=== PATIENT | female | born 1950 | race Caucasian/White ===

== ENCOUNTER 2019-01-23 13:09 | Emergency (ER) | payer MEDICARE, OTHER ==
[~2019-01-23] VITALS: Ht 165.1 cm; Wt 88.5 kg
[~2019-01-23 13:09] MED LIST: OMEPRAZOLE40 MG PO; PROZAC40 MG PO; SYNTHROID25 MCG; TRAZODONE HCL150 MG PO
--- OUTSIDE RECORDS SUMMARY | 2019-01-23 13:12 | XMS REPORT ---
Author Author [facility] Address Unknown Phone Unavailable Care Team Providers Care Slitter Helper Name Role Phone Unavailable Unavailable Payers Payer Name Policy Type Policy Number Effective Date Expiration Date Problems This patient has no known problems. Allergies, Adverse Reactions, Alerts Allergy Name Allergy Type Status Severity Reaction(s) Onset Date Inactive Date Treating Clinician Comments morphine DA Active [place] 2017-10-28 00:00:00 adhesive tape DA Active MO 2017-10-28 00:00:00 Medications This patient has no known medications. Results Test Description Test Time Test Comments Text Results Atomic Results Result Comments NM BONE SPECT SCAN 2017-08-27 13:05:12 CLINICAL INDICATION: M47.817 Spondyls w/o myelopathy or radiculopathy, lumbosacr regionMODALITY: Discovery NM/CT 670TECHNIQUE: 25 mCi Tc 99m MDP are injected IV. After a suitable time delay, whole body imaging images were obtained. SPECT imaging of the lumbar spine is performed with computer and physician-assisted 2-D and 3-D reconstruction. Co- registered low dose limited diagnostic CT images are obtained at the level of SPECT imaging.Computed Tomography Dose Index: 5.44 mGy.FINDINGS:COMPARISON: Fusion CT exam.CT Comments: The gallbladder is surgically absent. Uterus is surgically absent..Symmetric bilateral renal function is observed.Mild to moderate periodontal uptake is noted within the maxilla.Mild arthritic changes are seen at the acromioclavicular, glenohumeral, sternoclavicular, wrist and hip joints. Mild to moderate medial compartment bilateral knee, moderate left midfoot and moderate right first MTP joint uptake is seen.SPECT CT fusion images demonstrate moderate uptake to be present at the left lateral L4-5 intervertebral disc, moderate uptake at the right lateral L5-S1 intervertebral disc. Mild to moderate left L5-S1 facet, mild bilateral L4-5 facet uptake is observed as well.IMPRESSION:See comments above.PQRS 147: [id number]
--- NOTE | 2019-01-23 13:50 | Diagnostic Imaging Report ---
EXAMINATION: CXR 2 VIEW - HOPD INDICATION: Cough. COMPARISON: None FINDINGS: TUBES and LINES: None. LUNGS: Moderate lung volumes. Mild bronchial wall thickening. Mild patchy bibasilar opacities. No lobar consolidation. PLEURA: No pleural effusion or pneumothorax. HEART AND MEDIASTINUM: The cardiomediastinal silhouette is unremarkable. BONES AND SOFT TISSUES: No acute osseous lesion. Soft tissues are unremarkable. UPPER ABDOMEN: No free air under the diaphragm. Surgical clips project over the upper abdomen. IMPRESSION: Mild bronchial wall thickening, which may represent bronchitis in the setting of cough. Mild patchy bibasilar opacities, likely atelectasis, although early pneumonia is possible in the appropriate clinical setting. Signed by: Dr. Stpehen Meyer MD on 01/23/2019 1:46 PM
[2019-01-23] MEDS ORDERED: CEFTRIAXONE SOD 1 GM/NS 50 ML 50 ML IV ONE ×2 (14:15→14:17)
[2019-01-23] MEDS ORDERED: ALBUTEROL/IPRATROPIUM 3 ML NEB NEB ONE (14:15)
[2019-01-23] MEDS ORDERED: ALBUTEROL/IPRATROPIUM 3 ML NEB ONE (14:17)
[2019-01-23] MEDS ORDERED: CEFTRIAXONE SOD 1 GM VIAL ONE (14:58)
[2019-01-23 15:06] VITALS: BP 142/77
== END 2019-01-23 15:09 | disposition home or self-care (01) ==
LOC: FSED 13:09
DX: R05 Cough (principal); J20.9 Acute bronchitis, unspecified; I10 Essential (primary) hypertension; E11.9 Type 2 diabetes mellitus without complications; K92.9 Disease of digestive system, unspecified; F41.9 Anxiety disorder, unspecified
CPT/HCPCS: 71046; 80053; 85025; 99284; J0696 ×2

== ENCOUNTER 2020-01-08 13:58 | Emergency (ER) | payer MEDICARE, OTHER ==
[~2020-01-08] VITALS: Ht 165.1 cm; Wt 88.5 kg
--- OUTSIDE RECORDS SUMMARY | 2020-01-08 14:51 | XMS REPORT | Clinical Summary ---
Author Author [facility] Organization [facility] Address Unknown Phone Unavailable Care Team Providers Care Liquor Tester Name Role Phone Shantel Carpenter MD PCP Allergies Comments Active Allergy Reactions Severity Noted Date "tears skin" - Paper tape OK Adhesive Tape-Silicones 10/28/2017 Itching, throat tightening Morphine Swelling 10/28/2017 Medications End Date Status Medication Sig Dispensed Refills Start Date Active venlafaxine XR Take 150 mg 0 (EFFEXOR-XR) 150 MG 24 hr by mouth capsule daily. Active melatonin 10 mg tablet Take by mouth 0 nightly. Active ferrous sulfate 325 (65 Take 325 mg 0 FE) MG tablet by mouth every other day. Active folic Take 1 tablet 0 acid/multivit-min/lutein by mouth (CENTRUM SILVER ORAL) daily. Active riFAXimin (XIFAXAN) 550 Take 550 mg 0 mg tablet by mouth 2 (two) times a day. Active metFORMIN (GLUCOPHAGE) Take 1 tablet 180 tablet 1 0 1,000 mg (1,000 mg 0 tabletIndications: Type 2 total) by diabetes mellitus without mouth 2 (two) complication, without times a day long-term current use of with meals. insulin (HCC) Active imipramine (TOFRANIL) 10 Take 1 tablet 90 tablet 3 MG tabletIndications: (10 mg total) 0 Enureses by mouth nightly. Active omeprazole (PriLOSEC) 40 Take 1 90 capsule 3 0 MG capsuleIndications: capsule (40 0 Gastroesophageal reflux mg total) by disease, esophagitis mouth daily. presence not specified Active olmesartan (BENICAR) 40 Take 1 tablet 90 tablet 3 MG tabletIndications: (40 mg total) 0 Essential hypertension by mouth daily. Active glipiZIDE (GlucotroL) 10 Take 1 tablet 90 tablet 0 MG tabletIndications: (10 mg total) 0 Type 2 diabetes mellitus by mouth without complication, daily with without long-term current breakfast. use of insulin (HCC) Active traZODone (DESYREL) 300 Take 1 tablet 90 tablet 1 MG tabletIndications: (300 mg 0 Mood insomnia (HCC) total) by mouth nightly. Active pilocarpine (SALAGEN) 7.5 Take 1 tablet 270 tablet 1 MG tabletIndications: (7.5 mg 0 Xerostomia total) by mouth 3 (three) times a day. Active Synthroid 137 mcg Take 1 tablet 30 tablet 1 tabletIndications: (137 mcg 0 Acquired hypothyroidism total) by mouth daily. Active gabapentin (NEURONTIN) TAKE 2 180 capsule 0 300 mg CAPSULES BY 0 capsuleIndications: MOUTH 3 TIMES Chronic bilateral low A DAY back pain without sciatica Active cyclobenzaprine TAKE 1 TABLET 90 tablet 0 12/09/19 2 (FLEXERIL) 10 mg BY MOUTH 0 tabletIndications: Status THREE TIMES A post lumbar spine surgery DAY NEEDED for decompression of FOR MUSCLE spinal cord SPASMS 04/14/2019 Discontinued (Reorder) metFORMIN (GLUCOPHAGE) Take 1,000 mg 0 04/21/ 01 1,000 mg tablet by mouth 2 7 (two) times a day with meals. 04/14/2019 Discontinued (Reorder) omeprazole (PriLOSEC) 40 TAKE ONE 3 07/02 MG capsule CAPSULE BY 8 MOUTH ONCE A DAY 10/12/2019 Discontinued (Patient Discha rge) traZODone (DESYREL) 50 MG Take 150 mg 0 07/31 tablet by mouth 8 nightly. Pt reports taking two tabs at bedtime 04/14/2019 Discontinued (Patient Discha rge) valsartan (DIOVAN) 160 MG Take 160 mg 0 tablet by mouth 8 daily. 04/14/2019 Discontinued (Reorder) imipramine (TOFRANIL) 10 Take 10 mg by 1 06/25 MG tablet mouth 8 nightly. 04/14/2019 Discontinued (Reorder) SYNTHROID 125 mcg tablet Take 125 mcg 0 08/13 by mouth 8 daily. 11/04/2019 Discontinued (Reorder) pilocarpine (SALAGEN) 7.5 Take 7.5 mg 5 2/201 MG tablet by mouth 3 8 (three) times a day. 04/14/2019 Discontinued (Reorder) gabapentin (NEURONTIN) Take 300 mg 0 300 mg capsule by mouth 3 (three) times a day. 06/13/2019 Discontinued (Med List Clean up) clonAZEPAM (KlonoPIN) 1 Take 2 mg by 0 MG tablet mouth as needed for anxiety. 04/14/2019 Discontinued (Patient Discha rge) [id number] Take by 0 utein (CENTRUM SILVER) mouth. 0.4-300-250 mg-mcg-mcg tablet 03/20/2019 Discontinued cyclobenzaprine TAKE 1 TABLET 90 tablet 0 10/09/19 1 (FLEXERIL) 10 mg BY MOUTH 3 9 tabletIndications: Status TIMES A DAY post lumbar spine surgery NEEDED FOR for decompression of MUSCLE SPASMS spinal cord 08/09/2019 Discontinued spironolactone Take 1 tablet 180 tablet 3 (ALDACTONE) 25 MG (25 mg total) 9 tabletIndications: by mouth 2 Cirrhosis of liver (two) times a without ascites, day. unspecified hepatic cirrhosis type (HCC), Bilateral lower extremity edema 08/09/2019 Discontinued furosemide (LASIX) 20 mg Take 1 tablet 90 tablet 3 tabletIndications: (20 mg total) 9 Cirrhosis of liver by mouth without ascites, daily. unspecified hepatic cirrhosis type (HCC), Bilateral lower extremity edema 01/11/2019 Discontinued (Patient Discha rge) LACTULOSE ORAL Take by 0 mouth. 11/04/2019 Discontinued (Patient Discha rge) lactulose (CHRONULAC) 10 Take by mouth 3 11/09 gram/15 mL solution 2 (two) times 9 a day. 04/14/2019 Discontinued (Reorder) glipiZIDE (GLUCOTROL) 10 Take 10 mg by 2 11/20 MG tablet mouth daily. 9 01/16/2019 methylPREDNISolone Take 1 tablet 21 tablet 0 01/11 (MEDROL DOSEPAK) 4 mg (4 mg total) 9 tablet by mouth See Admin Instructions for 5 days. Use as directed by package instructions 02/09/2019 Discontinued (Reorder) meloxicam (MOBIC) 15 mg Take 1 tablet 30 tablet 0 tablet (15 mg total) 9 by mouth daily for 30 days. 02/04/2019 predniSONE (DELTASONE) 20 Take 2 10 tablet 0 mg tablet tablets (40 9 mg total) by mouth daily for 5 days. 02/04/2019 levoFLOXacin (LEVAQUIN) Take 1 tablet 5 tablet 0 750 MG tablet (750 mg 9 total) by mouth daily for 5 days. 02/15/2019 Discontinued albuterol (PROVENTIL) 5 Take 0.5 mL 20 mL 0 mg/mL nebulizer solution (2.5 mg 9 total) by nebulization every 6 (six) hours as needed for wheezing for up to 30 days. 01/30/2019 nebulizers misc 1 Units once 1 each 0 for 1 dose. 9 03/16/2019 Discontinued meloxicam (MOBIC) 15 mg Take 1 tablet 30 tablet 0 tablet (15 mg total) 9 by mouth daily for 30 days. 03/30/2019 acetaminophen-codeine Take 1 tablet 40 tablet 0 (TYLENOL WITH CODEINE #4) by mouth 9 300-60 mg per every 4 tabletIndications: acute (four) hours pain as needed for moderate pain for up to 30 days .acute pain. 04/11/2019 Discontinued meloxicam (MOBIC) 15 mg TAKE 1 TABLET 30 tablet 0 tablet BY MOUTH 0 EVERY DAY 04/04/2019 Discontinued (Reorder) cyclobenzaprine TAKE 1 TABLET 90 tablet 0 03/20/19 2 (FLEXERIL) 10 mg BY MOUTH 0 tabletIndications: Status THREE TIMES A post lumbar spine surgery DAY NEEDED for decompression of FOR MUSCLE spinal cord SPASMS 07/21/2019 Discontinued cyclobenzaprine TAKE 1 TABLET 90 tablet 0 04/04/19 2 (FLEXERIL) 10 mg BY MOUTH 0 tabletIndications: Status THREE TIMES A post lumbar spine surgery DAY NEEDED for decompression of FOR MUSCLE spinal cord SPASMS 04/14/2019 Discontinued (Patient Discha rge) meloxicam (MOBIC) 15 mg TAKE 1 TABLET 30 tablet 0 tablet BY MOUTH 0 EVERY DAY 04/14/2019 Discontinued (Reorder) olmesartan (BENICAR) 40 Take 40 mg by 0 MG tablet mouth daily. 07/13/2019 Discontinued glipiZIDE (GLUCOTROL) 10 Take 1 tablet 180 tablet 1 MG tabletIndications: (10 mg total) 0 Type 2 diabetes mellitus by mouth 2 without complication, (two) times a without long-term current day before use of insulin (HCC) meals. 10/31/2019 Discontinued SYNTHROID 125 mcg Take 1 tablet 90 tablet 1 tabletIndications: (125 mcg 0 Acquired hypothyroidism total) by mouth daily. 05/09/2019 Discontinued gabapentin (NEURONTIN) Take 1 180 capsule 0 300 mg capsule (300 0 capsuleIndications: mg total) by Diabetic polyneuropathy mouth 3 associated with type 2 (three) times diabetes mellitus (HCC) a day. 06/06/2019 Discontinued gabapentin (NEURONTIN) Take 2 pills 180 capsule 0 300 mg capsule tid 0 11/04/2019 Discontinued (Reorder) gabapentin (NEURONTIN) TAKE 2 180 capsule 0 300 mg capsule CAPSULES BY 0 MOUTH THREE TIMES A DAY 08/09/2019 Discontinued (Side effects) zinc sulfate (ZINCATE) Take 1 60 capsule 11 220 (50) mg capsule (220 0 capsuleIndications: HE mg total) by (hepatic encephalopathy) mouth 2 (two) (HCC) times a day. 10/03/2019 Discontinued cyclobenzaprine TAKE 1 TABLET 90 tablet 0 07/21/19 2 (FLEXERIL) 10 mg BY MOUTH 0 tabletIndications: Status THREE TIMES A post lumbar spine surgery DAY NEEDED for decompression of FOR MUSCLE spinal cord SPASMS 09/18/2019 Discontinued (Stop Taking at Discharge) furosemide (LASIX) 20 mg Take 2 180 tablet 3 0 tabletIndications: tablets (40 0 Cirrhosis of liver mg total) by without ascites, mouth daily. unspecified hepatic cirrhosis type (HCC), Bilateral lower extremity edema 09/18/2019 Discontinued (Stop Taking at Discharge) spironolactone Take 2 360 tablet 3 (ALDACTONE) 25 MG tablets (50 0 tabletIndications: mg total) by Cirrhosis of liver mouth 2 (two) without ascites, times a day. unspecified hepatic cirrhosis type (HCC), Bilateral lower extremity edema 10/18/2019 furosemide (LASIX) 20 mg Take 1 tablet 60 tablet 0 tablet (20 mg total) 0 by mouth 2 (two) times a day for 30 days. Additional Information Patient taking differently: 20 mg oral daily, Reported on 10/12/2019 12/09/2019 Discontinued cyclobenzaprine TAKE 1 TABLET 90 tablet 0 10/03/19 2 (FLEXERIL) 10 mg BY MOUTH 0 tabletIndications: Status THREE TIMES A post lumbar spine surgery DAY NEEDED for decompression of FOR MUSCLE spinal cord SPASMS 11/04/2019 Discontinued (Reorder) traZODone (DESYREL) 150 Take 150 mg 0 MG tablet by mouth 2 (two) times a day. 11/04/2019 Discontinued (Patient Discha rge) ondansetron ODT (Zofran Take 1 tablet 30 tablet 0 ODT) 4 MG disintegrating (4 mg total) 0 tabletIndications: by mouth Nausea, Liver cirrhosis every 12 secondary to PICHARDO (HCC) (twelve) hours as needed for nausea or vomiting. 11/08/2019 Discontinued Synthroid 125 mcg TAKE 1 TABLET 30 tablet 5 tabletIndications: BY MOUTH 0 Acquired hypothyroidism EVERY DAY 11/22/2019 Discontinued gabapentin (NEURONTIN) Take 1 270 capsule 1 300 mg capsule (300 0 capsuleIndications: mg total) by Chronic bilateral low mouth 3 back pain without (three) times sciatica a day. TAKE 2 CAPSULES BY MOUTH THREE TIMES A DAY 11/24/2019 acetaminophen-codeine Take 1 tablet 40 tablet 0 (TYLENOL WITH CODEINE #3) by mouth 0 300-30 mg per every 6 (six) tabletIndications: hours as chronic pain needed for moderate pain for up to 10 days .chronic pain. Active Problems Problem Noted Date Other cirrhosis of liver 09/28/2019 Hyperkalemia 09/28/2019 Hyponatremia syndrome 09/15/2019 Pseudophakia 07/27/2019 Overview: OU Dr. Jaqui Dietrich ast Assessment & Plan: OU Dr. 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 Pauline rubi stekrys AMD. Saw Dr. 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 Second opinion here. Was given [facility] and [facility] recs by Dr. Dove and asked to f/u in 3-6 months. Sisters see me, have AMD as well. st bray. Agree with above. Info given. Continue retina/[facility] followup. Vitreous floaters of both eyes 07/27/2019 Last Assessment & Plan: Explained to patient. Optic nerve cupping of both eyes 07/27/2019 Last Assessment & Plan: Formatting of this note might be differ ent from the original. C/D increase seen on imaging by Dr. Michel valdes. Agree, mild, OS > OD, normal IOP and ex cellent CH. -. Follow. Get baseline OCT ON in future. 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 Carpenter. No diabetic retinopathy. Annual exams r ecommended. Importance of good blood sugar control discussed. Note sent. Encounters Care Team Description Date Type Specialty 12/13/2019 Travel Shantel Carpenter MD Acquired hypothyroidism 12/13/2019 Refill Internal Medicine Nura Navarro III, MD Status post lumbar spine surgery for dec ompression of spinal cord 12/09/2019 Refill Orthopedic Surgery 12/07/2019 Travel 12/01/2019 Travel 11/23/2019 Travel Paul Fontana MD Cirrhosis of liver with ascites, unspeci fied hepatic cirrhosis type (HCC) (Primary Dx); Diffuse abdominal pain; Chronic kidney disease, unspecified CKD stage; Other ascites; Abdominal pain, unspecified abdominal location 11/22/2019 Telemedicine Hepatology Nura Navarro III, MD Chronic bilateral low back pain without sciatica 11/21/2019 Refill Orthopedic Surgery 11/18/2019 Travel 11/16/2019 Travel Nura Navarro III, MD 11/14/2019 Orders Only Orthopedic Surgery Shantel Carpenter MD Acquired hypothyroidism 11/08/2019 Orders Only Internal Medicine Sahntel Carpenter MD 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) (Primary Dx); Type 2 diabetes mellitus without complication, without long-term current use of insulin (HCC); Acquired hypothyroidism; Chronic bilateral low back pain without sciatica; Nocturnal enuresis; Xerostomia; Mood insomnia (HCC) 11/04/2019 Telemedicine Internal Medicine 11/04/2019 Travel Shantel Carpenter MD Acquired hypothyroidism 10/29/2019 Refill Internal Medicine Paul Fontana MD HE (hepatic encephalopathy) (HCC) (Prima ry Dx); Cirrhosis of liver with ascites, unspecified hepatic cirrhosis type (HCC); Diffuse abdominal pain; Chronic kidney disease, unspecified CKD stage 10/28/2019 Telemedicine Hepatology 10/18/2019 Travel Shantel Carpenter MD Type 2 diabetes mellitus without complic ation, without long-term current use of insulin (HCC) (Primary Dx); Nausea; 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) 10/12/2019 Telephone Internal Medicine Consult 10/12/2019 Travel Paul Fontana MD Hepatic cirrhosis, unspecified hepatic c irrhosis type, unspecified whether ascites present (HCC) (Primary Dx); Hyperkalemia; Cirrhosis of liver with ascites, unspecified hepatic cirrhosis type (HCC); HE (hepatic encephalopathy) (HCC); Abnormal LFTs 10/10/2019 Telemedicine Hepatology 10/10/2019 Travel Denita Nolen MA 10/07/2019 Telephone Hepatology 10/05/2019 Travel Nura Navarro III, MD Spinal stenosis, lumbar region with neur ogenic claudication (Primary Dx) 10/05/2019 Transcribe Physical Therapy Orders 10/03/2019 Travel 09/30/2019 Travel Nura Navarro III, MD Status post lumbar spine surgery for dec ompression of spinal cord 09/30/2019 Refill Orthopedic Surgery Shantel Carpenter MD Abdominal bloating (Primary Dx); Type 2 diabetes mellitus without complication, without long-term current use of insulin (HCC); Essential hypertension; 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); Acquired hypothyroidism 09/28/2019 Telemedicine Internal Medicine Paul Fontana MD Other cirrhosis of liver (HCC) (Primary Dx); Hyperkalemia 09/28/2019 Telemedicine Hepatology 09/27/2019 Travel 09/23/2019 Travel 09/21/2019 Travel 09/19/2019 Travel Nura Navarro III, MD Spinal stenosis, lumbar region with neur ogenic claudication (Primary Dx) 09/16/2019 Transcribe Physical Therapy Orders Ron Cox DO [place]res, Omar Winston, MD Hyponatremia syndrome (Primary Dx) 09/15/2019 [facility] General Surgery - Encounter 09/18/2019 Annie Song LVN 09/15/2019 Telephone Hepatology 09/15/2019 Travel Annie Song LVN Abnormal LFTs (Primary Dx); Fatty liver; Serum potassium elevated; Elevated serum creatinine 09/13/2019 Telephone Hepatology Lachelle Carlson DO 09/12/2019 Orders Only Gastroenterology 09/12/2019 Travel 08/30/2019 Travel Paul Fontana MD Hepatic cirrhosis, unspecified hepatic c irrhosis type, unspecified whether ascites present (HCC); Bilateral lower extremity edema; Hepatic encephalopathy (HCC); Diffuse abdominal pain 08/23/2019 Lab Lab Paul Fontana MD Hepatic cirrhosis, unspecified hepatic c irrhosis type, unspecified whether ascites present (HCC) (Primary Dx); Bilateral lower extremity edema; Hepatic encephalopathy (HCC); Diffuse abdominal pain 08/23/2019 Office Visit Hepatology 08/23/2019 Travel Tony Alicea MD Cirrhosis of liver without ascites, unsp ecified hepatic cirrhosis type (HCC) 08/10/2019 Hospital Radiology Encounter Paul Fontana MD Cirrhosis of liver without ascites, unsp ecified hepatic cirrhosis type (HCC); Bilateral lower extremity edema; Other ascites 08/10/2019 Hospital Radiology Encounter Alee Apodcaa, CRISTOFER 08/10/2019 Telephone Radiology 08/10/2019 Travel Paul Fontana MD Canceled (Patient) 08/09/2019 Hospital Radiology Encounter Paul Fontana MD Cirrhosis of liver without ascites, unsp ecified hepatic cirrhosis type (HCC); Bilateral lower extremity edema; Other ascites 08/09/2019 Lab Lab Paul Fontana MD Other ascites (Primary Dx); Cirrhosis of liver without ascites, unspecified hepatic cirrhosis type (HCC); Bilateral lower extremity edema 08/09/2019 Office Visit Hepatology Annie Song LVN Other ascites (Primary Dx) 08/09/2019 Telephone Hepatology Alee Apodaca RN 08/09/2019 Telephone Radiology 08/08/2019 Travel 08/05/2019 Travel 08/01/2019 Travel Paul Fontana MD HE (hepatic encephalopathy) (HCC) (Prima ry Dx); Cirrhosis of liver without ascites, unspecified hepatic cirrhosis type (HCC); Abnormal LFTs; Bilateral lower extremity edema 07/29/2019 Telemedicine Hepatology 07/28/2019 Travel Kofi Pastor MD Type 2 diabetes mellitus without complic ation, without long-term current use of insulin (HCC) (Primary Dx); Pattern dystrophy of retinal pigment epithelium; Vitreous floaters of both eyes; Optic nerve cupping of both eyes 07/27/2019 Office Visit Ophthalmology 07/26/2019 Travel 07/22/2019 Travel Nura Navarro III, MD Status post lumbar spine surgery for dec ompression of spinal cord 07/21/2019 Refill Orthopedic Surgery 07/20/2019 Travel 07/18/2019 Travel 07/15/2019 Travel 07/14/2019 Travel Shantel Carpenter MD Type 2 diabetes mellitus without complic ation, without long-term current use of insulin (HCC) (Primary Dx); Essential hypertension; Mixed hyperlipidemia; 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); Acquired hypothyroidism; Recurrent falls; Portosystemic encephalopathy (HCC) 07/13/2019 Telemedicine Internal Medicine 07/12/2019 Travel 07/11/2019 Travel Suma Song MA Spinal stenosis of lumbar region with ne urogenic claudication (Primary Dx) 07/11/2019 Orders Only Orthopedic Surgery Paul Fontana MD HE (hepatic encephalopathy) (HCC) (Prima ry Dx); Cirrhosis of liver without ascites, unspecified hepatic cirrhosis type (HCC); Abnormal LFTs; Bilateral lower extremity edema; Other fatigue; Chronic low back pain, unspecified back pain laterality, unspecified whether sciatica present; Fatty liver 07/07/2019 Telemedicine Hepatology Nura Navarro III, MD 07/06/2019 Telephone Physical Therapy Nura Navarro III, MD Spinal stenosis of lumbar region with ne urogenic claudication (Primary Dx) 06/13/2019 Telemedicine Orthopedic Surgery Nura Navarro III, MD 06/05/2019 Refill Orthopedic Surgery Tiffanie Benitez MA 05/23/2019 Telephone Hepatology Nura Navarro III, MD Spinal stenosis of lumbar region with ne urogenic claudication (Primary Dx) 05/09/2019 Office Visit Orthopedic Surgery Jacob Mcclelland MD Cough 05/09/2019 Hospital Radiology Encounter Jacob Mcclelland MD Cough 05/09/2019 Hospital Radiology Encounter Jacob Mcclelland MD Dyspnea, unspecified 05/09/2019 Hospital Procedural Cardiolo gy Encounter 05/09/2019 Travel Lucy Cristobal MD Brotherman, Stephen Matthew, CRNA 04/29/2019 Anesthesia Orthopedic Surgery Event Nura Navarro III, MD Caudal epidural steroid injection 04/29/2019 Surgery Orthopedic Surgery Nura Navarro III, MD 04/29/2019 Hospital Orthopedic Surgery Encounter Rebekah Campoverde MD Chronic cough (Primary Dx) 04/28/2019 Office Visit Otolaryngology Manuel Stanley, [facility]3]-[employer] Dysphonia; Cough 04/28/2019 Speech & Otolaryngology Language Eval Nura Navarro III, MD Spinal stenosis of lumbar region, unspec ified whether neurogenic claudication present (Primary Dx); Status post lumbar spine surgery for decompression of spinal cord 04/26/2019 Office Visit Orthopedic Surgery Suma Song MA 04/26/2019 Documentation Orthopedic Surgery Shantel Carpenter MD Encounter for screening mammogram for ma lignant neoplasm of breast ; Breast cancer screening 04/22/2019 Hospital Radiology Encounter Paul Fontana MD Cirrhosis of liver without ascites, unsp ecified hepatic cirrhosis type (HCC); HE (hepatic encephalopathy) (HCC); Abdominal pain, unspecified abdominal location; Gastroesophageal reflux disease without esophagitis 04/22/2019 Hospital Radiology Encounter Shantel Carpenter MD Routine general medical examination at a health care facility (Primary Dx); Establishing care with new doctor, encounter for; Dietary counseling; Exercise counseling; Type 2 diabetes mellitus without complication, without long-term current use of insulin (HCC); Essential hypertension; Mixed hyperlipidemia; Spinal stenosis, lumbar region, with neurogenic claudication; 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); Acquired hypothyroidism; Obesity (BMI 30-39.9); Need for pneumococcal vaccination; Breast cancer screening; Enureses; Mucositis; Xerostomia; Gastroesophageal reflux disease, esophagitis presence not specified; Diabetic polyneuropathy associated with type 2 diabetes mellitus (HCC); Encounter for screening mammogram for malignant neoplasm of breast ; Idiopathic progressive neuropathy 04/14/2019 Office Visit Internal Medicine Nura Navarro III, MD Caudal epidural steroid injection 04/11/2019 Surgery Orthopedic Surgery Diego Su II, MD Szary, Stephanie 04/11/2019 Anesthesia Orthopedic Surgery Event Nura Navarro III, MD 04/11/2019 Hospital Orthopedic Surgery Encounter Nura Navarro III, MD 04/10/2019 Refill Orthopedic Surgery Suma Song MA 04/08/2019 Documentation Orthopedic Surgery Nura Navarro III, MD Spinal stenosis of lumbar region with ne urogenic claudication (Primary Dx); Status post lumbar spine surgery for decompression of spinal cord 04/04/2019 Office Visit Orthopedic Surgery Val Blanco 04/01/2019 Telephone Otolaryngology Jacob Mcclelland MD Cough (Primary Dx); Dyspnea, unspecified; Other abnormalities of breathing; Gastro-esophageal reflux disease without esophagitis; Obstructive sleep apnea (adult) (pediatric); Other specified health status; Dietary counseling and surveillance; Obesity, unspecified; Immunization not carried out because of patient decision for unspecified reason 03/31/2019 Lab Lab Jacob Mcclelland MD Cough (Primary Dx); Dyspnea, unspecified; Other abnormalities of breathing 03/31/2019 Transcribe Access Orders Coni Singletary RN Spinal stenosis of lumbar region without neurogenic claudication (Primary Dx) 03/25/2019 Telephone Orthopedic Surgery Mary Schaefer MD 03/21/2019 Anesthesia Orthopedic Surgery Event Nura Navarro III, MD Caudal epidural steroid injection 03/21/2019 Surgery Orthopedic Surgery Nura Navarro III, MD 03/21/2019 Hospital Orthopedic Surgery Encounter Nura Navarro III, MD Status post lumbar spine surgery for dec ompression of spinal cord 03/20/2019 Refill Orthopedic Surgery Nura Navarro III, MD Spinal stenosis of lumbar region without neurogenic claudication (Primary Dx) 03/18/2019 Office Visit Orthopedic Surgery Suma Song MA 03/18/2019 Documentation Orthopedic Surgery Suma Song MA 03/18/2019 Documentation Orthopedic Surgery Nura Navarro III, MD 03/16/2019 Refill Orthopedic Surgery Nura Navarro III, MD Status post lumbar spine surgery for dec ompression of spinal cord 03/09/2019 Hospital Radiology Encounter Suma Song MA Spinal stenosis of lumbar region with ne urogenic claudication (Primary Dx) 03/08/2019 Orders Only Orthopedic Surgery Nura Navarro III, MD Status post lumbar spine surgery for dec ompression of spinal cord (Primary Dx) 02/28/2019 Office Visit Orthopedic Surgery Annie Song LVN 02/16/2019 Telephone Hepatology Paul Fontana MD Cirrhosis of liver without ascites, unsp ecified hepatic cirrhosis type (HCC) (Primary Dx); HE (hepatic encephalopathy) (HCC); Abdominal pain, unspecified abdominal location; Gastroesophageal reflux disease without esophagitis 02/15/2019 Office Visit Hepatology Nura Navarro III, MD Spinal stenosis of lumbar region with ne urogenic claudication (Primary Dx); Status post lumbar spine surgery for decompression of spinal cord 02/09/2019 Office Visit Orthopedic Surgery Boni Negron MD Acute bronchitis, unspecified organism ( Primary Dx) 01/30/2019 Emergency Emergency Medicine Nura Navarro III, MD Spinal stenosis of lumbar region with ne urogenic claudication (Primary Dx); Status post lumbar spine surgery for decompression of spinal cord 01/18/2019 Office Visit Orthopedic Surgery Nura Navarro III, MD Pain of left hip joint (Primary Dx) 01/11/2019 Office Visit Orthopedic Surgery after 01/07/2019 Immunizations Name Administration Dates Next Due Hep A / Hep B 11/16/2014 Pneumococcal Conjugate 04/14/2019, 10/26/2014 13-Valent Tdap 11/13/2016 Surgical History Surgery Date Site/Laterality Comments REDUCTION MAMMAPLASTY HYSTERECTOMY COLONOSCOPY 5 yrs ago LAMINECTOMY, LUMBAR 02/08/2018 Spine Procedure: Decompressive laminectomies and Lumbar/Lower foraminotomies L4-5 and L5- S1; Surgeon: Nura Navarro III, MD; Location: [facility] OR; Service: Orthopedics; Laterality: Lowe r; Medical devices from this surgery are i n the Implants section. LAMINECTOMY, LUMBAR 02/16/2018 Spine Procedure: Redo Decompressive laminectomies and Lumbar/Lower foraminotomies left L4-5 an d left L5-S1; Surgeon: Nura Navarro III, MD; Location: [facility] OR; Service: Orthopedics; Laterality: Lower; Medical devices from this surgery are i n the Implants section. ESOPHAGOGASTRODUODENOSCOP 08/05/2018 N/A Proc edure: EGD; Surgeon: Quintin Orlando MD; Y (EGD) Location: [facility]; ervice: Gastroenterology; Laterality: N/A; INJECTION, STEROID, 03/21/2019 Spine Procedure: Caudal epidural steroid injection; SPINE, LUMBAR, EPIDURAL, Lumbar/N/A Surgeon: Nura Stevens III, MD; Location: [facility] OR; Service: Or thopedics; Laterality: N/A; INJECTION, STEROID, 04/11/2019 Spine Procedure: Caudal epidural steroid injection; SPINE, LUMBAR, EPIDURAL, Lumbar/N/A Surgeon: Nura Stevens III, MD; Location: [facility] OR; Service: Or thopedics; Laterality: N/A; INJECTION, STEROID, 04/29/2019 Spine Procedure: Caudal epidural steroid injection; SPINE, LUMBAR, EPIDURAL, Lumbar/N/A Surgeon: Nura Stevens III, MD; Location: [facility] OR; Service: Or thopedics; Laterality: N/A; Medical History Medical History Date Comments Fatty liver Asthma Arthritis Skin thinning Hypertension Colon polyp Osteoarthritis 1999 Ganglion cyst 1998 Bursitis 1998 Diabetes mellitus (HCC) Anxiety Cancer (HCC) Lymphoma (HCC) 06/30/2017 patient in remissio n, radiation tx received Type 2 diabetes mellitus (HCC) Cirrhosis of liver (HCC) Disease of thyroid gland Hypothyroidism GERD (gastroesophageal reflux disease) Family History Medical History Relation Name Comments Brain cancer Father Lung cancer Mother Colon cancer Paternal Grandfather Relation Name Status Comments Father Mother Paternal Grandfather Social History Date Tobacco Use Types Packs/Day Years Used Never Smoker Smokeless Tobacco: Never Used Drinks/Week oz/Week Comments Alcohol Use No Sex Assigned at Date Recorded Not on file Date Recorded COVID-19 Exposure Response 12/13/2019 2:51 PM CDT In the last month, have you been in contact with No / Unsure someone who was confirmed or suspected to have Coronavirus / COVID-19? Last Filed Vital Signs Reading Time Taken Comments Vital Sign 115/53 09/18/2019 7:38 AM CDT Blood Pressure 75 09/18/2019 7:38 AM CDT Pulse 36.7 C (98.1 F) 09/18/2019 7:38 AM CDT Temperature 18 09/18/2019 7:38 AM CDT Respiratory Rate 95% 09/18/2019 7:38 AM CDT Oxygen Saturation - - Inhaled Oxygen Concentration 90.3 kg (199 lb) 09/18/2019 6:00 AM CDT Weight 165.1 cm (5' 5") 09/28/2019 3:53 PM CDT Height 33.12 09/15/2019 5:38 PM CDT Body Mass Index Plan of Treatment Health Maintenance Due Date Last Done Comments INFLUENZA VACCINE 10/01/2019 02/10/2019 65+ PNEUMOCOCCAL VACCINE 04/14/2020 04/14/2019, (2 of 2 - PPSV23) 10/26/2014 DIABETIC FOOT EXAM 04/14/2020 04/14/2019, 04/14/2019, 04/14/2019, Additional history exists SHINGLES VACCINES (#1) 04/14/2020 Postponed from 02/04/2002 (Insurance / Financial) BREAST CANCER SCREENING 04/22/2021 04/22/2019 DIABETES: RETINAL EYE 11/09/2021 11/10/2019, EXAM 07/27/2019, 07/27/2019, Additional history exists DXA SCAN 07/31/2022 07/31/2017 COLONOSCOPY SCREENING 03/02/2028 03/02/2018 Implants Device Identifier Shelf Expiration Date Model / Serial / L ot Implanted Type Area Manufactur er 07/31/2019 [id number] / / [id number] Matrix Dural Duragen Plus 3x3in Human N/A: N/A [employer] Regnrtn - [id number] Tissue LIFESCIENC Implanted: Qty: 1 on 02/08/2018 by Implants Nura Fernandez III, MD at [facility] 09/29/2020 [id number] / / [id number] Matrix Dural Duragen Plus 2x2in Human Posterior: [employer] Regnrtn - [id number] Tissue Spine Lumbar LIFESCIEN C Implanted: Qty: 1 on 02/16/2018 by Implants Nura Fernandez III, MD at [facility] Procedures Comments Procedure Name Priority Date/Time Associated Diag nosis HC COMPLETE BLD COUNT Routine 11/04/2019 Acute ki dney failure, W/AUTO DIFF 2:18 PM CDT unspecified (HCC) ESTIMATED GFR Routine 11/04/2019 2:18 PM CDT URINALYSIS SCREEN AND Routine 11/04/2019 Type 2 d iabetes mellitus MICROSCOPY, WITH REFLEX 2:18 PM CDT without compl ications TO CULTURE (HCC) Hypothyroidism, unspecified HEMOGLOBIN A1C Routine 11/04/2019 Type 2 diabetes mellitus 2:18 PM CDT without complications (HCC) Hypothyroidism, unspecified T4, FREE Routine 11/04/2019 Type 2 diabetes mellitus 2:18 PM CDT without complications (HCC) Hypothyroidism, unspecified THYROID STIMULATING Routine 11/04/2019 Type 2 jens betes mellitus HORMONE 2:18 PM CDT without complicatio ns (HCC) Hypothyroidism, unspecified COMPREHENSIVE METABOLIC Routine 11/04/2019 Type 2 diabetes mellitus PANEL 2:18 PM CDT without complicatio ns (HCC) Hypothyroidism, unspecified URINE CULTURE Routine 11/04/2019 2:18 PM CDT ESTIMATED GFR Routine 10/18/2019 1:45 PM CDT RENAL FUNCTION PANEL Routine 10/18/2019 Hyperkale mike 1:45 PM CDT Acute kidney failure, unspecified (HCC) ESTIMATED GFR Routine 10/18/2019 1:45 PM CDT IMMUNOGLOBULIN M Routine 10/18/2019 Hepatic cirrh osis, 1:45 PM CDT unspecified hepatic cirrhosis type, unspecified whether ascites present (HCC) Hyperkalemia Cirrhosis of liver with ascites, unspecified hepatic cirrhosis type (HCC) HE (hepatic encephalopathy) (HCC) Abnormal LFTs IMMUNOGLOBULIN A Routine 10/18/2019 Hepatic cirrh osis, 1:45 PM CDT unspecified hepatic cirrhosis type, unspecified whether ascites present (HCC) Hyperkalemia Cirrhosis of liver with ascites, unspecified hepatic cirrhosis type (HCC) HE (hepatic encephalopathy) (HCC) Abnormal LFTs IMMUNOGLOBULIN G Routine 10/18/2019 Hepatic cirrh osis, 1:45 PM CDT unspecified hepatic cirrhosis type, unspecified whether ascites present (HCC) Hyperkalemia Cirrhosis of liver with ascites, unspecified hepatic cirrhosis type (HCC) HE (hepatic encephalopathy) (HCC) Abnormal LFTs PROTHROMBIN TIME WITH INR Routine 10/18/2019 Hepa tic cirrhosis, 1:45 PM CDT unspecified hepatic cirrhosis type, unspecified whether ascites present (HCC) Hyperkalemia Cirrhosis of liver with ascites, unspecified hepatic cirrhosis type (HCC) HE (hepatic encephalopathy) (HCC) Abnormal LFTs COMPREHENSIVE METABOLIC Routine 10/18/2019 Hepati c cirrhosis, PANEL 1:45 PM CDT unspecified hepatic cirrhosis type, unspecified whether ascites present (HCC) Hyperkalemia Cirrhosis of liver with ascites, unspecified hepatic cirrhosis type (HCC) HE (hepatic encephalopathy) (HCC) Abnormal LFTs HC COMPLETE BLD COUNT Routine 10/18/2019 Hepatic cirrhosis, W/AUTO DIFF 1:45 PM CDT unspecified hepatic cirrhosis type, unspecified whether ascites present (HCC) Hyperkalemia Cirrhosis of liver with ascites, unspecified hepatic cirrhosis type (HCC) HE (hepatic encephalopathy) (HCC) Abnormal LFTs ESTIMATED GFR Routine 10/05/2019 2:03 PM CDT PHOSPHORUS LEVEL Routine 10/05/2019 Cirrhosis (HC C) 2:03 PM CDT Hyperkalemia MAGNESIUM LEVEL Routine 10/05/2019 Cirrhosis (HCC ) 2:03 PM CDT Hyperkalemia COMPREHENSIVE METABOLIC Routine 10/05/2019 Cirrho sis (HCC) PANEL 2:03 PM CDT Hyperkalemia POC GLUCOSE Routine 09/18/2019 5:46 AM CDT POC GLUCOSE Routine 09/17/2019 9:00 PM CDT POC GLUCOSE Routine 09/17/2019 4:41 PM CDT ESTIMATED GFR Routine 09/17/2019 3:01 PM CDT BASIC METABOLIC PANEL Routine 09/17/2019 3:01 PM CDT POC GLUCOSE Routine 09/17/2019 11:30 AM CDT POC GLUCOSE Routine 09/17/2019 6:24 AM CDT ESTIMATED GFR Routine 09/17/2019 4:31 AM CDT COMPREHENSIVE METABOLIC Routine 09/17/2019 PANEL 4:31 AM CDT POC GLUCOSE Routine 09/16/2019 8:34 PM CDT POC GLUCOSE Routine 09/16/2019 3:46 PM CDT POC GLUCOSE Routine 09/16/2019 11:38 AM CDT POC GLUCOSE Routine 09/16/2019 9:58 AM CDT POC GLUCOSE Routine 09/16/2019 9:11 AM CDT ECG 12-LEAD STAT 09/16/2019 9:06 AM CDT POC GLUCOSE Routine 09/16/2019 5:58 AM CDT ESTIMATED GFR Routine 09/16/2019 5:42 AM CDT CORTISOL LEVEL, RANDOM Routine 09/16/2019 5:42 AM CDT PHOSPHORUS LEVEL Routine 09/16/2019 5:42 AM CDT MAGNESIUM LEVEL Routine 09/16/2019 5:42 AM CDT URIC ACID LEVEL Routine 09/16/2019 5:42 AM CDT COMPREHENSIVE METABOLIC Routine 09/16/2019 PANEL 5:42 AM CDT POC GLUCOSE Routine 09/15/2019 10:27 PM CDT COVID-19 QUALITATIVE PCR STAT 09/15/2019 9:13 PM CDT POC GLUCOSE Routine 09/15/2019 6:42 PM CDT ESTIMATED GFR STAT 09/15/2019 6:02 PM CDT BASIC METABOLIC PANEL STAT 09/15/2019 6:02 PM CDT HC COMPLETE BLD COUNT STAT 09/15/2019 W/AUTO DIFF 6:02 PM CDT ESTIMATED GFR Routine 09/15/2019 12:33 PM CDT HC COMPLETE BLD COUNT Routine 09/15/2019 Abnormal LFTs W/AUTO DIFF 12:33 PM CDT Fatty liver Serum potassium elevated Elevated serum creatinine COMPREHENSIVE METABOLIC Routine 09/15/2019 Abnorm al LFTs PANEL 12:33 PM CDT Fatty liver Serum potassium elevated Elevated serum creatinine PROTHROMBIN TIME WITH INR Routine 09/15/2019 Abno rmal LFTs 12:33 PM CDT Fatty liver Serum potassium elevated Elevated serum creatinine URINALYSIS, AUTOMATED Routine 09/15/2019 Abnormal LFTs WITH MICROSCOPY 12:33 PM CDT Fatty liver Serum potassium elevated Elevated serum creatinine ESTIMATED GFR Routine 09/12/2019 4:04 PM CDT IGG SUBCLASSES Routine 09/12/2019 Hepatic cirrhos is, 4:04 PM CDT unspecified hepatic cirrhosis type, unspecified whether ascites present (HCC) Bilateral lower extremity edema Hepatic encephalopathy (HCC) Diffuse abdominal pain PROTHROMBIN TIME WITH INR Routine 09/12/2019 Hepa tic cirrhosis, 4:04 PM CDT unspecified hepatic cirrhosis type, unspecified whether ascites present (HCC) Bilateral lower extremity edema Hepatic encephalopathy (HCC) Diffuse abdominal pain COMPREHENSIVE METABOLIC Routine 09/12/2019 Hepati c cirrhosis, PANEL 4:04 PM CDT unspecified hepatic cirrhosis type, unspecified whether ascites present (HCC) Bilateral lower extremity edema Hepatic encephalopathy (HCC) Diffuse abdominal pain HC COMPLETE BLD COUNT Routine 09/12/2019 Hepatic cirrhosis, W/AUTO DIFF 4:04 PM CDT unspecified hepatic cirrhosis type, unspecified whether ascites present (HCC) Bilateral lower extremity edema Hepatic encephalopathy (HCC) Diffuse abdominal pain ESTIMATED GFR Routine 08/23/2019 4:15 PM CDT HC COMPLETE BLD COUNT Routine 08/23/2019 Hepatic cirrhosis, W/AUTO DIFF 4:15 PM CDT unspecified hepatic cirrhosis type, unspecified whether ascites present (HCC) Bilateral lower extremity edema Hepatic encephalopathy (HCC) Diffuse abdominal pain COMPREHENSIVE METABOLIC Routine 08/23/2019 Hepati c cirrhosis, PANEL 4:15 PM CDT unspecified hepatic cirrhosis type, unspecified whether ascites present (HCC) Bilateral lower extremity edema Hepatic encephalopathy (HCC) Diffuse abdominal pain PROTHROMBIN TIME WITH INR Routine 08/23/2019 Hepa tic cirrhosis, 4:15 PM CDT unspecified hepatic cirrhosis type, unspecified whether ascites present (HCC) Bilateral lower extremity edema Hepatic encephalopathy (HCC) Diffuse abdominal pain IGG SUBCLASSES Routine 08/23/2019 Hepatic cirrhos is, 4:15 PM CDT unspecified hepatic cirrhosis type, unspecified whether ascites present (HCC) Bilateral lower extremity edema Hepatic encephalopathy (HCC) Diffuse abdominal pain CT ABDOMEN PELVIS W Routine 08/10/2019 Cirrhosis of liver CONTRAST 4:37 PM CDT without ascites, unspecified hepatic cirrhosis type (HCC) US ABDOMINAL LIMITED Routine 08/10/2019 Cirrhosis of liver 2:10 PM CDT without ascites, unspecified hepatic cirrhosis type (HCC) Bilateral lower extremity edema Other ascites GGT STAT 08/09/2019 10:38 AM CDT IGAM STAT 08/09/2019 10:38 AM CDT ESTIMATED GFR STAT 08/09/2019 10:38 AM CDT PARTIAL THROMBOPLASTIN STAT 08/09/2019 Cirrhos is of liver TIME (PTT) 10:38 AM CDT without ascites, unspecified hepatic cirrhosis type (HCC) Bilateral lower extremity edema Other ascites PROTHROMBIN TIME WITH INR STAT 08/09/2019 Cirr hosis of liver 10:38 AM CDT without ascites, unspecified hepatic cirrhosis type (HCC) Bilateral lower extremity edema Other ascites COMPREHENSIVE METABOLIC STAT 08/09/2019 Cirrho sis of liver PANEL 10:38 AM CDT without ascites, unspecified hepatic cirrhosis type (HCC) Bilateral lower extremity edema Other ascites HC COMPLETE BLD COUNT STAT 08/09/2019 Cirrhosi s of liver W/AUTO DIFF 10:38 AM CDT without ascites, unspecified hepatic cirrhosis type (HCC) Bilateral lower extremity edema Other ascites ESTIMATED GFR Routine 07/26/2019 2:04 PM CDT MAGNESIUM LEVEL Routine 07/26/2019 Hepatic failur e, 2:04 PM CDT unspecified without coma (HCC) Unspecified cirrhosis of liver (HCC) Abnormal results of liver function studies Localized edema Other fatigue Low back pain Other chronic pain Fatty (change of) liver, not elsewhere classified LIPID PANEL Routine 07/26/2019 Hepatic failure , 2:04 PM CDT unspecified without coma (HCC) Unspecified cirrhosis of liver (HCC) Abnormal results of liver function studies Localized edema Other fatigue Low back pain Other chronic pain Fatty (change of) liver, not elsewhere classified TOTAL IRON BINDING Routine 07/26/2019 Hepatic marin lure, CAPACITY 2:04 PM CDT unspecified without coma (HCC) Unspecified cirrhosis of liver (HCC) Abnormal results of liver function studies Localized edema Other fatigue Low back pain Other chronic pain Fatty (change of) liver, not elsewhere classified IMMUNOGLOBULIN M Routine 07/26/2019 Hepatic failu re, 2:04 PM CDT unspecified without coma (HCC) Unspecified cirrhosis of liver (HCC) Abnormal results of liver function studies Localized edema Other fatigue Low back pain Other chronic pain Fatty (change of) liver, not elsewhere classified IMMUNOGLOBULIN G Routine 07/26/2019 Hepatic failu re, 2:04 PM CDT unspecified without coma (HCC) Unspecified cirrhosis of liver (HCC) Abnormal results of liver function studies Localized edema Other fatigue Low back pain Other chronic pain Fatty (change of) liver, not elsewhere classified IMMUNOGLOBULIN A Routine 07/26/2019 Hepatic failu re, 2:04 PM CDT unspecified without coma (HCC) Unspecified cirrhosis of liver (HCC) Abnormal results of liver function studies Localized edema Other fatigue Low back pain Other chronic pain Fatty (change of) liver, not elsewhere classified PROTHROMBIN TIME WITH INR Routine 07/26/2019 Hepa tic failure, 2:04 PM CDT unspecified without coma (HCC) Unspecified cirrhosis of liver (HCC) Abnormal results of liver function studies Localized edema Other fatigue Low back pain Other chronic pain Fatty (change of) liver, not elsewhere classified GGT Routine 07/26/2019 Hepatic failure , 2:04 PM CDT unspecified without coma (HCC) Unspecified cirrhosis of liver (HCC) Abnormal results of liver function studies Localized edema Other fatigue Low back pain Other chronic pain Fatty (change of) liver, not elsewhere classified FERRITIN LEVEL Routine 07/26/2019 Hepatic failure , 2:04 PM CDT unspecified without coma (HCC) Unspecified cirrhosis of liver (HCC) Abnormal results of liver function studies Localized edema Other fatigue Low back pain Other chronic pain Fatty (change of) liver, not elsewhere classified COMPREHENSIVE METABOLIC Routine 07/26/2019 Hepati c failure, PANEL 2:04 PM CDT unspecified without coma (HCC) Unspecified cirrhosis of liver (HCC) Abnormal results of liver function studies Localized edema Other fatigue Low back pain Other chronic pain Fatty (change of) liver, not elsewhere classified HC COMPLETE BLD COUNT Routine 07/26/2019 Hepatic failure, W/AUTO DIFF 2:04 PM CDT unspecified without coma (HCC) Unspecified cirrhosis of liver (HCC) Abnormal results of liver function studies Localized edema Other fatigue Low back pain Other chronic pain Fatty (change of) liver, not elsewhere classified FL ESOPHAGRAM DOUBLE Routine 05/09/2019 Cough CONTRAST 12:[address] CHEST WO CONTRAST Routine 05/09/2019 Cough 11:25 AM CDT TTE COMPLETE, WO Routine 05/09/2019 Dyspnea, unsp ecified CONTRAST, W DOPPLER 10:56 AM CDT ([id number]) OR FL < 1 HOUR Routine 04/29/2019 12:27 PM [employer]ARM SERV[employer]SULTANT INJECTION, STEROID, 04/29/2019 Spinal stenosis, lumbar SPINE, LUMBAR, EPIDURAL, 12:12 PM [employer]ARM SERV[employer]SULTANT region with neurogenic SINGLE claudication Special Needs LARGE C-ARM POC GLUCOSE Routine 04/29/2019 10:45 AM [employer]ARM SERVICE CONSULTANT POC GLUCOSE Routine 04/29/2019 9:05 AM [employer]ARM SERVICE CONSULTANT US ABDOMEN COMPLETE Routine 04/22/2019 Cirrhosis of liver 11:15 AM [employer]ARM SERV[employer]SULTANT without ascites, unspecified hepatic cirrhosis type (HCC) HE (hepatic encephalopathy) (HCC) Abdominal pain, unspecified abdominal location Gastroesophageal reflux disease without esophagitis MAMMO BREAST SCREEN Routine 04/22/2019 Encounter for screening TOMOSYNTHESIS BILATERAL 11:03 AM [employer]ARM SERV[employer]ANT mammogram for malignant neoplasm of breast Breast cancer screening MAGNESIUM LEVEL Routine 04/14/2019 Mucositis 11:44 AM [employer]ARM SERV[employer]SULTANT Xerostomia VITAMIN B12 LEVEL Routine 04/14/2019 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) VITAMIN D 25 HYDROXY Routine 04/14/2019 Liver cir rhosis secondary LEVEL 11:44 AM FARM SERVICE CONSULTANT to PICHARDO ([facility]) URINALYSIS, COMPLETE, Routine 04/14/2019 Routine general medical WITH REFLEX TO CULTURE 11:44 AM [employer]ARM SERV[employer] CONSULTANT examination at a [facility] Essential hypertension THYROID STIMULATING Routine 04/14/2019 Acquired h ypothyroidism HORMONE 11:44 AM [employer]ARM SERV[employer]ANT T4, FREE Routine 04/14/2019 Acquired hypoth yroidism 11:44 AM [employer]SULTANT LIPID PANEL Routine 04/14/2019 Mixed hyperlipi demia 11:44 AM [employer]ARM SERV[employer]SULTANT COMPREHENSIVE METABOLIC Routine 04/14/2019 Routin e general medical PANEL 11:44 AM [employer]ANT [facility] CBC WITH PLATELET AND Routine 04/14/2019 Routine general medical DIFFERENTIAL 11:44 AM [employer] SERV[employer] CONSULTANT [facility] AL FUNDAL PHOTOGRAPHY Routine 04/14/2019 Type 2 d iabetes mellitus 11:31 AM [employer]ANT without complication, without long-term current use of insulin ([facility]) POC GLYCOSYLATED Routine 04/14/2019 Type 2 diabet es mellitus HEMOGLOBIN (HGB A1C) 11:24 AM FARM SERVICE CONSULTANT without complica tion, without long-term current use of insulin ([facility]) ECG 12-LEAD Routine 04/14/2019 Routine general medical 11:17 AM FARM SERVICE CONSULTANT examination at a [facility] Essential hypertension POC GLUCOSE Routine 04/11/2019 11:23 AM FARM SERVICE CONSULTANT OR [place] < 1 HOUR Routine 04/11/2019 11:11 AM FARM SERVICE CONSULTANT INJECTION, STEROID, 04/11/2019 Spinal stenosis, lumbar SPINE, LUMBAR, EPIDURAL, 10:47 AM [employer]ARM SERV[employer] CONSULTANT region with neurogenic SINGLE claudication Special Needs LARGE C-ARM POC GLUCOSE Routine 04/11/2019 10:21 AM FARM SERVICE CONSULTANT EOSINOPHIL COUNT ABSOLUTE Routine 03/31/2019 Coug h 3:42 PM [employer]ARM SERV[employer] CONSULTANT Dyspnea, unspecified Other abnormalities of breathing Gastro-esophageal reflux disease without esophagitis Obstructive sleep apnea (adult) (pediatric) Other specified health status Dietary counseling and surveillance Obesity, unspecified Immunization not carried out because of patient decision for unspecified reason ANTI-NEUTROPHILIC Routine 03/31/2019 Cough CYTOPLASMIC ABS PANEL 3:42 PM [employer]ARM SERV[employer] CONSULTANT Dyspnea, unspec ified Other abnormalities of breathing Gastro-esophageal reflux disease without esophagitis Obstructive sleep apnea (adult) (pediatric) Other specified health status Dietary counseling and surveillance Obesity, unspecified Immunization not carried out because of patient decision for unspecified reason ASPERGILLUS AB BY CF, Routine 03/31/2019 Cough SERUM 3:42 PM FARM SERVICE CONSULTANT Dyspnea, unspecifie d Other abnormalities of breathing Gastro-esophageal reflux disease without esophagitis Obstructive sleep apnea (adult) (pediatric) Other specified health status Dietary counseling and surveillance Obesity, unspecified Immunization not carried out because of patient decision for unspecified reason B NATRIURETIC PEPTIDE Routine 03/31/2019 Cough 3:42 PM FARM SERVICE CONSULTANT Dyspnea, unspecified Other abnormalities of breathing Gastro-esophageal reflux disease without esophagitis Obstructive sleep apnea (adult) (pediatric) Other specified health status Dietary counseling and surveillance Obesity, unspecified Immunization not carried out because of patient decision for unspecified reason INHALANTS, SW Routine 03/31/2019 Cough COMPREHENSIVE PANEL 2 3:42 PM FARM SERVICE CONSULTANT Dyspnea, unspec ified Other abnormalities of breathing Gastro-esophageal reflux disease without esophagitis Obstructive sleep apnea (adult) (pediatric) Other specified health status Dietary counseling and surveillance Obesity, unspecified Immunization not carried out because of patient decision for unspecified reason POC GLUCOSE Routine 03/21/2019 12:40 PM FARM SERVICE CONSULTANT OR [place] < 1 HOUR Routine 03/21/2019 12:10 PM FARM SERVICE CONSULTANT INJECTION, STEROID, 03/21/2019 Spinal stenosis, lumbar SPINE, LUMBAR, EPIDURAL, 11:54 AM [employer]ARM SERV[employer] CONSULTANT region with neurogenic SINGLE claudication Special Needs LARGE C-ARM POC GLUCOSE Routine 03/21/2019 9:53 AM FARM SERVICE CONSULTANT MRI LUMBAR SPINE W WO Routine 03/09/2019 Status p ost lumbar spine CONTRAST 1:35 PM FARM SERV[employer] CONSULTANT surgery for decompr ession of spinal cord ECG 12-LEAD STAT 01/30/2019 9:01 PM [employer]ARM SERVICE CONSULTANT ESTIMATED GFR Routine 01/30/2019 8:22 PM FARM SERVICE CONSULTANT B NATRIURETIC PEPTIDE Routine 01/30/2019 8:22 PM FARM SERVICE CONSULTANT TROPONIN Routine 01/30/2019 8:22 PM FARM SERVICE CONSULTANT COMPREHENSIVE METABOLIC Routine 01/30/2019 PANEL 8:22 PM FARM SERVICE CONSULTANT PROTHROMBIN TIME WITH INR Routine 01/30/2019 8:22 PM FARM SERVICE CONSULTANT HC COMPLETE BLD COUNT Routine 01/30/2019 W/AUTO DIFF 8:22 PM FARM SERVICE CONSULTANT XR CHEST 2 VW STAT 01/30/2019 7:37 PM [employer]ARM SERV[employer] CONSULTANT ECG ED PRELIMINARY Routine 01/30/2019 INTERPRETATION 6:43 PM [employer]SULTANT XR HIP 2-3 VIEWS LEFT Routine 01/11/2019 Pain of left hip joint 11:18 AM [employer]ARM SERV[employer]SULTANT after 01/07/2019 Results * Urinalysis screen and microscopy, with reflex to culture (11/04/2019 2:18 PM CDT) Specimen site Clean catch [facility] Color, UA Yellow [facility] Appearance, UA Slightly-Cloudy [facility] Specific 1.004 1.001 - 1.035 [place] gravity, UA [facility] pH, UA 6.0 5.0 - 8.5 [facility] [facility] Protein, UA Negative Negative [facility] Glucose, UA Negative Negative [facility] Ketones, UA Negative Negative [facility] Bilirubin, UA Negative Negative [facility] Blood, UA Negative Negative [facility] Nitrite, UA Negative Negative [facility] Urobilinogen, Negative <2.0 [place] UA [facility] Leukocyte Negative Negative [place] esterase, UA [facility] Epithelial Few Few /HPF [place] cells, UA [facility] WBC, UA None seen 0 - 4 /HPF [facility] RBC, UA 0-5 0 - 5 /HPF [facility] Bacteria, UA None seen None seen [facility] Yeast, UA None seen [facility] Yeast with None seen [place] [facility] Specimen Urine Performing Organization Address City/[facility] P marco an[place]io Number [place] [address] PATHOLOGY AND GENOMIC MEDICINE [address] * Estimated GFR (11/04/2019 2:18 PM CDT) Only the most recent of 14 results within the time period is included. Pathologist [facility] Estimated GFR 66 mL/min/1.73 m2 [place] Comment: [facility] Interpretation G1 >=90 Normal or high G2 60-89 Mildly decreased G3a 45-59 Mildly to moderately decreased G3b 30-44 Moderately to severely decreased G4 15-29 Severely decreased G5 <15 Kidney failure The eGFR was calculated using the Chronic Kidney Disease Epidemiology Collaboration (CKD-EPI) equation. Interpretation is based on recommendations of the National Kidney Foundation-Kidney Disease Outcomes Quality Initiative (NKF-KDOQI) published in 2014. Specimen Performing Organization Address City/[facility] P marco antonio Number [address] [place] [address] PATHOLOGY AND GENOMIC MEDICINE [address] * CBC with platelet and differential (11/04/2019 2:18 PM CDT) Only the most recent of 10 results within the time period is included. WBC 4.06 (L) 4.50 - 11.00 k/uL [facility] RBC 3.71 (L) 4.20 - 5.50 m/uL [facility] HGB 9.9 (L) 12.0 - 16.0 g/dL [facility] HCT 31.3 (L) 37.0 - 47.0 % [facility] MCV 84.4 82.0 - 100.0 fL [facility] MCH 26.7 (L) 27.0 - 34.0 pg [facility] MCHC 31.6 31.0 - 37.0 g/dL [facility] RDW - SD 42.8 37.0 - 55.0 fL [facility] MPV 10.0 8.8 - 13.2 fL [facility] Platelet count 129 (L) 150 - 400 k/uL [facility] Nucleated RBC 0.00 /100 WBC [facility] Neutrophils 63.1 39.0 - 69.0 % [facility] Lymphocytes 26.6 25.0 - 45.0 % [facility] Monocytes 6.9 0.0 - 10.0 % [facility] Eosinophils 3.0 0.0 - 5.0 % [facility] Basophils 0.2 0.0 - 1.0 % [facility] Specimen Blood Performing Organization Address City/[facility] P marco antonio Number [address] [place] [address] PATHOLOGY AND GENOMIC MEDICINE [address] * Urine culture (11/04/2019 2:18 PM CDT) Urine culture SEE COMMENTComment: [place] Bacteriuria screen negative. [facility] Specimen Urine Performing Organization Address City/[facility] P marco antonio Number [address] [place] [address] PATHOLOGY AND GENOMIC MEDICINE [address] * Thyroid stimulating hormone (11/04/2019 2:18 PM CDT) Only the most recent of 2 results within the time period is included. TSH 6.05 (H) 0.27 - 4.20 uIU/mL [facility] Specimen Blood Performing Organization Address City/[facility]/ZIP Code P marco antonio Number [address] [place] [address] PATHOLOGY AND GENOMIC MEDICINE [address] * T4, free (11/04/2019 2:18 PM CDT) Only the most recent of 2 results within the time period is included. Pathologist [facility] T4, free 0.98 0.90 - 1.70 ng/dL [facility] Specimen Blood Performing Organization Address City/[facility]/ZIP [facility] [place] [place] P marco antonio Number [facility] [place] [address] [address] [place] [address] PATHOLOGY AND GENOMIC MEDICINE [place] [address] [address] * Hemoglobin A1c (11/04/2019 2:18 PM CDT) [facility] Hemoglobin A1C 7.0 (H) 4.0 - 5.6 % [place] Comment: [facility] HbA1c cutoffs for diagnosing [facility] diabetes: 4.0% - 5.6% = normal 5.7% - 6.4% = increased risk for diabetes (prediabetes)9 >=6.5% = diabetes9 Goals for glycemic control (ADA 2016) < 7.0% Target for non adults with diabetes. More or less stringent targets may be appropriate for individual patients. <7.5% Target for Children and adolescents with type 1 diabetes. Specimen Blood Performing Organization Address City/[facility] P marco antonio Number [place] [address] [address] [place] [address] PATHOLOGY AND GENOMIC MEDICINE [place] [address] [address] * Comprehensive metabolic panel (11/04/2019 2:18 PM CDT) Only the most recent of 12 results within the time period is included. [facility] Sodium 137 135 - 148 mEq/L [facility] Potassium 5.1 (H) 3.5 - 5.0 mEq/L [facility] Chloride 101 98 - 112 mEq/L [facility] CO2 26 24 - 31 mEq/L [facility] Anion gap 10@ANIO 7 - 15 mEq/L [facility] BUN 13 8 - 23 mg/dL [facility] Creatinine 0.90 0.50 - 0.90 mg/dL [facility] Glucose 170 (H) 65 - 99 mg/dL [facility] Calcium 9.4 8.8 - 10.2 mg/dL [facility] Protein 7.5 6.3 - 8.3 g/dL [place] Comment: [facility] Sublimity 4.6-7.0 g/dL 1 week 4.4-7.6 g/dL 7 months-1year 5.1-7.3 g/dL 1-2 years 5.6-7.5 g/dL >3 years 6.0-8.0 g/dL 18-150 6.3-8.3 g/dL Albumin 4.3 3.5 - 5.0 g/dL [facility] A/G ratio 1.3 0.7 - 3.8 [facility] Alkaline 143 (H) 35 - 104 U/L [place] phosphatase [facility] AST 49 (H) 10 - 35 U/L [facility] ALT 53 (H) 5 - 50 U/L [facility] Total bilirubin 0.2 0.0 - 1.2 mg/dL [facility] Specimen Blood Performing Organization Address City/[facility] P marco antonio Number [address] [place] [address] PATHOLOGY AND GENOMIC MEDICINE [address] * Prothrombin time with INR (10/18/2019 1:45 PM CDT) Only the most recent of 7 results within the time period is included. Pathologist [facility] Prothrombin 12.7 11.5 - 14.5 sec [facility] INR 1.0 [place] Comment: [facility] The International Normalized [facility] Ratio (INR) is a therapeutic monitoring tool for patients who are stable on oral anticoagulant therapy. An INR of 2.0-3.0 is suggested for deep vein thrombosis/pulmonary embolism. Specimen Blood Performing Organization Address City/[facility] P marco antonio Number [address] [place] [address] PATHOLOGY AND GENOMIC MEDICINE [address] * Immunoglobulin A (10/18/2019 1:45 PM CDT) Only the most recent of 2 results within the time period is included. IgA 337 70 - 400 mg/dL [facility] Specimen Blood Performing Organization Address City/[facility]/ZIP Code P marco antonio Number [facility] DEPARTMENT OF [address] [place] [address] PATHOLOGY AND GENOMIC MEDICINE [address] * Immunoglobulin M (10/18/2019 1:45 PM CDT) Only the most recent of 2 results within the time period is included. IgM 127 33 - 255 mg/dL [facility] Specimen Blood Performing Organization Address City/[facility] P marco antonio Number [facility] [place] [address] PATHOLOGY AND GENOMIC MEDICINE [address] * Immunoglobulin G (10/18/2019 1:45 PM CDT) Only the most recent of 2 results within the time period is included. IgG 1,241 700 - 1,600 mg/dL [facility] Specimen Blood Performing Organization Address City/[facility] P marco antonio Number [facility] [place] [address] PATHOLOGY AND GENOMIC MEDICINE [address] * Renal function panel (10/18/2019 1:45 PM CDT) Sodium 136 135 - 148 mEq/L [facility] Potassium 5.0 3.5 - 5.0 mEq/L [facility] Chloride 100 98 - 112 mEq/L [facility] CO2 27 24 - 31 mEq/L [facility] Anion gap 9@ANIO 7 - 15 mEq/L [facility] BUN 12 8 - 23 mg/dL [facility] Creatinine 0.80 0.50 - 0.90 mg/dL [facility] Glucose 220 (H) 65 - 99 mg/dL [facility] Calcium 10.1 8.8 - 10.2 mg/dL [facility] Albumin 4.6 3.5 - 5.0 g/dL [facility] Phosphorus 3.2 2.4 - 4.5 mg/dL [facility] Specimen Blood Performing Organization Address City/[facility]/ZIP Code P marco antonio Number [facility] [place] [id number] [place] [address] [address] [place] [address] PATHOLOGY AND GENOMIC MEDICINE [facility] [address] [address] * Phosphorus level (10/05/2019 2:03 PM CDT) Only the most recent of 2 results within the time period is included. Pathologist [facility] Phosphorus 3.4 2.4 - 4.5 mg/dL [facility] Specimen Blood Performing Organization Address [facility] P marco antonio Number [facility] DEPARTMENT OF [facility] [facility] [place] [address] PATHOLOGY AND GEN[facility]IC MEDICINE [facility] [address] [address] * Magnesium level (10/05/2019 2:03 PM CDT) Only the most recent of 4 results within the time period is included. [facility] Magnesium 1.9 1.6 - 2.4 mg/dL [facility] Specimen Blood Performing Organization Address [facility] P marco antonio Number [facility] DEPARTMENT OF [facility] [facility] [place] [address] PATHOLOGY AND GENOMIC MEDICINE [place] [address] [address] * POC glucose (09/18/2019 5:46 AM CDT) Only the most recent of 19 results within the time period is included. [facility] POC glucose 157 (H) 65 - 99 mg/dL [place] Comment: DOMINICK BETANCOURT Sports Official Name: [facility] Nuha Device ID: [id number] Specimen Blood Performing Organization Address City/[facility] P marco antonio Number [facility] DEPARTMENT OF [facility] J[facility] Gar[facility] [place] [address] PATHOLOGY AND GENOMIC MEDICINE [place] [address] [address] * Basic metabolic panel (09/17/2019 3:01 PM CDT) Only the most recent of 2 results within the time period is included. Pathologist [facility] Sodium 131 (L) 135 - 148 mEq/L [facility] Potassium 4.5 3.5 - 5.0 mEq/L [facility] Chloride 97 (L) 98 - 112 mEq/L [facility] CO2 28 24 - 31 mEq/L [facility] Anion gap 6@ANIO (L) 7 - 15 mEq/L [facility] BUN 14 8 - 23 mg/dL [facility] Creatinine 0.80 0.50 - 0.90 mg/dL [facility] Glucose 146 (H) 65 - 99 mg/dL [facility] Calcium 9.5 8.8 - 10.2 mg/dL [facility] Specimen Blood Performing Organization Address City/[facility]/ZIP Code P marco an[place] Number [facility] DEPARTMENT OF [address] [place] [address] [place] [address] PATHOLOGY AND GENOMIC MEDICINE [address] * ECG 12 lead (09/16/2019 9:06 AM CDT) Only the most recent of 3 results within the time period is included. Ventricular 81 [facility] rate Atrial rate 81 [facility] AL interval 160 [facility] QRSD interval 94 [facility] QT interval 368 [facility] QTC interval 427 [facility] P axis 1 73 [facility] QRS axis 1 54 [facility] T wave axis 83 [facility] EKG impression Normal sinus rhythm-Normal [facility] ECG-In automated comparison with ECG of -APR-2019 11:17,-No significant change was found- Specimen Narrative Performed At This result has an attachment that is n ot available. Performing Organization Address City/[facility]/ZIP Code P marco an[place]io Number [facility] [address] [place] [address] * Uric acid level (09/16/2019 5:42 AM CDT) Uric acid 5.9 (H) 2.4 - 5.7 mg/dL [facility] Specimen Blood Performing Organization Address City/State/ZIP Code P marco antonio Number [address] [place] [address] PATHOLOGY AND GENOMIC MEDICINE [address] * Cortisol level, random (09/16/2019 5:42 AM CDT) Cortisol, 3 ug/dL [place] random Comment: [facility] Reference Ranges are not HOSPITAL established for non-timed Cortisol levels. Reference Range for Timed Cortisol: 6 - 10 AM 6 - 18 ug/dl 4 - 8 PM 3 - 11 ug/dl Specimen Blood Performing Organization Address City/[facility] Code P marco antonio Number [facility] DEPARTMENT OF [address] [place] [address] PATHOLOGY AND GENOMIC MEDICINE [address] * COVID-19 qualitative PCR (09/15/2019 9:13 PM CDT) Pathologist [facility] Interpretation Negative results do not AR[place] preclude 2019-nCoV infection [facility] and should not be used as the HOSPITAL sole basis for treatment or other patient management decisions. Negative results must be combined with clinical observations, patient history, and epidemiological information. COVID-19 Not-Detected Not-Detected [place] qualitative PCR [facility] result HOSPITAL COVID-19 See link below for PDF Lab [place] qualitative PCR ReportComment: Case Number: [facility] [id number] HOSPITAL Specimen Nasopharyngeal swab Performing Organization Address City/[facility] P marco antonio Number [facility] [place] [address] PATHOLOGY AND GENOMIC MEDICINE [address] * Urinalysis, automated with microscopy (09/15/2019 12:33 PM CDT) Color, UA Yellow [facility] Appearance, UA Slightly-Cloudy [facility] Specific 1.008 1.001 - 1.035 [place] gravity, UA [facility] pH, UA 6.0 5.0 - 8.5 [facility] Protein, UA Negative Negative [facility] Glucose, UA Negative Negative [facility] Ketones, UA Negative Negative [facility] Bilirubin, UA Negative Negative [facility] Blood, UA Negative Negative [facility] Nitrite, UA Negative Negative [facility] Urobilinogen, Negative <2.0 [facility] Leukocyte Negative Negative [place] esterase, UA [facility] Epithelial Many Few /HPF [place] cells, UA [facility] Round Few 0 - 1 /HPF [place] epithelial [facility] CLEAR cells, [facility] WBC, UA 0-5 0 - 4 /HPF [facility] RBC, UA 0-5 0 - 5 /HPF [facility] Bacteria, UA Few None seen [facility] Hyaline casts, 3-5 /LPF [facility] Yeast, UA None seen [facility] Yeast with None seen [place] pseudohyphae, [facility] Specimen Urine Performing Organization Address [facility]/ZIP Code P [place] [address] [place] [place], [place] [address] PATHOLOGY AND GENOMIC MEDICINE [facility] [address] [place] [address] [facility] * IgG subclasses (09/12/2019 4:04 PM CDT) Only the most recent of 2 results within the time period is included. Immunoglobulin 577 240 - 1,118 mg/dL [facility] REF [facility] G subclass 1 Comment: REFERENCE INTERVAL: Immunoglobulin G Subclass 1 Access complete set of age- and/or gender-specific reference intervals for this test in the [employer] [facility] Test Directory ([employer]ble). Immunoglobulin 326 124 - 549 mg/dL [facility] G subclass 2 Comment: REFERENCE INTERVAL: Immunoglobulin G Subclass 2 Access complete set of age- and/or gender-specific reference intervals for this test in the [employer] [facility] Test Directory ([employer]). Immunoglobulin 75 21 - 134 mg/dL [facility] REF [facility] G subclass 3 Comment: REFERENCE INTERVAL: Immunoglobulin G Subclass 3 Access complete set of age- and/or gender-specific reference intervals for this test in the [employer] [facility] Test Directory ([facility]). Immunoglobulin 3 1 - 123 mg/dL [facility] RE[facility] G subclass 4 Comment: The total IgG (mg/dL) can be derived by the sum of the subclasses IgG1, IgG2, IgG3 and IgG4 values. However, a confirmatory and more precise total IgG is available by the nephelometric method of total IgG (Test # [id number]). REFERENCE INTERVAL: Immunoglobulin G Subclass 4 Access complete set of age- and/or gender-specific reference intervals for this test in the [employer] [facility] Test Directory (Reble). Performed By: [facility] [address] [place] [address] Manager Coding: Rigo Milton MD, MS Specimen Serum Performing Organization Address City/State/ZIP Code P marco antonio Number [facility] [address] [place] [address] [facility] [address] [place] [address] * CT Abdomen Pelvis W Contrast (08/10/2019 4:37 PM CDT) Specimen Narrative Performed At EXAMINATION: CT ABDOMEN PELVIS W CONTRAST GERARD MARI CLINICAL HISTORY: K74.60 Unspecified cirrhosis of liver, Abd distension TECHNIQUE: Multiple axial images of the abdomen and pelvis were obtained following intravenous administration of iodinated contrast. Sagittal and coronal computerized reformatted images were al so obtained. All CT images were acquired using low-dose technique with automated exposure contr ol. COMPARISON: April 20, 2018 FINDINGS: Abdomen: 1.Cirrhotic liver. The spleen is border line in size measuring 12 to 13 cm. Low-attenuation lesion in the right hep atic lobe measures 8 mm best demonstrated on image 47 of series 2 in segment 5. S table celiac lymph nodes measuring up to 11 x 8 mm. 2.The portal vein, SMV, and splenic vei n are patent. Recanalized parent vein. The abdominal aorta is of normal calibe r. 3.The pancreas, adrenal glands and kidn eys are normal. No hydronephrosis. 4.Cholecystectomy. 5.Large and small bowel loops are of no rmal caliber. The appendix is normal. Pelvis: 1.The bladder is normal. 2.No pelvic lymphadenopathy. 3.There are degenerative changes involv ing lower lumbar spine. 4.No ascites. IMPRESSION: 1.Cirrhosis. 8mm vaguely defined low-at tenuation lesion in the right hepatic lobe. Correlation with MRI findings may be of benefit. 2.No ascites. [facility] Procedure Note Interface, Radiology Results Incoming - 08/10/2019 4:50 PM CDT EXAMINATION: CT ABDOMEN PELVIS W CONTRAST CLINICAL HISTORY: K74.60 Unspecified cirrhosis of liver, Abd distension TECHNIQUE: Multiple axial images of the abdomen and pelvis were obtained following intravenous administration of iodinated contrast. Sagittal and coronal computerized reformatted images were also obtained. All CT images were acquired using low-dose technique with automated exposure control. COMPARISON: April 20, 2018 FINDINGS: Abdomen: 1.Cirrhotic liver. The spleen is borderl ine in size measuring 12 to 13 cm. Low- attenuation lesion in the right hepatic lobe measures 8 mm best demonstrated on image 47 of series 2 in segment 5. Stable celiac lymph nodes measuring up to 11 x 8 mm. 2.The portal vein, SMV, and splenic vein are patent. Recanalized parent vein. The abdominal aorta is of normal caliber. 3.The pancreas, adrenal glands and kidne ys are normal. No hydronephrosis. 4.Cholecystectomy. 5.Large and small bowel loops are of nor mal caliber. The appendix is normal. Pelvis: 1.The bladder is normal. 2.No pelvic lymphadenopathy. 3.There are degenerative changes involvi ng lower lumbar spine. 4.No ascites. IMPRESSION: 1.Cirrhosis. 8mm vaguely defined low-att enuation lesion in the right hepatic lobe. Correlation with MRI findings may be of benefit. 2.No ascites. [facility] Performing Organization Address [facility]/ZIP Code P [place]co an[place] Number [facility] [address] [place] [address] * US Abdominal Limited (08/10/2019 2:10 PM CDT) Specimen Narrative Performed At EXAMINATION: [place] ABDOMINAL [facility] CLINICAL HISTORY: K74.60 Unspecified cirrhosis of liver, R60.0 Localized edema, ASCITES COMPARISON: None. TECHNIQUE: Limited abdominal ultrasou nd was performed to evaluate for ascites. IMPRESSION: No ascites identified in any of the 4 q uadrants. Thus, a paracentesis was not performed. [id number]-[id number] Procedure Note Interface, Radiology Results Incoming - 08/10/2019 4:07 PM CDT EXAMINATION: US ABDOMINAL LIMITED CLINICAL HISTORY: K74.60 Unspecified cirrhosis of liver, R60.0 Localized edema, ASCITES COMPARISON: None. TECHNIQUE: Limited abdominal ultrasound was performed to evaluate for ascites. IMPRESSION: No ascites identified in any of the 4 quadrants. Thus, a paracentesis was not performed. [facility]-[id number] Performing Organization Address [facility]/ZIP Code P marco an[place]io Number [facility] [address] [place] [address] * IGAM (08/09/2019 10:38 AM CDT) IgG 1,126 700 - 1,600 mg/dL [facility] IgA 349 70 - 400 mg/dL [facility] IgM 115 33 - 255 mg/dL [facility] Specimen Performing Organization Address [facility]/ZIP Code P marco antonio Number [facility] DEPARTMENT OF [address] [place] [address] PATHOLOGY AND GENOMIC MEDICINE [address] * Partial thromboplastin time, activated (08/09/2019 10:38 AM CDT) PTT 32.0 23.0 - 36.0 sec [place] Comment: [facility] PTT therapeutic range for HOSPITAL unfractionated heparin is 61.0-112.0 seconds which corresponds to Anti-Xa 0.3-0.7 U/ml. Specimen Blood Performing Organization Address City/[facility] Code P marco an[place]io Number [facility] [place] [address] PATHOLOGY AND [facility] MEDICINE [address] * GGT (08/09/2019 10:38 AM CDT) Only the most recent of 2 results within the time period is included. GGT 35 0 - 39 U/L [facility] Specimen Performing Organization Address City/[facility] P marco antonio Number [facility] [place] [address] PATHOLOGY AND [facility] MEDICINE [address] * Total iron binding capacity (07/26/2019 2:04 PM CDT) Iron level 57 37 - 145 ug/dL [facility] Iron binding 346 200 - 400 ug/dL [facility] % Saturation 16.5 15.0 - 38.0 % [facility] Specimen Blood Performing Organization Address City/[facility] P marco antonio Number [facility] [address] [place] [phone] 58 PATHOLOGY AND GENOMIC MEDICINE [address] [place] [phone] [facility] * Ferritin level (07/26/2019 2:04 PM CDT) Ferritin level 44 13 - 150 ng/mL [facility] Specimen Blood Performing Organization Address City/[facility] [place] [address] PATHOLOGY AND GENOMIC MEDICINE [address] * Lipid panel (07/26/2019 2:04 PM CDT) Only the most recent of 2 results within the time period is included. Cholesterol 157 <200 mg/dL [facility] Triglycerides 108 (A) <150 mg/dL [facility] HDL cholesterol 48 >40 mg/dL [facility] LDL cholesterol 95Comment: Result obtained by <100 mg/dL [place] direct LDL measurement [facility] Lipid [facility] Comment: [facility] Total Cholesterol (mg/dL) [facility] <200 Desirable 200-239 Borderline-high >=240 High Triglycerides (mg/dL) <150 Normal 150-199 Borderline-high 200-499 High >=500 Very high HDL Cholesterol (mg/dL) <40 Low (male) <40 Low (female) LDL Cholesterol (mg/dL) <100 Optimal 100-129 Near or above optimal 130-159 Borderline-high 160-189 High >=190 Very high Risk Catergories that modify LDL goals. Risk Catergories LDL goal (mg/dL) CHD and CHD risk equivalent <100 (10-year risk >20%) Multiple (2+) risk factors <130 (10-year risk =<20%) 0-1 risk factors <160 (<10-year risk) Defining levels of lipids in metabolic syndrome Triglycerides >=150 mg/dL HDL Cholesterol Men <40 mg/dL Women <40 mg/dL Non-HDL cholesterol is a second target for therapy in persons with high triglycerides (>=200 mg/dL) Specimen Blood Performing Organization Address City/State/ZIP Code P [place] [address] [place], [place] [address] PATHOLOGY AND GENOMIC MEDICINE [facility] [address] [place] [address] [facility] * FL Esophagram Double Contrast (05/09/2019 12:43 PM CDT) Specimen Narrative Performed At EXAMINATION: [place] ESOPHAGRAM DOUBLE CONTRAST RADI ANT CLINICAL HISTORY: R05 Cough, CHRONIC COUGH COMPARISON: None. Fluoroscopy time: 1 min. 14 image s obtained. TECHNIQUE: Barium and effervescent cr ystals administered by mouth. Patient imaged in the upright and prone GI posi tions. FINDINGS: Mild impairment of the primary wave wit h a few intermittent tertiary contractions observed. Esophagus demons trates no mass or stricture. No hiatal hernia or gastroesophageal reflux obser hardy. IMPRESSION: Presbyesophagus, otherwise unremarkable . [id number] Procedure Note Hm Interface, Radiology Results Incoming - 05/09/2019 1:11 PM CDT EXAMINATION: [place] ESOPHAGRAM DOUBLE CONTRAST CLINICAL HISTORY: R05 Cough, CHRONIC COUGH COMPARISON: None. Fluoroscopy time: 1 min. 14 images obtained. TECHNIQUE: Barium and effervescent crystals administered by mouth. Patient imaged in the upright and prone GI positions. FINDINGS: Mild impairment of the primary wave with a few intermittent tertiary contractions observed. Esophagus demonstrates no mass or stricture. No hiatal hernia or gastroesophageal reflux observed. IMPRESSION: Presbyesophagus, otherwise unremarkable. [facility]-[id number] Performing Organization Address City/State/ZIP Code P marco antonio Number [facility] [address] [place] [address] * CT Chest Wo Contrast (05/09/2019 11:25 AM CDT) Specimen Narrative Performed At EXAMINATION: CT CHEST WO CONTRAST [facility] CLINICAL HISTORY: 69 years Female R05 C ough, CHRONIC COUGH TECHNIQUE: Multiple axial images of t he chest were obtained without intravenous contrast. Sagittal and cadence nal computerized reformatted images were also obtained. CT imaging was performed with iterative reconstruction techniques and/or automated exposure control to reduce radiation do se. COMPARISON: To a previous examination from 9 IMPRESSION: Lungs and airways: No acute airspace di sease or suspicious pulmonary nodules. Pleura: No pleural effusion or pneumoth orax. Mediastinum and lymph nodes: No lymphad enopathy. Cardiovascular: The heart size is jose l. No pericardial effusion. The thoracic aorta is normal in caliber. Upper abdomen: No suspicious abnormalit ies. Bones: No suspicious osseous lesions. Other: None. SUMMARY: 1.Negative examination [facility]-[id number] Procedure Note Interface, Radiology Results Incoming - 05/09/2019 11:32 AM CDT EXAMINATION: CT CHEST WO CONTRAST CLINICAL HISTORY: 69 years Female R05 Cough, CHRONIC COUGH TECHNIQUE: Multiple axial images of the chest were obtained without intravenous contrast. Sagittal and coronal computerized reformatted images were also obtained. CT imaging was performed with iterative reconstruction techniques and/or automated exposure control to reduce radiation dose. COMPARISON: To a previous examination from 04/20/2018 IMPRESSION: Lungs and airways: No acute airspace disease or suspicious pulmonary nodules. Pleura: No pleural effusion or pneumothorax. Mediastinum and lymph nodes: No lymphadenopathy. Cardiovascular: The heart size is normal. No pericardial effusion. The thoracic aorta is normal in caliber. Upper abdomen: No suspicious abnormalities. Bones: No suspicious osseous lesions. Other: None. SUMMARY: 1.Negative examination [facility]-[id number] Performing Organization Address City/State/ZIP Code P marco antonio Number [facility] [address] [facility] [place] [address] * Transthoracic Echocardiogram Complete, (w Contrast, Strain and 3D if needed) (05/09/2019 10:56 AM CDT) Specimen Narrative Performed At [facility] Echo cardiography Report [id number] [facility], [place] [address] Pat.Name: JENNIFER MARTIN .ID: [id number] St.Date: 05/09/2019 Refer.MD: JACOB MCCLELLAND MD Exam Time: 9:01:00 AM Study Type:Routine Echo Height: 65in Weight: 195lb BSA: 1.96 m2 Age: 12 1950,69Y Sex: FEMALE BP: 114/55 HR: 83 bpm Sonogrphr: Liseth Church, BS, RDCS Pat. Stat.:Outpatient Room: [facility] 16 [facility] Study Status:Final Echo Event ID:[id number] Order ID: [id number] Reason for Study:DYSPNEA AND RESPIRATOR Y ABNORMALITIES Procedures: 2D Echo, Colorflow Doppler SUMMARY: LV EF is hyperdynamic. RV systolic function is normal. Normal diastolic function and LV fillin g pressures. Estimated PA systolic pressure is 25 mm Hg, assuming a mean RAP of 5 mmHg. FINDINGS: LV: LV size is normal. LV EF i s hyperdynamic. Overall wall motion is normal. Estim ated EF is >70%. Septal motion is paradoxical. RV: RV size is normal. RV syst olic function is normal. LA: LA size is normal. RA: RA size is normal. AO: Aortic root diameter is no rmal. DAVIN: No pericardial effusion. AV: No structural AV abnormali ties noted. MV: No structural MV abnormali ties noted. PV: No structural PV abnormali ties noted. TV: No structural TV abnormali ties noted. A trace of tricuspid regurgitation Valdes: Normal diastolic function a nd LV filling pressures. Other: Estimated PA systolic press ure is 25 mmHg, assuming a mean RAP of 5 mmHg. MEASUREMENTS: 2D Parasternal Long [place] Ao An 2.6 cm LVPWd 1 cm Ao Rtd 3.5 cm Index 1.8 cm/m2 LA Ds 4 cm IVSd 0.83 cm RWT 0.42 LVIDd 4.8 cm Index 2.5 cm/m2 LV Mass 156 g (87-12 9) LVIDs 2.3 cm LVM Index 79 g/m LV%fs 52 % LVOT 2.3 cm LA Sng Plane LA Area 15 cm (8.8-2 3.4) LA Vol 39 ml Index 20 ml/m2 LA LngAx 4.8 cm RA Sng Plane RA Vol 18 ml Index 9.1 ml/m2 RA LngAx 4.3 cm RA Area 9.3 cm (8.3-1 9.5) LVOT LVOT Area 4.3 cm DOPPLER LVOT Stroke Vol LVOT TVI 21 cm HR 80 bpm LVOT LVOT SV 91 ml LVOT CO 7.3 l/min SVi 46 ml/m LVOT CI 3.7 l/m/m MMODE Tricuspid Valve TAPSE 2.4 cm Signed 05/09/2019 02:44 PM Merrick Levin M.D. Procedure Note Interface, Radiology Results In - 05/09/2019 2:44 PM CDT Echocardiography Report [id number] [address] Pat.Name: JENNIFER MARTIN.ID: [id number] .Date: 05/09/2019 Refer.MD: JACOB MCCLELLAND MD Exam Time: 9:01:00 AM Study Type:Routine Echo Height: 65in Weight: 195lb BSA: 1.96 m2 Age: 12 1950,69Y Sex: FEMALE BP: 114/55 HR: 83 bpm Sonogrphr: Liseth Church, PAULO, RDCS Pat. Stat.:Outpatient Room: [address] Study Status:Final Echo Event ID:[id number] Order ID: [id number] Reason for Study:DYSPNEA AND RESPIRATORY ABNORMALITIES Procedures: 2D Echo, Colorflow Doppler SUMMARY: LV EF is hyperdynamic. RV systolic function is normal. Normal diastolic function and LV filling pressures. Estimated PA systolic pressure is 25 mmHg, assuming a mean RAP of 5 mmHg. FINDINGS: LV: LV size is normal. LV EF is hyperdynamic. Overall wall motion is normal. Estimated EF is >70%. Septal motion is paradoxical. RV: RV size is normal. RV systolic function is normal. LA: LA size is normal. RA: RA size is normal. AO: Aortic root diameter is normal. DAVIN: No pericardial effusion. AV: No structural AV abnormalities noted. MV: No structural MV abnormalities noted. PV: No structural PV abnormalities noted. TV: No structural TV abnormalities noted. A trace of tricuspid regurgitation Valdes: Normal diastolic function and LV filling pressures. Other: Estimated PA systolic pressure is 25 mmHg, assuming a mean RAP of 5 mmHg. MEASUREMENTS: 2D Parasternal Long [place] Ao An 2.6 cm LVPWd 1 cm Ao Rtd 3.5 cm Index 1.8 cm/m2 LA Ds 4 cm IVSd 0.83 cm RWT 0.42 LVIDd 4.8 cm Index 2.5 cm/m2 LV Mass 156 g (87-129) LVIDs 2.3 cm LVM Index 79 g/m LV%fs 52 % LVOT 2.3 cm LA Sng Plane LA Area 15 cm (8.8-23.4) LA Vol 39 ml Index 20 ml/m2 LA LngAx 4.8 cm RA Sng Plane RA Vol 18 ml Index 9.1 ml/m2 RA LngAx 4.3 cm RA Area 9.3 cm (8.3-19.5) LVOT LVOT Area 4.3 cm DOPPLER LVOT Stroke Vol LVOT TVI 21 cm HR 80 bpm LVOT LVOT SV 91 ml LVOT CO 7.3 l/min SVi 46 ml/m LVOT CI 3.7 l/m/m MMODE Tricuspid Valve TAPSE 2.4 cm Signed 05/09/2019 02:44 PM Merrick Levin M.D. Performing Organization Address City/State/ZIP Code [facility] Number [facility] [address] [place] [address] * OR FL < 1 Hour (04/29/2019 12:27 PM FARM SERVICE CONSULTANT) Only the most recent of 3 results within the time period is included. Specimen Narrative Performed At EXAMINATION: OR FL < 1 HOUR [facility] C-arm fluoroscopy was requested in OR. [id number] OR ROOM: 2 PROCEDURE: Caudal epidural steroid inje ction START TIME: 1200 END TIME: 1225 FLUORO TIME: 12 SECS DOSAGE: 10.48 mGy TECH: TORY IMPRESSION: Separate operative report will be issue d by the physician performing the procedure. [id number] Procedure Note Interface, Radiology Results Incoming - 05/02/2019 7:08 PM FARM SERVICE CONSULTANT EXAMINATION: OR FL < 1 HOUR C-arm fluoroscopy was requested in OR. [id number] OR ROOM: 2 PROCEDURE: Caudal epidural steroid injection START TIME: 1200 END TIME: 1225 FLUORO TIME: 12 SECS DOSAGE: 10.48 mGy TECH: TORY IMPRESSION: Separate operative report will be issued by the physician performing the procedure. [id number] Performing Organization Address City/State/ZIP Code P marco an[place]io Number [facility] [address] [place] [address] * US Abdomen Complete (04/22/2019 11:15 AM FARM SERVICE CONSULTANT) Specimen Narrative Performed At EXAM: US ABDOMEN COMPLETE [facility] CLINICAL DATA: K74.60 Unspecified cir rhosis of liver, K72.90 Hepatic failure unspecified without coma, Cirrhosis o r Fatty Liver COMPARISON: None. FINDINGS: A complete abdominal ultrasound was per formed. LIVER: The liver is cirrhotic. No focal mass present. No intrahepatic biliary dilation. GALBLADDER/CBD: Prior cholecystectomy . The common bile duct is normal in diameter at 6 mm PORTAL VEIN: .The main portal vein is p atent with hepatopedal flow. RETROPERITONEUM: The visualized pancr eas, abdominal aorta, and IVC are unremarkable SPLEEN: The spleen is normal. KIDNEYS: The kidneys are normal in si ze and echogenicity without stones or hydronephrosis. A dromedary hump presen t in the left kidney. OTHER: There is no ascites. There is no pleural effusion. IMPRESSION: Cirrhosis without the liver mass. No acute sonographic abnormality. [id number] Procedure Note Interface, Radiology Results Incoming - 04/22/2019 11:26 AM FARM SERVICE CONSULTANT EXAM: US ABDOMEN COMPLETE CLINICAL DATA: K74.60 Unspecified cirrhosis of liver, K72.90 Hepatic failure unspecified without coma, Cirrhosis or Fatty Liver COMPARISON: None. FINDINGS: A complete abdominal ultrasound was performed. LIVER: The liver is cirrhotic. No focal mass present. No intrahepatic biliary dilation. GALBLADDER/CBD: Prior cholecystectomy. The common bile duct is normal in diameter at 6 mm PORTAL VEIN: .The main portal vein is patent with hepatopedal flow. RETROPERITONEUM: The visualized pancreas, abdominal aorta, and IVC are unremarkable SPLEEN: The spleen is normal. KIDNEYS: The kidneys are normal in size and echogenicity without stones or hydronephrosis. A dromedary hump present in the left kidney. OTHER: There is no ascites. There is no pleural effusion. IMPRESSION: Cirrhosis without the liver mass. No acute sonographic abnormality. [id number] Performing Organization Address City/[facility]/ZIP Code P marco antonio Number [facility] [address] [place] [address] * Mammo Breast Screen Tomosynthesis Bilateral (04/22/2019 11:03 AM FARM SERVICE CONSULTANT) Specimen Narrative Performed At PROCEDURE: MAMMO BREAST SCREEN TOMOSYNTHESIS CATY L FRANKIE Computer aided detection was utilized f or the interpretation of the digital bilateral screening mammography with to mosynthesis. COMPARISON: None available. INDICATION: Routine screening. FINDINGS: The breast tissue is predomin antly fatty. Bilateral reduction mammoplasty changes are noted. No suspi cious mass, calcification, architectural distortion or asymmetry in either breas t. IMPRESSION: No mammographic evidence of malignancy. RECOMMENDATION: Annual screening mammog selin. BI-RADS 2: BENIGN This facility is accredited by The [facility] [employer] for Mammography. A negative x-ray report should not giovani y biopsy if a dominant or clinically suspicious mass is present. Not all can cers are identified by x-ray. [id number] Performing Organization Address [facility] Code P marco antonio Number [facility] [address] [place] [address] * URINALYSIS, COMPLETE, WITH REFLEX TO CULTURE (04/14/2019 11:44 AM FARM SERVICE CONSULTANT) Color, UA YELLOW YELLOW [facility] [place] Appearance CLEAR CLEAR [facility] [place] Specific 1.009 1.001 - 1.035 [facility] gravity, urine [facility] [place] pH, urine 7.0 5.0 - 8.0 [facility] [place] Glucose, urine NEGATIVE NEGATIVE [facility] [place] Bilirubin, UA NEGATIVE NEGATIVE [facility] [place] Ketones, UA NEGATIVE NEGATIVE [facility] [place] Occult blood, NEGATIVE NEGATIVE [facility] [place] Protein, UA NEGATIVE NEGATIVE [facility] [place] Nitrite, UA NEGATIVE NEGATIVE [facility] [place] Leukocyte NEGATIVE NEGATIVE [facility] esterase, [facility] [place] WBC, UA NONE SEEN < OR = 5 /HPF [facility] [place] RBC, UA 0-2 < OR = 2 /HPF [facility] [place] Squamous 0-5 < OR = 5 /HPF [facility] epithelial DIAGNOSTICS cells, UA [place] Bacteria, UA NONE SEEN NONE SEEN /HPF [facility] [place] Hyaline casts, NONE SEEN NONE SEEN /LPF [facility]A [facility] [place] Reflex NO CULTURE INDICATED [facility] Specimen Narrative Performed At FASTING:NO [facility] FASTING: NO Resulting Agency Comment Performing Organization Information: Site ID: [id number] Name: [facility] Address: [address] [place] [phone] Director: Gregorio Jesus Performing Organization Address [facility] P marco antonio Number [employer] [place] [id number] * Microalbumin, urine, random (04/14/2019 11:44 AM FARM SERVICE CONSULTANT) Microalbumin, 0.2 See Note: mg/dL [facility] urine Comment: DIAGNOSTICS Reference Range: [place] Reference Range Not established SELIN Comment: [facility] The ADA defines abnormalities DIAGNOSTICS in albumin ARAGON excretion as follows: Category Result (mcg/mg creatinine) Normal <30 Microalbuminuria 30-299 Clinical albuminuria > OR = 300 The ADA recommends that at least two of three specimens collected within a 3-6 month period be abnormal before considering a patient to be within a diagnostic category. Specimen Urine Narrative Performed At FASTING:NO [facility] FASTING: NO Resulting Agency Comment Performing Organization Information: Site ID: [id number] Name: [facility] Address: [address] [place] [phone] Director: Gregorio Jesus Performing Organization Address [facility] P marco antonio Number [facility] [place] [phone] * SSA/SSB antibody (04/14/2019 11:44 AM FARM SERVICE CONSULTANT) Pathologist [facility] Sjogren's SS-A <1.0 NEG <1.0 NEG AI [facility] antibody [facility]AGNOSTICS-[place]CR[place] ING II Sjogren's SS-B <1.0 NEG <1.0 NEG AI [facility] antibody [facility]AGNOSTICS-[place]CR[facility] ING II Specimen Blood Narrative Performed At FASTING:NO [facility] FASTING: NO Resulting Agency Comment Performing Organization Information: Site ID: [id number] Name: [facility] Address: [address] [place] [phone] Director: Dr. Gregorio Jesus Performing Organization Address [facility] P marco antonio Number [facility] [address] [address] II * Zinc level, serum (04/14/2019 11:44 AM FARM SERVICE CONSULTANT) Zinc 76 60 - 130 mcg/dL [facility] Comment: DIAGNOSTICS This test was developed and LOVE its analytical performance TAYLOR characteristics have been determined by [employer]. It has not been cleared or approved by the FDA. This assay has been validated pursuant to the CLIA regulations and is used for clinical purposes. Specimen Blood Narrative Performed At FASTING:NO [facility] FASTING: NO Resulting Agency Comment Performing Organization Information: Site ID: [id number] Name: [facility] Address: [address] [place] [address] Director: Christopher Smith M.D., Ph.D Performing Organization Address City/[facility] P marco antonio Number [place] [employer] [place] [address] [place] [phone] EARLY * Vitamin D 25 hydroxy level (04/14/2019 11:44 AM FARM SERVICE CONSULTANT) Vitamin D, 35 30 - 100 ng/mL [facility] 25-hydroxy Comment: DIAGNOSTICS Vitamin D Status [place] 25-OH Vitamin D: Deficiency: <20 ng/mL Insufficiency: 20 - 29 ng/mL Optimal: > or = 30 ng/mL For 25-OH Vitamin D testing on patients on D2-supplementation and patients for whom quantitation of D2 and D3 fractions is required, the QuestAssureD(TM) 25-OH VIT D, (D2,D3), LC/MS/MS is recommended: order code 82928 (patients >2yrs). For more information on this test, go to: http://education.[employer]/faq/XZL248 (This link is being provided for informational/educational purposes only.) Specimen Blood Narrative Performed At FASTING:NO [facility] FASTING: NO Resulting Agency Comment Performing Organization Information: Site ID: [id number] Name: [facility] Address: [address] [place] [phone] Director: Gregorio Jesus Performing Organization Address City/[facility] P marco antonio Number [employer] [address] [address] * Vitamin B12 level (04/14/2019 11:44 AM FARM SERVICE CONSULTANT) Vitamin B12 663 200 - 1,100 pg/mL [employer] [place] Specimen Blood Narrative Performed At FASTING:NO [facility] FASTING: NO Resulting Agency Comment Performing Organization Information: Site ID: RGA Name: [facility] Address: [address] [place] [phone] Director: Gregorio Jesus Performing Organization Address City/State/ZIP Code P marco antonio Number [facility] [address] [address] * Diabetic Retinal Scan (04/14/2019 11:31 AM FARM SERVICE CONSULTANT) Highest ALERT (A) [facility] observation value Right eye None [facility] diabetic retinopathy Iris right eye None [facility] macular edema Right eye other Suspected Glaucoma, Suspected [facility] IRI S retinopathy Dry AMD (A) Right eye image Gradable Image [facility] quality Left eye None [facility] diabetic retinopathy Left eye None [facility] macular edema Left eye other Suspected Glaucoma, Suspected [facility] IRI S retinopathy Dry AMD (A) Left eye image Gradable Image [facility] IR[facility] quality Specimen Narrative Performed At Retinal Study Result for gayle MARTÍNEZ 69 y/o, F (: [birth year] ) presented to [facility] 1948 on 04-14-2019 for a retinal imaging study of the left and right eyes. Based on the findings of the study, the following is recommended for JENNIFER MARTIN Glaucoma Suspected: Refer patient to op hthalmology. Advise appointment needed as soon as possible for suspicion of gl aucoma. Interpreting Provider's Comments: No co mments provided Right eye findings: Negative for Diabet ic Retinopathy. Other: Suspected Glaucoma Other: Suspected Dry AMD Left eye findings: Negative for Diabeti c Retinopathy. Other: Suspected Glaucoma Other: Suspected Dry AMD This result was electronically signed Trung Vicente MD, , Taxonomy: [id number] on 09:15:06 [facility] time. NOTE: Any pathology noted on this jens betic retinal evaluation should be confirmed by an appropriate ophthalmic examination. Procedure Note Hm Interface, Ancillary Results Incoming - 04/14/2019 3:16 PM FARM SERVICE CONSULTANT Retinal Study Result for gayle CALABRESE 69 y/o, F (: 1950, ) presented to [facility] 1948 on 04-14-2019 for a retinal imaging study of the left and right eyes. Based on the findings of the study, the following is recommended for JENNIFER MARTIN Glaucoma Suspected: Refer patient to ophthalmology. Advise appointment needed as soon as possible for suspicion of glaucoma. Interpreting Provider's Comments: No comments provided Right eye findings: Negative for Diabetic Retinopathy. Other: Suspected Glaucoma Other: Suspected Dry AMD Left eye findings: Negative for Diabetic Retinopathy. Other: Suspected Glaucoma Other: Suspected Dry AMD This result was electronically signed by Trung Bashir MD, , Taxonomy: [id number] on 04-14-2019 09:15:06 [facility] time. NOTE: Any pathology noted on this diabetic retinal evaluation should be confirmed by an appropriate ophthalmic examination. Performing Organization Address City/[facility] Code P marco antonio Number [facility] IRIS [address] [place] [address] * POC glycosylated hemoglobin (Hb A1C) (04/14/2019 11:24 AM FARM SERVICE CONSULTANT) Pathologist [facility] POC Hemoglobin 7.1 % A1C Specimen Blood * Aspergillus Ab by CF, serum (03/31/2019 3:42 PM FARM SERVICE CONSULTANT) Pathologist [facility] Aspergillus Ab <1:8 <1:8 [facility] CF Comment: INTERPRETIVE INFORMATION: Aspergillus Antibody by Complement Fixation (CF) Cross-reactions with dimorphic fungi are not unusual within the genus Aspergillus. A negative test does not exclude infection, especially in immuno- compromised patients. Best use of test is with paired sera taken three weeks apart to detect a rise in titer against a single antigen. Performed by [facility], [address] [place] [id number] [email or web address], Rigo Milton MD, Lab. Director Specimen Serum Performing Organization Address [facility] Center/[facility] P marco antonio Number [facility] [address] [place] [address] [facility] [address] [place] [id number] * Inhalants, SW comprehensive panel 2 (03/31/2019 3:42 PM FARM SERVICE CONSULTANT) Pecan hickory <0.10 <=0.34 [facility] tree [place] tree <0.10 <=0.34 [facility] Congolese <0.10 <=0.34 [facility] plantain Rough pigweed <0.10 <=0.34 [facility] Common ragweed <0.10 <=0.34 [facility] Swazi thistle <0.10 <=0.34 [facility] B Rough <0.10 <=0.34 [facility] marshelder Aspergillus <0.10 <=0.34 [facility] tenuis Aspergillus <0.10 <=0.34 [facility] fumigatus Bahia grass <0.10 <=0.34 [facility] Bermuda grass <0.10 <=0.34 [facility] Bruce grass <0.10 <=0.34 [facility] Mario grass <0.10 <=0.34 [facility] White christiano tree <0.10 <=0.34 [facility] Mountain cedar <0.10 <=0.34 [facility] tree Privet tree <0.10 <=0.34 [facility] Elm tree <0.10 <=0.34 [facility] Hormodendrum <0.10 <=0.34 [facility] hordei Helminthosporiu <0.10 <=0.34 [facility] B m D. farinae <0.10 <=0.34 [facility] D. <0.10 <=0.34 [facility] pteronyssinus Cat dander <0.10 <=0.34 [facility] Dog dander <0.10 <=0.34 [facility] Live/Yesica <0.10 <=0.34 [facility] oak Comment: INTERPRETIVE INFORMATION: Allergen, Yesica Robeline Test developed and characteristics determined by [facility]. See Compliance Statement A: [email or web address] Immunocap score See Note [facility] Comment: REFERENCE INTERVAL: Allergen, Interpretation Less than 0.10 kU/L......Class 0.....No significant level detected 0.10-0.34 kU/L...........Class 0/1...Clinical relevance undetermined 0.35-0.70 kU/L...........Class 1.....Low 0.71-3.50 kU/L...........Class 2.....Moderate 3.51-17.50 kU/L..........Class 3.....High 17.51-50.00 kU/L.........Class 4.....Very High 50.01-100.00 kU/L........Class 5.....Very High Greater than 100.00kU/L..Class 6.....Very High Allergen results of 0.10-0.34 kU/L are intended for specialist use as the clinical relevance is undetermined. Even though increasing ranges are reflective of increasing concentrations of allergen-specific IgE, these concentrations may not correlate with the degree of clinical response or skin testing results when challenged with a specific allergen. The correlation of allergy laboratory results with clinical history and in vivo reactivity to specific allergens is essential. A negative test may not rule out clinical allergy or even anaphylaxis. Performed by [facility], [address] [place] [address] [email or web address] [email or web address] Milton MD, Lab. Director Specimen Serum Performing Organization Address City/[facility] Code P marco antonio Number [facility] [address] REF LAB [address] [place] [address] * Eosinophil count absolute (03/31/2019 3:42 PM FARM SERVICE CONSULTANT) [facility] Eosinophils, 0.30 0.00 - 0.55 K/uL [facility] Specimen Blood Performing Organization Address City/State/ZIP Code P marco antonio Number [facility] DEPARTMENT OF [address] [place] [address] PATHOLOGY AND [facility] [address] * Anti-neutrophilic cytoplasmic Abs panel (03/31/2019 3:42 PM FARM SERVICE CONSULTANT) [facility] ANCA screen Negative Negative [facility] Specimen Blood Performing Organization Address City/[facility] Code [place] [address] PATHOLOGY AND [facility] [address] * B natriuretic peptide (03/31/2019 3:42 PM FARM SERVICE CONSULTANT) Only the most recent of 2 results within the time period is included. BNP 12 0 - 100 pg/mL [facility] Specimen Blood Performing Organization Address City/State/ZIP Code P marco antonio Number [facility] DEPARTMENT OF [address] [place] [address] PATHOLOGY AND GENOMIC MEDICINE [facility] [address] [place] [address] HOSPITAL * MRI Lumbar Spine W Wo Contrast (03/09/2019 1:35 PM FARM SERVICE CONSULTANT) Specimen Narrative Performed At EXAMINATION: MRI LUMBAR SPINE W WO CONTRAST RADIA NT CLINICAL HISTORY: Z98.890 Other specifi ed postprocedural states, back pain COMPARISON: February 15, 2018. TECHNIQUE: Multiplanar multisequence pr e and post contrast enhanced examination was performed of the Lumbar spine. FINDINGS: Postsurgical changes are agai n seen from spinal laminectomy that spans L4-L5 and L5-S1 levels. Previously seen large fluid collection in the laminectomy bed has now resolved. There is small amount of enhancement in the laminectomy bed and within the L3-L4 interspinous region th at is likely reactive in nature. There is prominent enhancement, Modic t ype 1 edema along the endplates of L3 and L4 due to Schmorl's node formation that is progressed since the prior study. No disc enhancement is seen. Morphology is compatible with degenerative change. No other sites of abnormal signal to lockett ggest marrow edema. There is no suspicious intraosseous lesions. Vertebral body heights are maintained. There is mild effacement of the lumbar lordosis. No spondylolisthesis is appre ciated at any level. Distal thoracic cord/conus is normal in morphology and signal characteristics. Conus is seen to terminate at L1-L2. Ca uda equina nerve roots are normal in morphology. No abnormal enhancement is seen within the nerve roots itself. Fatty prominence of the filum terminale is seen, incidentally n oted. Pre and paraspinal soft tissues are oth erwise unremarkable with the exception of the laminectomy bed enhancement as jose cated above. There are diffuse degenerative changes with diffuse disc desiccation. Changes by individual levels described below. At L1-L2, diffuse disc bulge is present . No significant spinal canal narrowing. Tmeg-ag-fszcewrp right neural foraminal narrowing. No left neural foraminal narrowing. At L2-L3, diffuse disc bulge is present . No significant spinal canal narrowing is seen. There is mild to moderate righ t neural foraminal narrowing. Mild left neural foraminal narrowing. At L3-L4, as indicated above Modic type I end plate edema, endplate Schmorl's node formation and enhancement due to d egenerative disease is seen. There is a diffuse disc bulge, ligamentum flavum t hickening and facet arthrosis. This results in severe spinal canal narrowing that has progres sed since February 15, 2018. There is moderate to severe right and moderate l eft neural foraminal narrowing. At L4-L5, diffuse disc bulge with a lef t lateral recess and foraminal disc protrusion, facet arthrosis and ligamen jase flavum thickening. There is a spinal laminectomy with mild residual spinal c anal narrowing. Moderate right and severe left neural foraminal narrowing not significantly c hanged compared to prior study. Small enhancement in the laminectomy bed with out significant epidural scar tissue At L5-S1, diffuse disc bulge, central d isc protrusion, facet arthrosis, spinal laminectomy. No spinal canal narrowing. Moderate to severe bilateral neural foraminal narrowing, left more than rig ht.S mall enhancement in the laminectomy bed without significant epidural scar tissue IMPRESSION: -Spinal laminectomy at L4-L5 and L5-S1 with resolution of previously seen fluid collection. Small amount of enhancing s oft tissue in the laminectomy bed without significant epidural scar tissue. No re current high-grade spinal canal narrowing. Moderate to severe degrees of neural foraminal narr owing at L4-L5 and L5-S1, stable. -Progression of degenerative change at L3-L4 with severe spinal canal narrowing and moderate to severe right and modera te left neural foraminal narrowing. [id number] Procedure Note Hm Interface, Radiology Results Incoming - 03/09/2019 2:26 PM FARM SERVICE CONSULTANT EXAMINATION: MRI LUMBAR SPINE W WO CONTRAST CLINICAL HISTORY: Z98.890 Other specified postprocedural states, back pain COMPARISON: February 15, 2018. TECHNIQUE: Multiplanar multisequence pre and post contrast enhanced examination was performed of the Lumbar spine. FINDINGS: Postsurgical changes are again seen from spinal laminectomy that spans L4-L5 and L5-S1 levels. Previously seen large fluid collection in the laminectomy bed has now resolved. There is small amount of enhancement in the laminectomy bed and within the L3-L4 interspinous region that is likely reactive in nature. There is prominent enhancement, Modic type 1 edema along the endplates of L3 and L4 due to Schmorl's node formation that is progressed since the prior study. No disc enhancement is seen. Morphology is compatible with degenerative change. No other sites of abnormal signal to suggest marrow edema. There is no suspicious intraosseous lesions. Vertebral body heights are maintained. There is mild effacement of the lumbar lordosis. No spondylolisthesis is appreciated at any level. Distal thoracic cord/conus is normal in morphology and signal characteristics. Conus is seen to terminate at L1-L2. Cauda equina nerve roots are normal in morphology. No abnormal enhancement is seen within the nerve roots itself. Fatty prominence of the filum terminale is seen, incidentally noted. Pre and paraspinal soft tissues are otherwise unremarkable with the exception of the laminectomy bed enhancement as indicated above. There are diffuse degenerative changes with diffuse disc desiccation. Changes by individual levels described below. At L1-L2, diffuse disc bulge is present. No significant spinal canal narrowing. Fwhh-qc-ptahpylo right neural foraminal narrowing. No left neural foraminal narrowing. At L2-L3, diffuse disc bulge is present. No significant spinal canal narrowing is seen. There is mild to moderate right neural foraminal narrowing. Mild left neural foraminal narrowing. At L3-L4, as indicated above Modic type I end plate edema, endplate Schmorl's node formation and enhancement due to degenerative disease is seen. There is a diffuse disc bulge, ligamentum flavum thickening and facet arthrosis. This results in severe spinal canal narrowing that has progressed since February 15, 2018. There is moderate to severe right and moderate left neural foraminal narrowing. At L4-L5, diffuse disc bulge with a left lateral recess and foraminal disc protrusion, facet arthrosis and ligamentum flavum thickening. There is a spinal laminectomy with mild residual spinal canal narrowing. Moderate right and severe left neural foraminal narrowing not significantly changed compared to prior study. Small enhancement in the laminectomy bed without significant epidural scar tissue At L5-S1, diffuse disc bulge, central disc protrusion, facet arthrosis, spinal laminectomy. No spinal canal narrowing. Moderate to severe bilateral neural foraminal narrowing, left more than right.S mall enhancement in the laminectomy bed without significant epidural scar tissue IMPRESSION: -Spinal laminectomy at L4-L5 and L5-S1 w ith resolution of previously seen fluid collection. Small amount of enhancing soft tissue in the laminectomy bed without significant epidural scar tissue. No recurrent high-grade spinal canal narrowing. Moderate to severe degrees of neural foraminal narrowing at L4-L5 and L5-S1, stable. -Progression of degenerative change at L3-L4 with severe spinal canal narrowing and moderate to severe right and moderate left neural foraminal narrowing. [id number] Performing Organization Address City/[facility]/ZIP Code P marco antonio Number [facility] [address] [place] [address] * Troponin (01/30/2019 8:22 PM FARM SERVICE CONSULTANT) Troponin <0.006 0.000 - 0.040 ng/mL [place] Comment: A[facility]IST CLEAR [facility] changed methodology effective: 07/06/2018 at 10:00 am The new method has a 99th percentile cutoff of 0.040 ng/mL Specimen Plasma specimen Performing Organization Address [facility] P marco antonio Number [facility] [place] [id number] [place] [address] [place] [address] PATHOLOGY AND GENOMIC MEDICINE [facility] [id number] [place] [address] [place] [address] [facility] * XR Chest 2 Vw (01/30/2019 7:37 PM FARM SERVICE CONSULTANT) Specimen Narrative Performed At [facility]AMIN[facility]: [facility]ST 2 VW CLINICAL HISTORY: Cough COMPARISON: Portable chest, obtained on 02/19/2018 at 1646 hours. FINDINGS: Cardiac and mediastinal silhouettes are within normal limits. There is no vascular congestion, pleural fluid, inf iltrate or pneumothorax. Skeletal structures are normal. IMPRESSION: Normal chest. [id number] Procedure Note Interface, Radiology Results Incoming - 01/30/2019 8:11 PM FARM SERVICE CONSULTANT EXAMINATION: XR CHEST 2 VW CLINICAL HISTORY: Cough COMPARISON: Portable chest, obtained on 02/19/2018 at 1646 hours. FINDINGS: Cardiac and mediastinal silhouettes are within normal limits. There is no vascular congestion, pleural fluid, infiltrate or pneumothorax. Skeletal structures are normal. IMPRESSION: Normal chest. [id number] Performing Organization Address City/[facility]/ZIP Code P marco antonio Number [facility] [address] [place] [address] * ECG ED Preliminary Interpretation - Not an Order (01/30/2019 6:43 PM FARM SERVICE CONSULTANT) Narrative Performed At Boni Negron MD 01/31/2019 2:47 PM ECG ED Preliminary Interpretation - Not an Order Performed by: Boni Negron MD Authorized by: Boni Negron MD ECG reviewed by ED Physician in the abs ence of a paperhanger apprentice: yes ([id number]) Interpretation: Interpretation: normal Rate: ECG rate: 79 ECG rate assessment: normal Rhythm: Rhythm: sinus rhythm Ectopy: Ectopy: none QRS: QRS axis: Normal QRS intervals: Normal Conduction: Conduction: normal ST segments: ST segments: Normal T waves: T waves: normal * XR Hip 2-3 View Left (01/11/2019 11:18 AM FARM SERVICE CONSULTANT) Specimen Narrative Performed At [facility] Left hip AP and lateral: Mild osteoarth ritis. 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
--- OUTSIDE RECORDS SUMMARY | 2020-01-08 14:51 | XMS REPORT | Continuity of Care Document ---
Author Author [facility] t Organization [facility] t Address [address] [place] [address] Phone Unavailable Care Team Providers Care Clinical Applications Specialist Name Role Phone NONSTAFF PCP Unavailable NURA FLORES Attphys Unavailable Pauline BRITT, Shantel Attphys Vick Fontana MD Attphys ARON AYALA Attphys Unavailable Denita Nolen MA Attphys Unavailable Kenny DO, Curtis Velasquez Attphys Maikel Barrett MD Attphys Annie Song LVN Attphys Unavailable Robyn DO, R Lachelle Attphys [phone] Deanne BRITT, Sumaya Jimenez Attphys [phone] Janet Allen RN, Alee Attphys Unavailable Dawit BRITT, Masood Kirby Attphys Suma Song MA Attphys Unavailable Tiffanie Benitez MA Attphys Unavailable Krystin BRITT, Jacob Attphys Levar BRITT, John Ayala Attphys Kavon Ridley CRNA Attphys [phone] Nirali BRITT, Yadiel Welch Attphys Lizeth [facility] [employer]NAGER, Jennifer Jackson Attphys Georges BRITT, Gregorio Cortez Attphys Denita Solis Attphys Unavailable Val Blanco Attphys Unavailable Hayder RN, Coni Attphys Unavailable Silvano BRITT, Carlie Hernandez Attphys Marium Churchill MD, Joshua Plata Attphys Jessica DOVE Attphys Unavailable ACRES, MILTON Admphys Unavailable SANDRA, NURA Admphys Unavailable Payers Payer Name Policy Type Policy Number Effective Date Expiration Date S vera MEDICAREMEDICARE PART A AND [id number] 2016-PresentROBERT [place], [place] [id number] 2017 00:00:00 [place]ora Y[facility] MUTUAL OF OMAHAMUTUAL OF [id number] 2016-PresentCommerci al [id number] 2017 00:00:00 [facility] Medicare A & B [id number] 2017 00:00:00 [facility] Problems Condition Name Condition Details Condition Category Status Onset Date Resolution Date Last Treatment Date Treating Clinician Comments Source Other cirrhosis of liver Other cirrhosis of liver Disease Acti ve 2019-09-28 00:00:00 Mahesh thomas Hyperkalemia Hyperkalemia Disease Active 2019-09-28 00:00:00 Mahesh Lomeli Hyponatremia syndrome Hyponatremia syndrome Disease Active 202 00:00:00 Mahesh Banuelos t Pseudophakia Pseudophakia Disease Active 2019-07-27 00:00:00 Overview: OU Dr. Jaqui Choi Assessment & Plan: OU Dr. 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 Carpenter suggested AMD.Saw Dr. 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 Dove and asked to f/u in 3-6 months.Sisters see me, have AMD as well. FH strong.Agree with above. Info given. Continue retina/[facility] followup. Mahesh Lomeli Vitreous floaters of both eyes Vitreous floaters of both eyes Disea se Active 2019-07-27 00:00:00 Last Assessment & Mervin n: Explained to patient. 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 Carpenter.Agree, mild, OS > OD, normal IOP and excellent CH. -FH.Follow. 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 2019-07-13 00:00:00 Mahesh Lomeli Status post lumbar spine surgery for decompression of spinal cord Status post lumbar spine surgery for decompression of spinal cord Disease Active 2018-03-09 00:00:[address] Spinal stenosis, lumbar region, with neurogenic claudi cation Spinal stenosis, lumbar region, with neurogenic claudication Disease Active 2017 00:00:00 Mahesh Banuelos t Lumbar stenosis Lumbar stenosis Disease Active 2018-02-09 00:00:00 Mahesh Lomeli Spinal stenosis of lumbar region with neurogenic radhika ication Spinal stenosis of lumbar region with neurogenic claudication Disease Active 2018-02-08 00:00:00 Mahesh Lomeli Spinal stenosis of lumbar region Spinal stenosis of lumbar regio n Disease Active 2018-01-05 00:00:00 Mae Lyist Essential hypertension Essential hypertension Disease Active 2016-10-22 00:00:[address] Type 2 diabetes mellitus without complic ation, without long-term current use of insulin Type 2 diabetes mellitus without complic ation, without long-term current use of insulin Disease Active 2016-10-21 00:00:00 Last Assessment & Plan: Referral Dr. Carpenter.No diabetic retinopathy. Annual exams recommended. Importance of good blood sugar control discussed. Note sent. Aragon Yazidism Allergies, Adverse Reactions, Alerts Allergy Name Allergy Type Status Severity Reaction(s) Onset Date Inacti ve Date Treating Clinician Comments Source morphine DA Active NE 2017-10-28 00:00:00 [facility] adhesive tape DA Active MO 2017-10-28 00:00:00 [facility] Adhesive Tape-Silicones Propensity to adverse reactions to drug Activ e 2017-10-28 00:00:00 "tears skin" - Paper tape OK Mahesh Lomeli Morphine Propensity to adverse reactions to drug Active Swelling 2017-10-28 00:00:00 Itching, throat tightening [place] [facility] Family History Family Member Diagnosis Comments Start Date Stop Date Source Natural father Brain cancer Mahesh Lomeli Natural mother Lung cancer Mahesh Obrien ethodist Paternal grandfather Colon cancer Ho esha Yazidism Social History Social Habit Start Date Stop Date Quantity Comments Source Sex Assigned At Robert lexis Lomeli Exposure to SARS-CoV-2 (event) Not sure Mahesh Lomeli Tobacco use and exposure 2019-09-28 00:00:00 2019-09-28 00:00:00 Man[place] r used Mahesh Lomeli Alcohol intake 2019-09-28 00:00:00 2019-09-28 00:00:00 Current non-drinker of alcohol (finding) Mahesh Lomeli Smoking Status Start Date Stop Date Source Never smoker Mahesh johnson Medications Ordered Medication Name Filled Medication Name Start Date Stop Da te Current Medication? Ordering Clinician Indication Dosage Frequency Signature (SIG) Comments Components Source cyclobenzaprine (FLEXERIL) 10 mg tablet 2019-12-09 00:00:00 Yes Status post lumbar spine surgery for decompression of spinal cord TAKE 1 TABLET BY MOUTH THREE TIMES A DAY NEEDED FOR MUSCLE SPASMS Mahesh Lomeli gabapentin (NEURONTIN) 300 mg capsule 2019-11-22 00:00:00 Yes Chronic bilateral low back pain without sciatica TAKE 2 CAPSULES BY MOUTH 3 TIMES A DAY Mahesh Lomeli acetaminophen-codeine (TYLENOL WITH CODEINE #3) 300-30 mg pe r tablet 2019-11-14 00:00:00 2019-11-24 23:59:00 No chronic pain 1{tbl} Q6H Take 1 tablet by mouth every 6 (six) hours as needed for moderate pain for up to 10 days .chronic pain. Mahesh Lomeli Synthroid 137 mcg tablet 2019-11-08 00:00:00 Yes Acquired hypothyroidism 137ug QD Take 1 tablet (137 mcg total) by mouth daily. Mahesh Lomeli traZODone (DESYREL) 150 MG tablet 2019-11-04 14:26:25 2019 00:00:00 No 150mg Q.5D Take 150 mg by mouth 2 (two) times a day . Mahesh Lomeli venlafaxine XR (EFFEXOR-XR) 150 MG 24 hr capsule 2019-11-04 10:33:06 Yes 150mg QD Take 150 mg by mouth daily. Mahesh Lomeli melatonin 10 mg tablet 2019-11-04 10:33:06 Yes QD Take by mouth nightly. Mahesh Lomeli ferrous sulfate 325 (65 FE) MG tablet 2019-11-04 10:33:06 Y es 325mg Q2D Take 325 mg by mouth every other day. Thai Lomeli folic acid/multivit-min/lutein (CENTRUM SILVER ORAL) 2 10:33:06 Yes 1{tbl} QD Take 1 tablet by mouth daily. Mahesh Lomeli riFAXimin (XIFAXAN) 550 mg tablet 2019-11-04 10:33:06 Yes 550mg Q.5D Take 550 mg by mouth 2 (two) times a day. Mahesh Lomeli traZODone (DESYREL) 300 MG tablet 2019-11-04 00:00:00 Yes Mood insomnia (HCC) 300mg QD Take 1 tablet (300 mg total) by mouth nightly. Mahesh Lomeli pilocarpine (SALAGEN) 7.5 MG tablet 2019-11-04 00:00:00 Yes Xerostomia 7.5mg Q.[id number] Take 1 tablet (7.5 mg total) by mouth 3 (three) times a day. Mahesh Lomeli gabapentin (NEURONTIN) 300 mg capsule 2019-11-04 00:00 :00 2019-11-22 00:00:00 No Chronic bilateral low back pain without sciatica 300mg Q.[id number] Take 1 capsule (300 mg total) by mouth 3 (three) times a day. TAKE 2 CAPSULES BY MOUTH THREE TIMES A DAY Mahesh Lomeli Synthroid 125 mcg tablet 2019-10-31 00:00:00 2019-11-08 00:0 0:00 No Acquired hypothyroidism TAKE 1 TABLET BY MOUTH EVERY DAY Mahesh Lomeli glipiZIDE (GlucotroL) 10 MG tablet 2019-10-12 00:00:00 Yes Type 2 diabetes mellitus without complication, without long-term current use of insulin (HCC) 10mg QD Take 1 tablet (10 mg total) by mouth daily with breakf ast. 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 Mahesh Lomeli cyclobenzaprine (FLEXERIL) 10 mg tablet 00:00:00 2019-12-09 00:00:00 No Status post lumbar spine surgery for decompression of spinal cord TAKE 1 TABLET BY MOUTH THREE TIMES A DAY NEEDED FOR MUSCLE SPASMS Mahesh Lomeli furosemide (LASIX) 20 mg tablet 2019-09-18 00:00:00 23:59:00 No 20mg Q.5D Take 1 tablet (20 mg total) by m outh 2 (two) times a day for 30 days. Mahesh Lomeli furosemide (LASIX) 20 mg tablet 2019-08-09 00:00: 00:00:00 No Bilateral lower extremity edema 40mg QD Take 2 t ablets (40 mg total) by mouth daily. Mahesh Lomeli spironolactone (ALDACTONE) 25 MG tablet 00:00:00 2019-09-18 00:00:00 No Bilateral lower extremity edema 50mg Q.5D Take 2 tablets (50 mg total) by mouth 2 (two) times a day. Robert Lomeli cyclobenzaprine (FLEXERIL) 10 mg tablet 00:00:00 2019-10-03 00:00:00 No Status post lumbar spine surgery for decompression of spinal cord TAKE 1 TABLET BY MOUTH THREE TIMES A DAY NEEDED FOR MUSCLE SPASMS Mahesh Lomeli zinc sulfate (ZINCATE) 220 (50) mg capsule 07-06 00:00:00 2019-08-09 00:00:00 No HE (hepatic encephalopathy) (HCC) 220mg Q. 5D Take 1 capsule (220 mg total) by mouth 2 (two) times a day. Mahesh Lomeli clonAZEPAM (KlonoPIN) 1 MG tablet 2019-06-13 13:30:42 2019 00:00:00 No 2mg Take 2 mg by mouth as needed for anxiety . Mahesh Lomeli gabapentin (NEURONTIN) 300 mg capsule 2019-06-06 00:00 :00 2019-11-04 00:00:00 No TAKE 2 CAPSULES BY MOUTH THREE TIMES A D AY Mahesh Lomeli gabapentin (NEURONTIN) 300 mg capsule 2019-05-09 00:00 :00 2019-06-06 00:00:00 No Take 2 pills tid Mahesh Lomeli gabapentin (NEURONTIN) 300 mg capsule 2019-04-14 11:07 :59 2019-04-14 00:00:00 No 300mg Q.[id number] Take 300 mg b y mouth 3 (three) times a day. Mahesh Lomeli olmesartan (BENICAR) 40 MG tablet 2019-04-14 11:07:59 2019 00:00:00 No 40mg QD Take 40 mg by mouth daily. Mahesh Lomeli eipcwdfp-zov-DO-lycopen-lutein (CENTRUM SILVER) 0.4-300-250 mg-mcg-mcg tablet 2019-04-14 10:19:49 2019-04-14 00:00:00 No Take by mouth. Mahesh Lomeli metFORMIN (GLUCOPHAGE) 1,000 mg tablet 2019-04-14 00:00:00 Yes Type 2 diabetes mellitus without complication, without long-term current use of insulin (HCC) 1000mg Q.5D Take 1 tablet (1,000 mg total) by mouth 2 (two) times a day with meals. Mahesh Lomeli imipramine (TOFRANIL) 10 MG tablet 2019-04-14 00:00:00 Y es Enureses 10mg QD Take 1 tablet (10 mg total) by mouth nightly. Mahehs Lomeli omeprazole (PriLOSEC) 40 MG capsule 2019-04-14 00:00:00 Yes Gastroesophageal reflux disease, esophagitis presence not specified 40mg QD Take 1 capsule (40 mg total) by mouth daily. Mahesh Lomeli olmesartan (BENICAR) 40 MG tablet 2019-04-14 00:00:00 Yes Essential hypertension 40mg QD Take 1 tablet (40 mg total) by mouth daily. Mahesh Lomeli SYNTHROID 125 mcg tablet 2019-04-14 00:00:00 2019-10-31 00:0 0:00 No Acquired hypothyroidism 125ug QD Take 1 tablet (125 mcg total) by mouth fredo Lomeli glipiZIDE (GLUCOTROL) 10 MG tablet 2019-04-14 00:00:00 00:00:00 No Type 2 diabetes mellitus without complic ation, without long-term current use of insulin (HCC) 10mg Q.5D Take 1 tablet (10 mg total) by mouth 2 (two) times a day before meals. Mahesh Lomeli gabapentin (NEURONTIN) 300 mg capsule 2019-04-14 00:00 :00 2019-05-09 00:00:00 No Diabetic polyneuropathy associated with type 2 diabetes mellitus (HCC) 300mg Q.[id number] Take 1 capsule (300 mg total ) by mouth 3 (three) times a day. Mahesh Lomeli meloxicam (MOBIC) 15 mg tablet 2019-04-11 00:00:00 2019-04-14 00 :00:00 No TAKE 1 TABLET BY MOUTH EVERY DAY Mahesh Lomeli cyclobenzaprine (FLEXERIL) 10 mg tablet 00:00:00 2019-07-21 00:00:00 No Status post lumbar spine surgery for decompression of spinal cord TAKE 1 TABLET BY MOUTH THREE TIMES A DAY NEEDED FOR MUSCLE SPASMS Mahesh Lomeli cyclobenzaprine (FLEXERIL) 10 mg tablet 00:00:00 2019-04-04 00:00:00 No Status post lumbar spine surgery for decompression of spinal cord TAKE 1 TABLET BY MOUTH THREE TIMES A DAY NEEDED FOR MUSCLE SPASMS Mahesh Lomeli meloxicam (MOBIC) 15 mg tablet 2019-03-16 00:00:00 2019-04-11 00 :00:00 No TAKE 1 TABLET BY MOUTH EVERY DAY Mahesh Lomeli acetaminophen-codeine (TYLENOL WITH CODEINE #4) 300-60 mg pe r tablet 2019-02-28 00:00:00 2019-03-30 23:59:00 No acute pain 1{tbl} Q4H Take 1 tablet by mouth every 4 (four) hours as needed for moderate pain for up to 30 days .acute pain. Mahesh Lomeli meloxicam (MOBIC) 15 mg tablet 2019-02-09 00:00:00 2019-03-16 00 :00:00 No 15mg QD Take 1 tablet (15 mg total) by mouth daily for 30 days . Mahesh Lomeli albuterol (PROVENTIL) 5 mg/mL nebulizer solution 2019-01-30 00:00:00 2019-02-15 00:00:00 No 2.5mg Q6H Take 0.5 mL (2.5 mg total) by nebulization every 6 (six) hours as needed for wheezing for up to 30 days. Mahesh Lomeli predniSONE (DELTASONE) 20 mg tablet 2019-01-30 00:00:0 0 2019-02-04 23:59:00 No 40mg QD Take 2 tablets (40 mg total) by mouth da ghislaine for 5 days. Mahesh Lomeli levoFLOXacin (LEVAQUIN) 750 MG tablet 2019-01-30 00:00 :00 2019-02-04 23:59:00 No 750mg QD Take 1 tablet (750 mg total) by mouth da ghislaine for 5 days. Mahesh Lomeli nebulizers misc 2019-01-30 00:00:00 2019-01-30 23:59:00 No 1U 1 Units once for 1 dose. Mahesh Lomeli meloxicam (MOBIC) 15 mg tablet 2019-01-18 00:00:00 2019-02-09 00 :00:00 No 15mg QD Take 1 tablet (15 mg total) by mouth daily for 30 days . Mahesh Lomeli LACTULOSE ORAL 2019-01-11 11:08:46 2019-01-11 00:00:00 No Take by mouth. Mahesh Lomeli methylPREDNISolone (MEDROL DOSEPAK) 4 mg tablet 2019-01-11 00:00:00 2019-01-16 23:59:00 No 4mg Take 1 tablet (4 mg total) by mouth See Admin Instructions for 5 days. Use as directed by package instructions Mahesh Lomeli spironolactone (ALDACTONE) 25 MG tablet 00:00:00 2019-08-09 00:00:00 No Bilateral lower extremity edema 25mg Q.5D Take 1 tablet (25 mg total) by mouth 2 (two) times a day. Robert Lomeli furosemide (LASIX) 20 mg tablet 2018-12-22 00:00:00 00:00:00 No Bilateral lower extremity edema 20mg QD Take 1 t ablet (20 mg total) by mouth daily. Mahesh Lomeli glipiZIDE (GLUCOTROL) 10 MG tablet 2018-11-20 00:00:00 00:00:00 No 10mg QD Take 10 mg by mouth daily. Mahesh Lomeli lactulose (CHRONULAC) 10 gram/15 mL solution 201 11-08-09 00:00:00 2019-11-04 00:00:00 No Q.5D Take by mouth 2 (two) times a d ay. Mahesh Lomeli cyclobenzaprine (FLEXERIL) 10 mg tablet 00:00:00 2019-03-20 00:00:00 No Status post lumbar spine surgery for decompression of spinal cord TAKE 1 TABLET BY MOUTH 3 TIMES A DAY NEEDED FOR MUS MARLY SPASMS Mahesh Lomeli traZODone (DESYREL) 50 MG tablet 2017-08-16 00:00:00 2019-10 00:00:00 No 150mg QD Take 150 mg by mouth nightly. Pt reports taking two tabs at bedtime Mahesh Lomeli SYNTHROID 125 mcg tablet 2017-08-13 00:00:00 2019-04-14 00:00:00 No 125ug QD Take 125 mcg by mouth daily. Robert Lomeli pilocarpine (SALAGEN) 7.5 MG tablet 2017-08-01 00:00:0 0 2019-11-04 00:00:00 No 7.5mg Q.[id number] Take 7.5 mg by mo ut 3 (three) times a day. Mahesh Lomeli valsartan (DIOVAN) 160 MG tablet 2017-07-31 00:00:00 2019-04 00:00:00 No 160mg QD Take 160 mg by mouth daily. Mahesh Lomeli omeprazole (PriLOSEC) 40 MG capsule 2017-07-02 00:00:0 0 2019-04-14 00:00:00 No TAKE ONE CAPSULE BY MOUTH ONCE A DAY Mahesh Lomeli imipramine (TOFRANIL) 10 MG tablet 2017-06-25 00:00:00 00:00:00 No 10mg QD Take 10 mg by mouth nightly. Mahesh Lomeli metFORMIN (GLUCOPHAGE) 1,000 mg tablet 2017-02-2 0 00:00:00 2019-04-14 00:00:00 No 1000mg Q.5D Take 1,000 mg by mouth 2 (two) t imes a day with meals. Mahesh Lomeli Fluoxetine Hcl (Prozac) 40 Mg Capsule Fluoxetine Hcl (Prozac) 40 Mg Capsule Yes 80 Daily [facility] Levothyroxine Sodium (Synthroid) 25 Mcg Tablet Levothy roxine Sodium (Synthroid) 25 Mcg Tablet Yes [facility] Omeprazole 40 Mg Capsule. Omeprazole 40 Mg Capsule. Yes 40 Twice A Day [facility] Trazodone Hcl 150 Mg Tablet Trazodone Hcl 150 Mg Tablet Yes 150 Bedtime [facility] Immunizations Ordered Immunization Name Filled Immunization Name Date Status Comments Source Pneumococcal Conjugate 13-Valent 2019-04-14 00:00:00 Compl eted Mahesh Lomeli Tdap 2016-11-13 00:00:00 Completed Mae Lomeli Hep A / Hep B 2014-11-16 00:00:00 Completed Thai Lomeli Pneumococcal Conjugate 13-Valent 2014-10-26 00:00:00 Compl eted Mahesh Lomeli Vital Signs Vital Name Observation Time Observation Value Comments Source Body height 2019-09-28 15:53:00 165.1 cm Mahesh Lomeli Systolic blood pressure 2019-09-18 07:38:05 115 mm[Hg] Mahesh Lomeli Diastolic blood pressure 2019-09-18 07:38:05 53 mm[Hg] Mahesh Lomeli Heart rate 2019-09-18 07:38:05 75 /min Mahesh Lomeli Body temperature 2019-09-18 07:38:05 36.72 Darya Yu Lomeli Respiratory rate 2019-09-18 07:38:05 18 /min Yu Lomeli Oxygen saturation in Arterial blood by Pulse oximetry 09-17 07:38:05 95 /min Mahesh Lomeli Body weight 2019-09-18 06:00:00 90.266 kg Mahesh Lomeli BMI 2019-09-18 06:00:00 33.12 kg/m2 Mahesh Lomeli Procedures Procedure Date / Time Performed Performing Clinician Sourc e URINE CULTURE 2019-11-04 14:18:00 Shantel Carpenter [facility] COMPREHENSIVE METABOLIC PANEL 2019-11-04 14:18:00 Sandra Carpenter THYROID STIMULATING HORMONE 2019-11-04 14:18:00 Kristin Carpenter T4, FREE 2019-11-04 14:18:00 Pauline Shantel Mahesh [facility] HEMOGLOBIN A1C 2019-11-04 14:18:00 EverardoShantel collado Mahesh [facility]ist URINALYSIS SCREEN AND MICROSCOPY, WITH REFLEX TO CULTURE 202 14:18:00 Shantel Carpenter ESTIMATED GFR 2019-11-04 14:18:00 Rolanda Carpenternica Mahesh [facility] HC COMPLETE BLD COUNT W/AUTO DIFF 2019-11-04 14:18:00 Tamika Ayala HC COMPLETE BLD COUNT W/AUTO DIFF 2019-10-18 13:45:00 Wayne Fontana COMPREHENSIVE METABOLIC PANEL 2019-10-18 13:45:00 Ike Fontana PROTHROMBIN TIME WITH INR 2019-10-18 13:45:00 Ike Fontana IMMUNOGLOBULIN M 2019-10-18 13:45:00 Ike Fontana [facility] RENAL FUNCTION PANEL 2019-10-18 13:45:00 Tamika Ayala ESTIMATED GFR 2019-10-18 13:45:00 Tamika Ayala COMPREHENSIVE METABOLIC PANEL 2019-10-05 14:03:00 Ab shanta Ayala MAGNESIUM LEVEL 2019-10-05 14:03:00 Tamika Ayala PHOSPHORUS LEVEL 2019-10-05 14:03:00 Tamika Ayala ESTIMATED GFR 2019-10-05 14:03:00 Tamika Ayala POC GLUCOSE 2019-09-18 05:46:00 [place] POC GLUCOSE 2019-09-17 21:00:00 Acr[place] POC GLUCOSE 2019-09-17 16:41:00 Acr Miltonsiria Lomeli BASIC METABOLIC PANEL 2019-09-17 15:01:00 Sid Mcmahon ESTIMATED GFR 2019-09-17 15:01:00 Sid Mcmahon Yazidism POC GLUCOSE 2019-09-17 11:30:00 [place], [place] Aragon Yazidism POC GLUCOSE 2019-09-17 06:24:00 [place], [place] Ko Aragon Yazidism COMPREHENSIVE METABOLIC PANEL 2019-09-17 04:31:00 Delia Mcmahonist ESTIMATED GFR 2019-09-17 04:31:00 Sid Mcmahon Yazidism POC GLUCOSE 2019-09-16 20:34:00 [place], [place] Aragon Yazidism POC GLUCOSE 2019-09-16 15:46:00 [facility] [place] [facility] 2019-09-16 11:38:00 [place], [place] Ko Aragon Yazidism POC GLUCOSE 2019-09-16 09:58:00 [place] [place] [facility]SE 2019-09-16 09:11:00 [place], [place] Aragon Yazidism ECG 12-LEAD 2019-09-16 09:06:27 [place], [place] Maikel Aragon Yazidism POC GLUCOSE 2019-09-16 05:58:00 [place] [place] [facility] COMPREHENSIVE METABOLIC PANEL 2019-09-16 05:42:00 Juju Arnold Yazidism URIC ACID LEVEL 2019-09-16 05:42:00 Juju Arnold Meth odist MAGNESIUM LEVEL 2019-09-16 05:42:00 Juju Arnold Meth odist PHOSPHORUS LEVEL 2019-09-16 05:42:00 Juju Arnold Met hodist CORTISOL LEVEL, RANDOM 2019-09-16 05:42:00 Juju Arnold on Yazidism ESTIMATED GFR 2019-09-16 05:42:00 Tamika Ayala POC GLUCOSE 2019-09-15 22:27:00 [place], [place] Lomeli COVID-19 QUALITATIVE PCR 2019-09-15 21:13:00 Ron Cox POC GLUCOSE 2019-09-15 18:42:00 Ron Cox HC COMPLETE BLD COUNT W/AUTO DIFF 2019-09-15 18:02:00 Moe Cox BASIC METABOLIC PANEL 2019-09-15 18:02:00 KennyRon ESTIMATED GFR 2019-09-15 18:02:00 Ron Cox URINALYSIS, AUTOMATED WITH MICROSCOPY 2019-09-15 12:33:00 Ike Fontana PROTHROMBIN TIME WITH INR 2019-09-15 12:33:00 Ike Fontana COMPREHENSIVE METABOLIC PANEL 2019-09-15 12:33:00 Ike Fontana HC COMPLETE BLD COUNT W/AUTO DIFF 2019-09-15 12:33:00 Wayne Fontana ESTIMATED GFR 2019-09-15 12:33:00 Ike Fontana Met hodist HC COMPLETE BLD COUNT W/AUTO DIFF 2019-09-12 16:04:00 Wayne Fontana COMPREHENSIVE METABOLIC PANEL 2019-09-12 16:04:00 Ike Fontana PROTHROMBIN TIME WITH INR 2019-09-12 16:04:00 Ike Fontana IGG SUBCLASSES 2019-09-12 16:04:00 Ike Fontana Met hodist ESTIMATED GFR 2019-09-12 16:04:00 Ike Fontana Met hodist IGG SUBCLASSES 2019-08-23 16:15:00 Ike Fontana Met hodist PROTHROMBIN TIME WITH INR 2019-08-23 16:15:00 Ike Fontana COMPREHENSIVE METABOLIC PANEL 2019-08-23 16:15:00 Ike Fontana HC COMPLETE BLD COUNT W/AUTO DIFF 2019-08-23 16:15:00 Wayne Fontana ESTIMATED GFR 2019-08-23 16:15:[address]ke Fontana [address] [facility] CT ABDOMEN PELVIS W CONTRAST 2019-08-10 16:37:08 Patti Maria Yazidism US ABDOMINAL LIMITED 2019-08-10 14:10:00 Ike Fontana Yazidism HC COMPLETE BLD COUNT W/AUTO DIFF 2019-08-09 10:38:00 Wayne Fontana COMPREHENSIVE METABOLIC PANEL 2019-08-09 10:38:00 Ike Fontana PROTHROMBIN TIME WITH INR 2019-08-09 10:38:00 Ike Fontana PARTIAL THROMBOPLASTIN TIME (PTT) 2019-08-09 10:38:00 Wayne Fontana ESTIMATED GFR 2019-08-09 10:38:00 Ike Fontana Met hodist IGAM 2019-08-09 10:38:00 Ike Fontana Met hodist GGT 2019-08-09 10:38:00 Ike Fontana Met hodist HC COMPLETE BLD COUNT W/AUTO DIFF 2019-07-26 14:04:00 Wayne Fontana COMPREHENSIVE METABOLIC PANEL 2019-07-26 14:04:00 Ike Fontana FERRITIN LEVEL 2019-07-26 14:04:00 Ike Fontana Met hodist GGT 2019-07-26 14:04:00 Ike Fontana Met hodist PROTHROMBIN TIME WITH INR 2019-07-26 14:04:00 Ike Fontana IMMUNOGLOBULIN M 2019-07-26 14:04:00 Ike Fontana Me thodist TOTAL IRON BINDING CAPACITY 2019-07-26 14:04:00 Ike Fontana LIPID PANEL 2019-07-26 14:04:00 Ike Fontana Met hodist MAGNESIUM LEVEL 2019-07-26 14:04:00 Ike Fontana Met hodist ESTIMATED GFR 2019-07-26 14:04:00 Ike Fontana Met hodist FL ESOPHAGRAM DOUBLE CONTRAST 2019-05-09 12:43:[address] CHEST WO CONTRAST 2019-05-09 11:25:00 Jacob Mcclelland TTE COMPLETE, WO CONTRAST, W DOPPLER ([id number]) 2019-05-09 10:5 6:33 Jacob Mcclelland [place] < 1 HOUR 2019-04-29 12:27:45 SandraNura wilkinson INJECTION, STEROID, SPINE, LUMBAR, EPIDURAL, SINGLE 12:12:00 Nura Flores POC GLUCOSE 2019-04-29 10:45:00 SandraNura wilkinson POC GLUCOSE 2019-04-29 09:05:00 Nura Flores US ABDOMEN COMPLETE 2019-04-22 11:15:43 Ike Fontana MAMMO BREAST SCREEN TOMOSYNTHESIS BILATERAL 2019-04-22 11:03 :52 Shantel Carpenter CBC WITH PLATELET AND DIFFERENTIAL 2019-04-14 11:44:00 Shantel Carpenter COMPREHENSIVE METABOLIC PANEL 2019-04-14 11:44:00 Sandra Carpenter LIPID PANEL 2019-04-14 11:44:00 Shantel Carpenter [facility] T4, FREE 2019-04-14 11:44:00 Shantel Carpenter [facility] THYROID STIMULATING HORMONE 2019-04-14 11:44:00 Kristin Carpenter URINALYSIS, COMPLETE, WITH REFLEX TO CULTURE 2019-04-14 11:4 4:00 Shantel Carpenter VITAMIN D 25 HYDROXY LEVEL 2019-04-14 11:44:00 Shantel Carpenter MICROALBUMIN, URINE, RANDOM 2019-04-14 11:44:00 Kristin Carpenter SSA/SSB ANTIBODY 2019-04-14 11:44:00 Shantel Carpenter ethodi ZINC LEVEL, SERUM 2019-04-14 11:44:00 Shantel Carpenter VITAMIN B12 LEVEL 2019-04-14 11:44:00 Shantel Carpenter MAGNESIUM LEVEL 2019-04-14 11:44:00 Shantel Carpenter [facility] [place] FUNDAL PHOTOGRAPHY 2019-04-14 11:31:02 Shantel Carpenter POC GLYCOSYLATED HEMOGLOBIN (HGB A1C) 2019-04-14 11:24:00 Shantel Mack ECG 12-LEAD 2019-04-14 11:17:26 Shantel Carpenter [facility] POC GLUCOSE 2019-04-11 11:23:00 Nura Flores [place] < 1 HOUR 2019-04-11 11:11:28 Nura Flores INJECTION, STEROID, SPINE, LUMBAR, EPIDURAL, SINGLE 10:47:00 Nura Flores POC GLUCOSE 2019-04-11 10:21:00 Nura Flores INHALANTS, SW COMPREHENSIVE PANEL 2 2019-03-31 15:42:00 Jacob Mcclelland B NATRIURETIC PEPTIDE 2019-03-31 15:42:00 Jacob Mcclelland on Yazidism ASPERGILLUS AB BY CF, SERUM 2019-03-31 15:42:00 omerJacob ANTI-NEUTROPHILIC CYTOPLASMIC ABS PANEL 2019-03-31 15:42:00 Truro riccardo, Jacob Lomeli EOSINOPHIL COUNT ABSOLUTE 2019-03-31 15:42:00 aJcob Mcclelland POC GLUCOSE 2019-03-21 12:40:00 Nura Flores OR [place] < 1 HOUR 2019-03-21 12:10:00 Nura Flores INJECTION, STEROID, SPINE, LUMBAR, EPIDURAL, SINGLE 11:54:00 Nura Flores POC GLUCOSE 2019-03-21 09:53:00 Nura Flores MRI LUMBAR SPINE W WO CONTRAST 2019-03-09 13:35:00 Sandra, Will esteban Ranjit Lomeli ECG 12-LEAD 2019-01-30 21:01:00 Cody Negron HC COMPLETE BLD COUNT W/AUTO DIFF 2019-01-30 20:22:00 Cody Negron PROTHROMBIN TIME WITH INR 2019-01-30 20:22:00 Benny Negron COMPREHENSIVE METABOLIC PANEL 2019-01-30 20:22:00 Cody Negron TROPONIN 2019-01-30 20:22:00 Cody Negron B NATRIURETIC PEPTIDE 2019-01-30 20:22:00 Cody Negron ESTIMATED GFR 2019-01-30 20:22:00 Cody Negron XR CHEST 2 VW 2019-01-30 19:37:51 Cody Negron ECG ED PRELIMINARY INTERPRETATION 2019-01-30 18:43:31 Cody Negron XR HIP 2-3 VIEWS LEFT 2019-01-11 11:18:17 Nura Flores Plan of Care Planned Activity Planned Date Details Comments Source Future Scheduled Test 2028-03-02 00:00:00 COLONOSCOPY SCREEN ING [code = COLONOSCOPY SCREENING] [facility] Future Scheduled Test 2022-07-31 00:00:00 DXA SCAN [code = DXA SCAN ] [facility] Future Scheduled Test 2021-11-09 00:00:00 DIABETES: RETINAL EYE EXAM [code = DIABETES: RETINAL EYE EXAM] [facility] Future Scheduled Test 2021-04-22 00:00:00 BREAST CANCER SCRE ENING [code = BREAST CANCER SCREENING] [facility] Future Scheduled Test 2020-04-14 00:00:00 65+ PNEUMOCOCCAL V ACCINE (2 of 2 - PPSV23) [code = 65+ PNEUMOCOCCAL VACCINE (2 of 2 - PPSV23)] [facility] Future Scheduled Test 2020-04-14 00:00:00 DIABETIC FOOT EXAM [code = DIABETIC FOOT EXAM] [facility] Future Scheduled Test 2020-04-14 00:00:00 SHINGLES VACCINES (#1) [code = SHINGLES VACCINES (#1)] Postponed from 02/04/2002 (Insurance / Financial) [facility] Future Scheduled Test 2019-10-01 00:00:00 INFLUENZA VACCINE [code = INFLUENZA VACCINE] Aragon [facility]ism Encounters Start Date/Time End Date/Time Encounter Type Admission Type Attendi [facility] Care Department Encounter ID Source 2019-12-13 00:00:00 2019-12-13 00:00:00 Outpatient SANDRA[facility] [id number] Nora [facility] 2019-12-08 00:00:00 2019-12-08 00:00:00 Outpatient SANDRA, [facility] [id number] Nora [facility] 2019-12-07 00:00:00 2019-12-07 00:00:00 Outpatient SANDRA, [facility] [id number] Nora [facility] 2019-12-02 00:00:00 2019-12-02 00:00:00 Outpatient SANDRA, WILL [facility] [id number] Nora [facility] 2019-12-01 00:00:00 2019-12-01 00:00:00 Outpatient SANDRA, WILL [facility] [id number] Aragon [facility] 2019-11-23 00:00:00 2019-11-23 00:00:00 Outpatient SANDRA, [facility] [id number] Aragon [facility] 2019-11-22 00:00:00 2019-11-22 00:00:00 Outpatient IKE FONTANA [facility] [id number] Aragon [facility] 2019-11-18 00:00:00 2019-11-18 00:00:00 Outpatient SANDRA, [facility] [id number] Aragon Y[facility]ism 2019-11-16 00:00:00 2019-11-16 00:00:00 Outpatient SANDRA, [facility] [id number] Aragon [facility] 2019-11-04 00:00:00 2019-11-04 00:00:00 Outpatient VITTONE, ROLANDA JOSE [facility] [id number] [facility] 2019-11-04 00:00:00 2019-11-04 00:00:00 Outpatient ABDELLATIF, A BDUL [facility] [id number] [facility] 2019-11-04 00:00:00 2019-11-04 00:00:00 Outpatient VITTONE, ROLANDA JOSE [facility] [id number] Aragon [facility] 2019-10-28 00:00:00 2019-10-28 00:00:00 Outpatient IKE FONTANA [facility] [id number] Nora [facility] 2019-10-18 00:00:00 2019-10-18 00:00:00 Outpatient IKE FONTANA [facility] [id number] Aragon [facility] 2019-10-18 00:00:00 2019-10-18 00:00:00 Outpatient ABDELLAGERARD, A BDUL [facility] [id number] Aragon [facility] 2019-10-12 00:00:00 2019-10-12 00:00:00 Outpatient SANDRA, WILL ESTEBAN [facility] [id number] Aragon [facility] 2019-10-12 00:00:00 2019-10-12 00:00:00 Outpatient VITTONE ROLANDA JOSE [facility] [id number] Aragon [facility] 2019-10-11 00:00:00 2019-10-11 00:00:00 Outpatient SANDRA, WILL ESTEBAN [facility] [id number] Nora [facility] 2019-10-10 00:00:00 2019-10-10 00:00:00 Outpatient IKE FONTANA [facility] [id number] Nora [facility] 2019-10-05 00:00:00 2019-10-05 00:00:00 Outpatient Arlene AYALA [facility] [id number] [facility] 2019-10-04 00:00:00 2019-10-04 00:00:00 Outpatient SANDRA, WILL ESTEBAN [facility] [id number] Nora [facility] 2019-09-30 00:00:00 2019-09-30 00:00:00 Outpatient SANDRA, [facility] [id number] Nora [facility] 2019-09-28 00:00:00 2019-09-28 00:00:00 Outpatient ADELA IKE [facility] [id number] [facility]ora [facility] 2019-09-28 00:00:00 2019-09-28 00:00:00 Outpatient ROLANDA CARPENTER [facility] [id number] [facility] 2019-09-27 00:00:00 2019-09-27 00:00:00 Outpatient SANDRA, WILL ESTEBAN [facility] [id number] Nora [facility] 2019-09-22 00:00:00 2019-09-22 00:00:00 Outpatient SANDRA, [facility] [id number] Nora [facility] 2019-09-15 00:00:00 2019-09-18 00:00:00 Inpatient MILTON BARRETT [facility] [id number] Nora [facility] 2019-09-15 00:00:00 2019-09-15 00:00:00 Outpatient ADELA IKE [facility] [id number] Nora [facility] 2019-09-12 00:00:00 2019-09-12 00:00:00 Outpatient ADELA IKE [facility] [id number] Nora [facility] 2019-08-30 00:00:00 2019-08-30 00:00:00 Outpatient SANDRA, WILL ESTEBAN [facility] [id number] Nora [facility] 2019-08-23 00:00:00 2019-08-23 00:00:00 Outpatient IKE FONTANA [facility] [id number] [facility] 2019-08-23 00:00:00 2019-08-23 00:00:00 Outpatient IKE FONTANA [facility] [id number] Nora [facility] 2019-08-10 00:00:00 2019-08-10 00:00:00 Outpatient IKE FONTANA [facility] [id number] [facility] 2019-08-10 00:00:00 2019-08-10 00:00:00 Outpatient Chris MARIA [facility] [id number] [facility] 2019-08-09 00:00:00 2019-08-09 00:00:00 Outpatient IKE FONTANA [facility] [id number] Nora [facility] 2019-08-09 00:00:00 2019-08-09 00:00:00 Outpatient IKE FONTANA [facility] [id number] Nora [facility] 2019-08-09 00:00:00 2019-08-09 00:00:00 Outpatient IKE FONTANA [facility] [id number] Nora [facility] 2019-08-08 00:00:00 2019-08-08 00:00:00 Outpatient SANDRA, WILL ESTEBAN [facility] [id number] Nora [facility] 2019-08-05 00:00:00 2019-08-05 00:00:00 Outpatient SANDRA, [facility] [id number] Nora [facility] 2019-08-01 00:00:00 2019-08-01 00:00:00 Outpatient SANDRA, WILL [facility] [id number] Nora [facility] 2019-07-29 00:00:00 2019-07-29 00:00:00 Outpatient SANDRA, WILL [facility] [id number] Nora [facility] 2019-07-29 00:00:00 2019-07-29 00:00:00 Outpatient IKE FONTAAN [facility] [id number] Nora [facility] 2019-07-28 00:00:00 2019-07-28 00:00:00 Outpatient SANDRA, WILL [facility] [id number] Nora [facility] 2019-07-27 00:00:00 2019-07-27 00:00:00 Outpatient DRAKE MORGAN [facility] [id number] [facility] 2019-07-26 00:00:00 2019-07-26 00:00:00 Outpatient IKE FONTANA [facility] [id number] Nora [facility] 2019-07-22 00:00:00 2019-07-22 00:00:00 Outpatient SANDRA, WILL [facility] [id number] Nora [facility] 2019-07-20 00:00:00 2019-07-20 00:00:00 Outpatient SANDRA, WILL ESTEBAN [facility] [id number] Nora [facility] 2019-07-18 00:00:00 2019-07-18 00:00:00 Outpatient SANDRA, WILL [facility] [id number] Nora [facility] 2019-07-15 00:00:00 2019-07-15 00:00:00 Outpatient SANDRA, WILL [facility] [id number] Nora [facility] 2019-07-13 00:00:00 2019-07-13 00:00:00 Outpatient ROLANDA CARPENTER [facility] [id number] [facility] 2019-07-07 00:00:00 2019-07-07 00:00:00 Outpatient IKE FONTANA [facility] [id number] [facility] 2019-06-13 00:00:00 2019-06-13 00:00:00 Outpatient SANDRA, WILL [facility] [id number] Nora [facility] 2019-05-09 00:00:00 2019-05-09 00:00:00 Outpatient COLOMER, ALBE RTO [facility] [id number] Nora [facility] 2019-05-09 00:00:00 2019-05-09 00:00:00 Outpatient COLOMER, ALBE RTO [facility] [id number] Nora [facility] 2019-05-09 00:00:00 2019-05-09 00:00:00 Outpatient COLOMER, ALBE RTO [facility] [id number] Nora [facility] 2019-05-09 00:00:00 2019-05-09 00:00:00 Outpatient SANDRA, WILL [facility] [id number] Nora [facility] 2019-04-29 00:00:00 2019-04-29 00:00:00 [id number] Nora Yazidism 2019-04-28 00:00:00 2019-04-28 00:00:00 Outpatient [facility] [id number] Nora [facility] 2019-04-28 00:00:00 2019-04-28 00:00:00 Outpatient MAT STEVENS [facility] [id number] Nora [facility] 2019-04-26 00:00:00 2019-04-26 00:00:00 Outpatient SANDRA, WILL ESTEBAN [facility] [id number] Nora [facility] 2019-04-22 00:00:00 2019-04-22 00:00:00 Outpatient ROLANDA CARPENTER [facility] [id number] [facility] 2019-04-22 00:00:00 2019-04-22 00:00:00 Outpatient IKE FONTANA [facility] [id number] Nora [facility] 2019-04-11 00:00:00 2019-04-11 00:00:00 [id number] Nora [facility] 2019-03-21 00:00:00 2019-03-21 00:00:00 [id number] Nora [facility] 2019-03-09 00:00:00 2019-03-09 00:00:00 Outpatient SANDRA, WILL ESTEBNA [facility] [id number] Nora [facility] 2019-01-30 00:00:00 2019-01-30 00:00:00 Emergency [facility]ER U [facility] 064 [id number] Nora Yazidism 2019-01-23 13:09:00 2019-01-23 15:09:00 Departed Emergency Room 1 NURA DOVE [facility] [id number] [facility] Results Test Description Test Time Test Comments Results Result Comments Source POC glucose 2019-09-18 05:47:44 Test Item POC glucose (test code = 08360-0) 157 mg/dL 65-99 H 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 Name: Gloria Vasquez ID: [id number] Lab Interpretation (test code = 58114-4) Abnormal Nora MethodistBasic metabolic mykjb5211-78-30 15:26:48* Test Item Value Reference Range Interpretation Comments Sodium (test code = 2951-2) 131 135- 148 mEq/L L Potassium (test code = 2823-3) 4.5 3.5- 5.0 mEq/L Chloride (test code = 2075-0) 97 98- 112 mEq/L L CO2 (test code = 2028-9) 28 24- 31 mEq/L Anion gap (test code = 51974-3) 6@ANIO 7- 15 mEq/L L BUN (test code = 3094-0) 14 mg/dL 8-23 Creatinine (test code = 2160-0) 0.80 mg/dL 0.5-0.9 Glucose (test code = 2345-7) 146 mg/dL 65-99 H Calcium (test code = 14389-0) 9.5 mg/dL 8.8-10.2 Lab Interpretation (test code = 44834-9) Abnormal Nora MethodistCortisol level, pfcgnr7092-22-63 12:30:50* Test Item Value Reference Range Interpretation Comments Cortisol, random (test code = 2143-6) 3 ug/dL Reference Ranges are not established for non-timed Cortisol levels.Reference Range for Timed Cortisol: 6 - 10 AM 6 - 18 ug/dl 4 - 8 PM 3 - 11 ug/dl Nora MethodistECG 12 hepc0583-34-16 10:20:22* Test Item Value Reference Range Interpretation Comments Ventricular rate (test code = 253) 81 Atrial rate (test code = 255) 81 LA interval (test code = 266) 160 QRSD interval (test code = 260) 94 QT interval (test code = 264) 368 QTC interval (test code = 265) 427 P axis 1 (test code = 267) 73 QRS axis 1 (test code = 268) 54 T wave axis (test code = 270) 83 EKG impression (test code = 273) Normal sinus rhythm-N ormal ECG-In automated comparison with ECG of 14-APR-2019 11:17,-No significant change was found- Nora MethodistUric acid [id number] 07:58:05* Test Item Value Reference Range Interpretation Comments Uric acid (test code = 3084-1) 5.9 mg/dL 2.4-5.7 H Lab Interpretation (test code = 71975-1) Abnormal Mahesh MethodistCOVID-19 qualitative [id number] 07:16:28* Test Item Value Reference Range Interpretation Comments Interpretation (test code = 3947550) Negative results do not preclude 2019-nCoV infection and should not be used as the sole basis for treatment or other patient management decisions. Negative results must be combined with clinical observations, patient history, and epidemiological information. COVID-19 qualitative PCR result (test code = 99708-9) Not-Detect ed Not-Detected COVID-19 qualitative PCR (test code = 7070) See link below for P DF Lab Report Mahesh MethodistCT Abdomen Pelvis W Ypvoiazn5060-64-68 16:47:36Hm Interface, Radiology Results 08/10/2019 4:50 PM CDTEXAMINATION: CT ABDOMEN PELVIS W CONTRASTCLINICAL HISTORY: K74.60 Unspecified cirrhosis of liver, Abd distensionTECHNIQUE: Multiple axial images of the abdomen and pelvis were obtained following intravenous administration of iodinated contrast. Sagittal and coronal computerized reformatted images were also obtained. All CT images were acquired using low-dose technique with automated exposure control.COMPARISO N: April 20, 2018FINDINGS:Abdomen:1.Cirrhotic liver. The spleen is borderlin e in size measuring 12 to 13 cm. Low-attenuation lesion in the right hepatic lob e measures 8 mm best demonstrated on image 47 of series 2 in segment 5. Stable c eliac lymph nodes measuring up to 11 x 8 mm.2.The portal vein, SMV, and splenic vein are patent. Recanalized parent vein. The abdominal aorta is of normal calib er.3.The pancreas, adrenal glands and kidneys are normal. No hydronephrosis.4.Ch olecystectomy.5.Large and small bowel loops are of normal caliber. The appendix is normal.Pelvis:1.The bladder is normal.2.No pelvic lymphadenopathy.3.There are degenerative changes involving lower lumbar spine.4.No ascites.IMPRESSION:1.Cir rhosis. 8mm vaguely defined low-attenuation lesion in the right hepatic lobe. Co rrelation with MRI findings may be of benefit.2.No ascites.[facility]-Madan Christie Abdominal [id number] 16:04:11 Interface, Radiology Results 08/10/2019 4:07 PM CDTEXAMINATION: US ABDOMINAL LIMITEDCLINICAL HISTORY: K74.60 Unspecified cirrhosis of liver, R60.0 Localized edema, ASCITESCOMPARISON: None.TECHNIQUE: Limited abdominal ultrasound was performed to evaluate for ascites.IMPRESSION:No ascites identified in any of the 4 quadrants. Thus, a paracentesis was not performed.[facility]-[id number] WowekcdadMWJT3380-57-99 11:26:22* Test Item Value Reference Range Interpretation Comments IgG (test code = 2465-3) 1126 mg/dL 700-1600 IgA (test code = 2458-8) 349 mg/dL 70-400 IgM (test code = 2472-9) 115 mg/dL 33-255 [facility] HospitalNoskoqrzcLIT5520-27-14 11:26:21* Test Item Value Reference Range Interpretation Comments GGT (test code = 2324-2) 35 U/L 0-[facility] time, ufnrdxbcc6812-12-68 11:11:49* Test Item Value Reference Range Interpretation Comments PTT (test code = 99134-1) 32.0 23.0- 36.0 sec PTT therapeutic range for unfractionated heparin is61.0-112.0 seconds which corresponds to Anti-Xa0.3-0.7 U/ml. [facility] HospitalMammo Breast Screen Tomosynthesis Eexyhuxpi4966-25-06 14:00:51 PROCEDURE: MAMMO BREAST SCREEN TOMOSYNTHESIS BILATERAL Computer aided detection was utilized for the interpretation of the digital bilateral screening mammograp hy with tomosynthesis. COMPARISON: None available. INDICATION: Routine screening . FINDINGS: The breast tissue is predominantly fatty. Bilateral reduction mammop lasty changes are noted. No suspicious mass, calcification, architectural distor tion or asymmetry in either breast. IMPRESSION: No mammographic evidence of mal ignancy. RECOMMENDATION: Annual screening mammogram. BI-RADS 2: BENIGN [facility] is accredited by [employer] for Mammography. A neg ative x-ray report should not delay biopsy if a dominant or clinically suspiciou s mass is present. Not all cancers are identified by x-ray. [id number] Nora MethodrustTransthoracic Echocardiogram Complete, (w Contrast, Strain and 3D if needed)2019-05-09 14:44:00Interface, Radiology Results In - 05/09/2019 2:44 PM CDT Echocardiography Report [id number] [address] Pat.Name: ARCHANA MARTIN.ID: [id number] .Date: 05/09/2019 Refer.MD: JACOB MCCLELLAND MD Exam Time: 9:01:00 AM Study Type:Routine Echo Height: 65in Weight: 195lb BSA: 1.96 m2 Age: 12 1950,69Y Sex: FEMALE BP: 114/55 HR: 83 bpm Sonogrphr: PAULO Johnson, [facility] Pat. Stat.:Outpatient Room: [facility] 16 - Imagine Study Status:Final Echo Event ID:[id number] Order ID: [id number] Reason for Study:DYSPNEA AND RESPIRATORY ABNORMALITIESProcedures: 2D Echo, Colorflow Doppler SUMMARY:------ LV EF is hyperdynamic.RV systolic function is norm al.Normal diastolic function and LV filling pressures.Estimated PA systolic pres sure is 25 mmHg, assuming a mean RAP of 5mmHg. --FINDINGS: LV: LV size is normal. LV E F is hyperdynamic. Overall wall motion is normal. Estimated EF is > 70%. Septal motion is paradoxical.RV: RV size is normal. RV systo lic function is normal.LA: LA size is normal.RA: RA size is normal.A O: Aortic root diameter is normal.DAVIN: No pericardial effusion.AV: No structural AV abnormalities noted.MV: No structural MV abnormalities noted.PV: No structural PV abnormalities noted.TV: No structural TV abnormalities noted. A trace of tricuspid regurgitation Valdes: Nor mal diastolic function and LV filling pressures.Other: Estimated PA systolic pressure is 25 mmHg, assuming a mean RAP of 5 mmHg. MEASUREMENTS: 2DParasternal Long [place] Ao An 2.6 cm L VPWd 1 cm Ao Rtd 3.5 cm Index 1.8 cm/ m2 LA Ds 4 cm IVSd 0.83 cm RWT 0.42 LVIDd 4.8 cm Index 2.5 cm/m2 LV Mass 156 g (87-129) LVIDs 2.3 cm LVM Index 79 g/m2 LV%fs 52 % LVOT 2.3 cm LA Sng Plane LA Area 15 cm2 (8.8-23.4) LA Vol 39 m l Index 20 ml/m2 LA LngAx 4.8 cm RA Sng Plane RA Vol 18 ml Index 9.1 ml/m2 RA LngAx 4.3 cm RA Area 9.3 cm2 (8.3-19.5)LVOT LVOT Area 4.3 cm2 DOPPLERLVOT Stroke Vol LVOT TVI 21 cm HR 80 bpm LVOT LVOT SV 91 ml LVOT CO 7.3 l/min SVi 46 ml/m2 LVOT CI 3.7 l/m/m2 MMODETricuspid Valve TAPSE 2.4 cm Signed 05/09/2019 02:44 PMMerrick Levin M.D.[facility] Esophagram Double Dguqrbcr7860-36-35 13:08:37Hm Interface, Radiology Results 05/09/2019 1:11 PM CDTEXAMINATION: [place] ESOPHAGRAM DOUBLE CONTRASTCLINICAL HISTORY: R05 Cough, CHRONIC COUGHCOMPARISON: None.Fluoroscopy time: 1 min. 14 images obtained.TECHNIQUE: Barium and effervescent crystals administered by mouth. Patient imaged in the upright and prone GI positions.FINDINGS: Mild impairment of the primary wave with a few intermittent tertiary contractions observed. Esophagus demonstrates no mass or stricture. No hiatal hernia or gastroesophageal reflux observed. IMPRESSION:Presbyesophagus, otherwise unremarkable. OPC-[id number] MethodistCT Chest Wo Contrast 2019-05-09 11:29:37Hm Interface, Radiology Results 05/09/2019 11:32 AM CDTEXAMINATION: CT CHEST WO CONTRASTCLINICAL HISTORY: 69 years Female R05 Cough, CHRONIC COUGHTECHNIQUE: Multiple axial images of the chest were obtained without intravenous contrast. Sagittal and coronal computerized reformatted images were also obtained. CT imaging was performed with iterative reconstruction techniques and/or automated exposure control to reduce radiation dose. COMPARISON:To a previous examination from 04/20/2018IMPRESSION:Lungs and airways: No acute airspace disease or suspicious pulmonary nodules. Pleura: No pleural effusion or pneumothorax.Mediastinum and lymph nodes: No lymphadenopathy. Cardiovascular: The heart size is normal. No pericardial effusion. The thoracic aorta is normal in caliber.Upper abdomen: No suspicious abnormalities.Bones: No suspicious osseous lesions. Other: None .SUMMARY:1.Negative examinationOHIOHEALTH-[id number] MethodistOR [place] < 1 Hour 2019-05-02 19:05:15Hm Interface, Radiology Results 05/02/2019 7:08 PM CSTEXAMINATION: OR FL < 1 HOURC-arm fluoroscopy was requested in OR. OPC19 OR ROOM: 2PROCEDURE: Caudal epidural steroid injectionSTART TIME: 1200END TIME: 1225FLUORO TIME: 12 SECSDOSAGE: 10.48 mGyTECH: JMIMPRESSION:Separate operative report will be issued by the physician performing the procedure.[id number] Nora MethodistUS Abdomen Gqqtgxwf5552-65-40 11:23:15Hm Interface, Radiology Results 04/22/2019 11:26 AM CSTEXAM: US ABDOMEN COMPLETECLINICAL DATA: K74.60 Unspecified cirrhosis of liver, K72.90 Hepatic failure unspecified without coma, Cirrhosis or Fatty LiverCOMPARISON: None.FINDINGS:A complete abdominal ultrasound was performed.LIVER: The liver is cirrhotic. No focal mass present. No intrahepatic biliary dilation.GALBLADDER/CBD: Prior cholecystectomy. The common bile duct is normal in diameter at 6 mmPORTAL VEIN: .The main portal vein is patent with hepatopedal flow. RETROPERITONEUM: The v isualized pancreas, abdominal aorta, and IVC are unremarkable SPLEEN: The spleen is normal.KIDNEYS: The kidneys are normal in size and echogenicity without sto ellie or hydronephrosis. A dromedary hump present in the left kidney.OTHER: There is no ascites. There is no pleural effusion.IMPRESSION: Cirrhosis without the li capo mass.No acute sonographic abnormality.[id number] [facility] Vitamin B12 [id number] 18:30:00* Test Item Value Reference Range Interpretation Comments Vitamin B12 (test code = 2132-9) 663 pg/mL 200-1100 BERTHA (test code = BERTHA) FASTING:NOFASTING: NO RAC (test code = RAC) Performing Organization Info rmation: Site ID: [id number] Address: [address] [place] [id number] Director: Gregorio Jesus Nora MalachiistVitamin D 25 hydroxy [id number] 18:30:00* Test Item Value Reference Range Interpretation Comments Vitamin D, 25-hydroxy (test code = 1989-3) 35 ng/mL 30-100 Vitamin D Status 25-OH Vitamin D: Deficiency: <20 ng/mLInsufficiency: 20 - 29 ng/mLOptimal: > or = 30 ng/mL For 25-OH Vitamin D testing on patients on D2-supplementation and patients for whom quantitation of D2 and D3 fractions is required, the QuestAssureD(TM)25-OH VIT D, (D2,D3), LC/MS/MS is recommended: order code 24259 (patients >2yrs). For more information on this test, go to:http://education.Unype/faq/HXU026(This link is being provided for informational/educational purposes only.) BERTHA (test code = BERTHA) FASTING:NOFASTING: NO RAC (test code = RAC) Performing Organization Info rmation: Site ID: [id number] [facility]: [facility] Address: [address] [place] [id number] Director: Gregorio LomeliZinc level, [id number] 18:30:00* Test Item Value Reference Range Interpretation Comments Zinc (test code = 5763-8) 76 60- 130 mcg/dL This test was developed and its analytical performance characteristics have been determined by [facility]. It has not been cleared or approved by theA. This assay has been validated pursuant to the CLIA regulations and is used for clinical purposes. BERTHA (test code = BERTHA) FASTING:NOFASTING: NO RAC (test code = RAC) Performing Organization Info rmation: Site ID: [id number] [facility]: [facility] Address: [address] [place] [address] Director: Christopher Smith M.D., Ph.D Nora MethodistSSA/SSB [id number] 18:30:00* Test Item Value Reference Range Interpretation Comments Sjogren's SS-A antibody (test code = 83084-0) <1.0 NEG <1.0 NEG AI Sjogren's SS-B antibody (test code = 65815-6) <1.0 NEG <1.0 NEG AI BERTHA (test code = BERTHA) FASTING:NOFASTING: NO RAC (test code = RAC) Performing Organization Info rmation: Site ID: [id number] [facility] Address: [address] [place] [address] Director: Dr. Gregorio Aragon MethodistMicroalbumin, urine, [id number] 18:30:00* Test Item Value Reference Range Interpretation Comments Microalbumin, urine (test code = 27978-3) 0.2 mg/dL See Note: Reference Range:Reference RangeNot established NATALIE (test code = 8251-1) Th e ADA defines abnormalities in albuminexcretion as follows: Category Result (mcg/mg creatinine) Normal <30Microalbuminuria 30-299 Clinical albuminuria > OR = 300 The ADA recommends that at least two of threespecimens collected within a 3-6 month period beabnormal before considering a patient to bewithin a diagnostic category. BERTHA (test code = BERTHA) FASTING:NOFASTING: NO RAC (test code = RAC) Performing Organization Info rmation: Site ID: RGA [facility]: [facility] Address: [address] [place] [address] Director: Gregorio Aragon MethodistURINALYSIS, COMPLETE, WITH REFLEX TO [id number] 18:30:00 * Test Item Value Reference Range Interpretation Comments Color, UA (test code = 5778-6) YELLOW YELLOW Appearance (test code = 5767-9) CLEAR CLEAR Specific gravity, urine (test code = 5811-5) 1.009 1.001-1.0 35 pH, urine (test code = 5803-2) 7.0 5.0-8.0 Glucose, urine (test code = 27072-6) NEGATIVE NEGATIVE Bilirubin, UA (test code = 5770-3) NEGATIVE NEGATIVE Ketones, UA (test code = 2514-8) NEGATIVE NEGATIVE Occult blood, urine (test code = 5794-3) NEGATIVE NEGATIVE Protein, UA (test code = 51373-9) NEGATIVE NEGATIVE Nitrite, UA (test code = 5802-4) NEGATIVE NEGATIVE Leukocyte esterase, UA (test code = 5799-2) NEGATIVE NEGATIVE WBC, UA (test code = 5821-4) NONE SEEN < OR = 5 /HPF RBC, UA (test code = 02350-8) 0-2 < OR = 2 /HPF Squamous epithelial cells, UA (test code = 87561-0) 0-5 < OR = 5 /HPF Bacteria, UA (test code = 5769-5) NONE SEEN NONE SEEN /HPF Hyaline casts, UA (test code = 5796-8) NONE SEEN NONE SEEN /LPF Reflex (test code = 630-4) NO CULTURE INDICATED BERTHA (test code = BERTHA) FASTING:NOFASTING: NO RAC (test code = RAC) Performing Organization Info rmation: Site ID: RGA Name: [facility] Address: [address] [place] [id number] Director: Gregorio LomeliJames B. [facility]gin [facility] Retinal [id number] 15:15:06* Test Item Value Reference Range Interpretation Comments Highest observation value (test code = 5835) ALERT A Right eye diabetic retinopathy (test code = 5834) None Iris right eye macular edema (test code = 5839) None Right eye other retinopathy (test code = 5840) Suspect ed Glaucoma, Suspected Dry AMD A Right eye image quality (test code = 5841) Gradable Image Left eye diabetic retinopathy (test code = 5842) None Left eye macular edema (test code = 5843) None Left eye other retinopathy (test code = 5844) Suspecte d Glaucoma, Suspected Dry AMD A Left eye image quality (test code = 5845) Gradable Image PXN (test code = PXN) Interface, Ancillary Resu lts - 04/14/2019 3:16 PM CSTRetinal Study Result for ARCHANA MARTIN, arlene 69 y/o, F (: 1950, ) presented to [facility] 1948 on 04-14-2019 for a retinal imaging study of the left and right eyes. Based on the findings of the study, the following is recommended for ARCHANA MARTIN Glaucoma Suspected: Refer patient to ophthalmology. Advise appointment needed as soon as possible for suspicion of glaucoma. Interpreting Provider's Comments: No comments provided Right eye findings: Negative for Diab etic Retinopathy.Other: Suspected GlaucomaOther: Suspected Dry AMD Left eye findings: Negative for Diabetic Retinopathy.Other: Suspected GlaucomaOther: Suspected Dry AMD This result was electronically signed by Trung Bashir MD, , Taxonomy: [id number] on 04-14-2019 09:15:06 [facility] time.NOTE: Any pathology noted on this diabetic retinal evaluation should be confirmed by an appropriate ophthalmic examination. Lab Interpretation (test code = 17653-9) Abnormal [facility] glycosylated hemoglobin (Hb A1C)2019-04-14 11:24:00* Test Item Value Reference Range Interpretation Comments POC Hemoglobin A1C (test code = 9606684) 7.1 % [facility] comprehensive panel [id number] 01:16:20* Test Item Value Reference Range Interpretation Comments Pecan hickory tree (test code = 6209-1) <0.10 <=0.34 Newell tree (test code = 6263-8) <0.10 <=0.34 Chilean plantain (test code = 6110-1) <0.10 <=0.34 Rough pigweed (test code = 7604-2) <0.10 <=0.34 Common ragweed (test code = 6085-5) <0.10 <=0.34 Pakistani thistle (test code = 6234-9) <0.10 <=0.34 Rough marshelder (test code = 7484-9) <0.10 <=0.34 Aspergillus tenuis (test code = 67444-2) <0.10 <=0.34 Aspergillus fumigatus (test code = 6025-1) <0.10 <=0.34 Bahia grass (test code = 6034-3) <0.10 <=0.34 Bermuda grass (test code = 6041-8) <0.10 <=0.34 Bruce grass (test code = 6265-3) <0.10 <=0.34 Bo grass (test code = 6152-3) <0.10 <=0.34 White christiano tree (test code = 6278-6) <0.10 <=0.34 Mountain cedar tree (test code = 6178-8) <0.10 <=0.34 Privet tree (test code = 7632-3) <0.10 <=0.34 Elm tree (test code = 6109-3) <0.10 <=0.34 Hormodendrum hordei (test code = 7415-3) <0.10 <=0.34 Helminthosporium (test code = 6138-2) <0.10 <=0.34 D. farinae (test code = 6095-4) <0.10 <=0.34 D. pteronyssinus (test code = 6096-2) <0.10 <=0.34 Cat dander (test code = 6833-8) <0.10 <=0.34 Dog dander (test code = 6098-8) <0.10 <=0.34 Live/Yesica oak (test code = 6164-8) <0.10 <=0.34 INTERPRETIVE INFORMATION: Allergen, Yesica Live OakTest developed and characteristics determined by [facility]. See Compliance Statement A: [email or web address]/ Immunocap score (test code = 03279-2) See Note REFERENCE INTERVAL: Allergen, Interpretation Less than 0.10 kU/L......Class 0.....No significant level detected 0.10-0.34 kU/L...........Class 0/1...Clinical relevance undetermined 0.35-0.70 kU/L...........Class 1.....Low 0.71-3.50 kU/L...........Class 2.....Moderate 3.51-17.50 kU/L..........Class 3.....High 17.51-50.00 kU/L.........Class 4.....Very High 50.01-100.00 kU/L........Class 5.....Very Hig h Greater than 100.00kU/L..Class 6.....Very HighAllergen results of 0.10-0.34 kU/L are intended for [...] not rule out clinical allergy or even anaphylaxis.Performed by [facility] [facility] [place] [address] zrr.[employer], Rigo Milton MD, Lab. Director Mahesh LyistAspergillus Ab by CF, [id number] 16:59:38* Test Item Value Reference Range Interpretation Comments Aspergillus Ab CF (test code = 5053-4) <1:8 <1:8 INTERPRETIVE INFORMATION: Aspergillus Antibody by Complement Fixation (CF)Cross- reactions with dimorphic fungi are not unusual within the genus Aspergillus. A negative test does not exclude infection, especially in immuno- compromised patients. Best use of test is with paired sera taken three weeks apart to detect a rise in titer against a single antigen.Performed by [facility],[address] [facility] [place] [address] lcu.[employer], Rigo Milton MD, Lab. Director Mahesh LyistAnti-neutrophilic cytoplasmic Abs [id number] 15:34:56* Test Item Value Reference Range Interpretation Comments ANCA screen (test code = 3472) Negative Negative Nora MethodistB natriuretic [id number] 17:10:20* Test Item Value Reference Range Interpretation Comments BNP (test code = 82774-2) 12 pg/mL 0-100 Aragon MethodistEosinophil count [id number] 16:35:10* Test Item Value Reference Range Interpretation Comments Eosinophils, absolute (test code = 711-2) 0.30 K/uL 0-0.55 Mahesh MethodistMRI Lumbar Spine W Wo [id number] 14:23:45Hm Interface, Radiology Results - 03/09/2019 2:26 PM CSTEXAMINATION: MRI LUMBAR SPINE W WO CONTRASTCLINICAL HISTORY: Z98.890 Other specified postprocedural states, back painCOMPARISON: February 15, 2018.TECHNIQUE: Multiplanar mul tisequence pre and post contrast enhanced examination was performed of the Lumba r spine.FINDINGS: Postsurgical changes are again seen from spinal laminectomy th at spans L4-L5 and L5-S1 levels. Previously seen large fluid collection in the l aminectomy bed has now resolved. There is small amount of enhancement in the mendoza inectomy bed and within the L3-L4 interspinous region that is likely reactive in nature. There is prominent enhancement, Modic type 1 edema along the endplates of L3 and L4 due to Schmorl's node formation that is progressed since the prior study. No disc enhancement is seen. Morphology is compatible with degenerative change.No other sites of abnormal signal to suggest marrow edema. There is no lockett spicious intraosseous lesions.Vertebral body heights are maintained. There is mi ld effacement of the lumbar lordosis. No spondylolisthesis is appreciated at any level.Distal thoracic cord/conus is normal in morphology and signal characteris tics. Conus is seen to terminate at L1-L2. Cauda equina nerve roots are normal i n morphology. No abnormal enhancement is seen within the nerve roots itself. Fat ty prominence of the filum terminale is seen, incidentally noted.Pre and paraspi nal soft tissues are otherwise unremarkable with the exception of the laminectom y bed enhancement as indicated above.There are diffuse degenerative changes with diffuse disc desiccation. Changes by individual levels described below.At L1-L2, diffuse disc bulge is present. No significant spinal canal narrowing. Mild-to- moderate right neural foraminal narrowing. No left neural foraminal narrowing.At L2-L3, diffuse disc bulge is present. No significant spinal canal narrowing is seen. There is mild to moderate right neural foraminal narrowing. Mild left neur al foraminal narrowing.At L3-L4, as indicated above Modic type I end plate edema , endplate Schmorl's node formation and enhancement due to degenerative disease is seen. There is a diffuse disc bulge, ligamentum flavum thickening and facet a rthrosis. This results in severe spinal canal narrowing that has progressed sinc e February 15, 2018. There is moderate to severe right and moderate left neural foraminal narrowing.At L4-L5, diffuse disc bulge with a left lateral recess and foraminal disc protrusion, facet arthrosis and ligamentum flavum thickening. The re is a spinal laminectomy with mild residual spinal canal narrowing. Moderate r ight and severe left neural foraminal narrowing not significantly changed compar ed to prior study. Small enhancement in the laminectomy bed without significant epidural scar tissueAt L5-S1, diffuse disc bulge, central disc protrusion, facet arthrosis, spinal laminectomy. No spinal canal narrowing. Moderate to severe bi lateral neural foraminal narrowing, left more than right.S mall enhancement in t he laminectomy bed without significant epidural scar tissueIMPRESSION: -Spinal l aminectomy at L4-L5 and L5-S1 with resolution of previously seen fluid collectio n. Small amount of enhancing soft tissue in the laminectomy bed without signific ant epidural scar tissue. No recurrent high-grade spinal canal narrowing. Modera te to severe degrees of neural foraminal narrowing at L4-L5 and L5-S1, stable. - Progression of degenerative change at L3-L4 with severe spinal canal narrowing a nd moderate to severe right and moderate left neural foraminal narrowing.1WT-2UA [id number]. David'S Georgetown HospitalZwcgrwbtiBdolsoze5245-78-17 21:42:06* Test Item Value Reference Range Interpretation Comments Troponin (test code = 39734-9) <0.006 0-0.04 [place] changed methodology effective: 07/06/2018 at 10:00 amThe new method has a 99th percentile cutoff of 0.040 ng/mL Aragon YazidismXR Chest 2 [id number] 20:07:56Hm Interface, Radiology Results Incoming - 01/30/2019 8:11 PM CSTEXAMINATION:XR CHEST 2 VWCLINICAL HISTORY:CoughCOMPARISON:Portable chest, obtained on 02/19/2018 at 1646 hours.FINDINGS: Cardiac and mediastinal silhouettes are within normal limits. There is no vascular congestion, pleural fluid, infiltrate or pneumothorax. Skeletal structures are normal.IMPRESSION:Normal chest.[facility]N12ESTQRhesvsu [facility] [place] [facility] Preliminary Interpretation - Not an [id number] 18:43:31 Cody Negron MD 01/31/2019 2:47 [facility] Preliminary Interp retation - Not an OrderPerformed by: Cody Negron MDAuthorized by: Cody Negron MD ECG reviewed by ED Physician in the absenc e of a orthopedic nurse: yes ([phone]) Interpretation: Interpretation: normal Rate : ECG rate: 79 ECG rate assessment: normal Rhythm: Rhythm: sinus rhythm Ectopy: Ectopy: none QRS: QRS axis: Normal QRS intervals: NormalConducti on: Conduction: normal ST segments: ST segments: NormalT waves: T waves: normal [facility] 2 VIEW - [id number] 13:44:00 [place] [id number] Patient Name: ARCHANA MARTIN MR #: [id number] : 1950 Age/Sex: 68/F Req #: [id number] Adm Physician: Ordered by: NURA DOVE MD Report #: [id number] Location: [facility] Room/Bed: Procedure: [id number] HOPD/CXR 2 VIEW - HOPD Exam Date: 01/23/19 Exam Time : 1341 REPORT STATUS: Signed EXA MINATION: CXR 2 VIEW - HOPD INDICATION: Cough. COMPARISON: None FINDINGS: TUBES and LINES: None. LUNGS: Moderate lung volumes. Mild bronchial wall thickening. Mild patchy bibasilar opacities. No lobar co nsolidation. PLEURA: No pleural effusion or pneumothorax. HEART AND MEDIASTINUM: The cardiomediastinal silhouette is unremarkable. BONES A ND SOFT TISSUES: No acute osseous lesion. Soft tissues are unremarkable. UPPER ABDOMEN: No free air under the diaphragm. Surgical clips project over the upper abdomen. IMPRESSION: Mild bronchial wall thickening, which may represent bronchitis in the setting of cough. Mild patchy bibasilar opacities, likely atelectasis, although early pneumonia is possible in the appropriate clinical setting. Signed by: Dr. Steven Saravia MD on 01/23/2019 1:46 PM Dictated By: STEVEN SARAVIA MD 1346 Transcribed By: SHI on 01/23/19 1346 COPY TO: NURA DOVE MD NM BONE SPECT [id number] 13:05:12CLINICAL INDICATION: M47.817 Spondyls w/o myelopathy or radiculopathy, lumbosacr regionMODALITY: Discovery NM/CT 670TECHNIQUE: 25 mCi Tc 99m MDP are injected IV. After a suitable time delay, whole body imaging images were obtained. SPECT imaging of the lumbar spine is performed with computer and physician-assisted 2-D and 3-D reconstruction. Co-registered low dose limited diagnostic CT images are obtained at the level of SPECT imaging.Computed Tomography Dose Index: 5.44 mGy.FINDINGS:COMPARISON: Fusion CT exam.CT Comments: The gallbladder is surgic ally absent. Uterus is surgically absent..Symmetric bilateral renal function is observed.Mild to moderate periodontal uptake is noted within the maxilla.Mild ar thritic changes are seen at the acromioclavicular, glenohumeral, sternoclavicula r, wrist and hip joints. Mild to moderate medial compartment bilateral knee, mod erate left midfoot and moderate right first MTP joint uptake is seen.SPECT CT fu jorje images demonstrate moderate uptake to be present at the left lateral L4-5 i ntervertebral disc, moderate uptake at the right lateral L5-S1 intervertebral di sc. Mild to moderate left L5-S1 facet, mild bilateral L4-5 facet uptake is obser hardy as well.IMPRESSION:See comments above.PQRS 147: 3570F
[2020-01-08] MEDS ORDERED: IBUPROFEN 600 MG TAB ONE (14:57)
[2020-01-08] MEDS ORDERED: IBUPROFEN 200 MG TAB PO ONE (15:00)
--- NOTE | 2020-01-08 15:10 | Diagnostic Imaging Report ---
Shoulder 2 views CPT code: 38327 Indication:Fall 2010 days ago, anterior shoulder pain Comparison: Chest x-ray 01/23/2019. Findings: 2 views of the right shoulder were obtained. Bones are normally aligned. No fractures are identified. Mild degenerative changes of the AC joint. Mild degenerative changes of the glenohumeral joint. Adjacent ribs are intact. IMPRESSION: No acute fracture or dislocation. Mild degenerative changes as described above. Signed by: Dr. George Sultana MD on 01/08/2020 3:07 PM
--- NOTE | 2020-01-08 18:11 | Emergency Department Note ---
History of Present Illnes History of Present Illness Chief Complaint: Extremity Trauma/Pain History of Present Illness This is a 69 year old female presents with right shoulder pain. patient's shoes slipped on slick floor causing her to slide forward. While her body slid through the door frame, her right upper extremity went thorough the sheet rock, hitting her right shoulder on the door frame. Patient fell causing her right shoulder to "twist" in an awkward way as the arm was stuck in the wall. No numbness, tingling weakness. Worse when reaching behind her back like to put hands in back pocket and when raising arm above 90 degrees. Historian: Patient, Family Member Arrival Mode: Car Lens Assistant Required: No Onset (how long ago): day(s) (10) Location: Rt shoulder Quality: sharp Radiation: Reports non-radiation Onset quality: unable to specify Duration (how long): day(s) (10) Progression: worsening Chronicity: new Context: Reports trauma/injury Relieving factors: rest Exacerbating factors: movement Associated symptoms: Denies chest pain, Denies cough, Denies diaphoresis, Denies fever/chills, Denies nausea/vomiting Past Medical/Family History Physician Review I have reviewed the patient's past medical and family history. Any updates have been documented here. Past Medical History Recent Fever: No Clinical Suspicion of Infectio: No New/Unexplained Change in Ment: No Past Medical History: Hypertension, Diabetes, Asthma, Anxiety, Depression, GERD, Hyperlipedemia Other Medical History: GERD DEPRESSION Past Surgical History: Cholecysctectomy, Hysterectomy Other Surgery: BREAST REDUCTION SPINAL SURGERY Social History Smoking Cessation: Unknown if ever smoked Alcohol Use: None Any Illegal Drug Use: No Other Last Tetanus: UTD Any Pre-Existing Lines (PICC,: No Review of Systems Review of Systems Constitutional: Denies chills, Denies fever EENTM: Denies nose pain, Denies nose congestion, Denies throat pain, Denies throat swelling Cardiovascular: Denies chest pain Respiratory: Denies cough, Denies dyspnea Gastrointestinal: Denies abdominal pain, Denies diarrhea Genitourinary: Denies dysuria Musculoskeletal: Reports as per HPI, Reports joint pain; Denies back pain Integumentary: Denies rash Neurological: Denies headache, Denies numbness, Denies paresthesia, Denies tingling, Denies weakness Psychological: Denies anxiety Endocrine: Denies increased urination Hematological/Lymphatic: Reports easy bruising; Denies easy bleeding Physical Exam Related Data Allergies: Coded Allergies: No Known Allergies (Unverified , 05/13/14) Triage Vital Signs Vital Signs Date Time Temp Pulse Resp B/P (MAP) Pulse Ox O2 Delivery O2 Flow Rate FiO2 01/08/20 14:10 97.9 90 18 119/70 98 Physical Exam CONSTITUTIONAL Constitutional: Present well-developed, Present well-nourished HENT HENT: Present normocephalic, Present atraumatic, Present oropharynx clear/moist, Present nose normal HENT L/R: Present left ext ear normal, Present right ext ear normal EYES Eyes: Reports PERRL, Reports conjunctivae normal NECK Neck: Present ROM normal, Present other (no midline tenderness, FROM) PULMONARY Pulmonary: Present effort normal, Present breath sounds normal CARDIOVASCULAR Cardiovascular: Present regular rhythm, Present heart sounds normal, Present capillary refill normal, Present normal rate GASTROINTESTINAL Abdominal: Present soft, Present nontender, Present bowel sounds normal GENITOURINARY SKIN Skin: Present warm, Present dry MUSCULOSKELETAL Musculoskeletal: Present tenderness (anterior right shoulder), Present other (pain with raising right shoulder above 90 degrees agaist resistance and with reaching behind back with right UE. No pain with palpation and FROM to elbow and wrist.); Absent deformity NEUROLOGICAL Neurological: Present alert, Present oriented x 3, Present no gross motor or sensory deficits; Absent sensory deficit, Absent abnormal gait PSYCHOLOGICAL Psychological: Present mood/affect normal, Present judgement normal Results Imaging Imaging Comments right shoulder negative Procedures Orthopedic Splinting/Casting Injury: Injury #1 Side: right Upper exremity injury location: shoulder Upper extremity immobilizer: sling/shoulder immobilizer Additional comments NV intact after sling placement Assessment & Plan Medical Decision Making MDM Differential dx includes, but not limited to: fracture, sprain, stain, contusion, rotator cuff tear Assessment & Plan Final Impression: (1) Rotator cuff arthropathy Depart Disposition: HOME, SELF-CARE Last Vital Signs Date Time Temp Pulse Resp B/P (MAP) Pulse Ox O2 Delivery O2 Flow Rate FiO2 01/08/20 14:10 97.9 90 18 119/70 98 Home Meds Reported Medications Omeprazole (OMEPRAZOLE) 40 Mg Capsule.dr, 40 MG PO BID 05/13/14 Fluoxetine Hcl (PROZAC) 40 Mg Capsule, 80 MG PO DAILY 05/13/14 Levothyroxine Sodium (SYNTHROID) 25 Mcg Tablet 05/13/14 Trazodone Hcl (TRAZODONE HCL) 150 Mg Tablet, 150 MG PO HS 05/13/14 Medications in the ED Ibuprofen 600 mg ONCE ONCE PO Last administered on 01/08/20at 14:50; Admin Dose 600 MG; Start 01/08/20 at 15:00; Stop 01/08/20 at 15:01 Ibuprofen 600 mg STK-MED ONCE .ROUTE ; Start 01/08/20 at 14:57; Stop 01/08/20 at 14:51; Status DC SUSAN RINCON MD Jan 08, 2020 15:21
== END 2020-01-08 15:30 | disposition home or self-care (01) ==
LOC: FSED 14:11
DX: M25.511 Pain in right shoulder (principal); M12.811 Other specific arthropathies, not elsewhere classified, right shoulder; W01.0XXA Fall on same level from slipping, tripping and stumbling without subsequent striking against object, initial encounter; Y93.01 Activity, walking, marching and hiking; I10 Essential (primary) hypertension; E11.9 Type 2 diabetes mellitus without complications; E78.5 Hyperlipidemia, unspecified; K21.9 Gastro-esophageal reflux disease without esophagitis; J45.909 Unspecified asthma, uncomplicated
CPT/HCPCS: 99283

== ENCOUNTER → 2020-07-05 | Day surgery (SDC) | payer MEDICARE, OTHER ==
[2020-07-03 11:52] LABS: BASOPHILS % 0.2 % (0.0-1.0); EOSINOPHILS # (AUTO) 0.1 (0.0-0.4); EOSINOPHILS % 2.2 % (0.0-6.0); HEMATOCRIT 32.9 % (34.2-44.1); HEMOGLOBIN 10.5 g/dL (12.0-16.0); LYMPHOCYTES # (AUTO) 0.8 (1.0-3.2); LYMPHOCYTES % 18.1 % (18.0-39.1); MEAN CORPUSCULAR HEMOGLOBIN 25.8 pg (28-32); MEAN CORPUSCULAR HGB CONC 31.9 g/dL (31-35); MEAN CORPUSCULAR VOLUME 80.8 fL (81-99); MONOCYTES # (AUTO) 0.3 (0.2-0.8); MONOCYTES % 7.1 % (4.4-11.3); NEUTROPHILS # (AUTO) 3.3 (2.1-6.9); PLATELET COUNT 116 x10e3/uL (140-360); RED BLOOD COUNT 4.07 x10e6/uL (3.6-5.1); RED CELL DISTRIBUTION WIDTH 14.4 % (11.7-14.4)
[2020-07-03 12:08] LABS: INR 0.93; PROTHROMBIN TIME 13.1 seconds (11.9-14.5)
[2020-07-03 12:10] LABS: ALBUMIN 3.7 g/dL (3.5-5.0); ALBUMIN/GLOBULIN RATIO 0.9 (0.8-2.0); ANION GAP 14.3 mmol/L (8-16); CALCIUM 8.7 mg/dL (8.4-10.2); CREATININE, SERUM 0.96 mg/dL (0.57-1.11); POTASSIUM 4.3 mmol/L (3.5-5.1)
[~2020-07-05] MED LIST changes: +BENICAR20 MG PO; +EFFEXOR XR150 MG PO; +FENTANYL CITRATE/PF 100MCG/2 ML INJ ONE; +FUROSEMIDE80 MG PO; +GLIPIZIDE10 MG PO; +IMIPRAMINE HCL10 MG PO; +IOPAMIDOL 200 MG/ML 20 ML VIAL IT ONE; +ISOPTO CARPINE15 ML OP; +JANUVIA50 MG PO; +LIDOCAINE HCL 1% 30ML-PF VIAL ONE; +LIDOCAINE HCL 2% LOCAL INJ 5 ML SDV VIAL INJ ONE; +METFORMIN HCL1000 MG PO; +MIDAZOLAM HCL 2 MG/2 ML VIAL ONE; +NEURONTIN300 MG PO; +PILOCARPINE HCL PO; +POVIDONE IODINE 0.05% 0.05 % ML PO ONE; +PROPOFOL IV EMULSION 10 MG/ML 20 ML VIAL ONE; +SPIRONOLACTONE25 MG PO; -SYNTHROID25 MCG; +SYNTHROID25 MCG PO; +TRIAMCINOLONE ACET 40 MG/ML VIAL ONE; +TYLENOL # 31 EA PO
[2020-07-05 06:45] VITALS: BP 91/52
== END | disposition home or self-care (01) ==
LOC: OR 05:17
PROVIDERS: ATTEND Physical Medicine & Rehabilitation Pain Medicine
DX: M17.12 Unilateral primary osteoarthritis, left knee (principal); M25.561 Pain in right knee; I10 Essential (primary) hypertension; E11.9 Type 2 diabetes mellitus without complications; K21.9 Gastro-esophageal reflux disease without esophagitis; E03.9 Hypothyroidism, unspecified; K74.60 Unspecified cirrhosis of liver; Z88.6 Allergy status to analgesic agent; Z91.048 Other nonmedicinal substance allergy status; Z01.810 Encounter for preprocedural cardiovascular examination; Z01.812 Encounter for preprocedural laboratory examination; Z20.822 Contact with and (suspected) exposure to COVID-19; Z79.84 Long term (current) use of oral hypoglycemic drugs
CPT/HCPCS: 20610; 36415 ×2; 77002; 80053; 82948; 85025; 85610; 85730; 93005; J2001 ×2; J2704; J3301; Q9967; U0002; 76000; J2250; J3010

== ENCOUNTER → 2020-07-12 | Day surgery (SDC) | payer MEDICARE, OTHER ==
[~2020-07-12] MED LIST changes: -POVIDONE IODINE 0.05% 0.05 % ML PO ONE
[2020-07-12 07:35] VITALS: BP 106/59
== END | disposition home or self-care (01) ==
LOC: OR 06:02
PROVIDERS: ATTEND Physical Medicine & Rehabilitation Pain Medicine
DX: M17.11 Unilateral primary osteoarthritis, right knee (principal); M25.511 Pain in right shoulder; G89.29 Other chronic pain; I10 Essential (primary) hypertension; E03.9 Hypothyroidism, unspecified; E11.9 Type 2 diabetes mellitus without complications; K21.9 Gastro-esophageal reflux disease without esophagitis; K74.60 Unspecified cirrhosis of liver; F32.9 Major depressive disorder, single episode, unspecified; Z88.6 Allergy status to analgesic agent; Z91.048 Other nonmedicinal substance allergy status; Z01.812 Encounter for preprocedural laboratory examination; Z20.822 Contact with and (suspected) exposure to COVID-19; Z79.84 Long term (current) use of oral hypoglycemic drugs; Z85.72 Personal history of non-Hodgkin lymphomas; Z92.3 Personal history of irradiation
CPT/HCPCS: 20610; 36415; 77002; 82948; J2001 ×2; J2250; J2704; J3010; J3301; Q9967; U0002; 76000

== ENCOUNTER → 2020-08-23 | Day surgery (SDC) | payer MEDICARE, OTHER ==
[2020-08-20 15:57] LABS: BASOPHILS % 0.3 % (0.0-1.0); EOSINOPHILS # (AUTO) 0.2 (0.0-0.4); EOSINOPHILS % 4.1 % (0.0-6.0); HEMOGLOBIN 10.7 g/dL (12.0-16.0); LYMPHOCYTES % 26.1 % (18.0-39.1); MEAN CORPUSCULAR HEMOGLOBIN 25.5 pg (28-32); MEAN CORPUSCULAR HGB CONC 31.5 g/dL (31-35); MONOCYTES # (AUTO) 0.3 (0.2-0.8); MONOCYTES % 8.5 % (4.4-11.3); NEUTROPHILS # (AUTO) 2.3 (2.1-6.9); NEUTROPHILS % 60.2 % (38.7-80.0); PLATELET COUNT 122 x10e3/uL (140-360); RED CELL DISTRIBUTION WIDTH 14.4 % (11.7-14.4)
[2020-08-21 16:25] LABS: ALBUMIN 3.9 g/dL (3.5-5.0); ALBUMIN/GLOBULIN RATIO 1.1 (0.8-2.0); CALCIUM 8.8 mg/dL (8.4-10.2); CREATININE, SERUM 0.87 mg/dL (0.57-1.11); INR 0.92; PARTIAL THROMBOPLASTIN TIME 29.2 seconds (23.8-35.5); PROTHROMBIN TIME 12.9 seconds (11.9-14.5)
[~2020-08-23] MED LIST changes: -FENTANYL CITRATE/PF 100MCG/2 ML INJ ONE; -TRIAMCINOLONE ACET 40 MG/ML VIAL ONE
[2020-08-23 07:25] VITALS: BP 111/66
== END | disposition home or self-care (01) ==
LOC: OR 11:44
PROVIDERS: ATTEND Physical Medicine & Rehabilitation Pain Medicine
DX: M17.12 Unilateral primary osteoarthritis, left knee (principal); M25.511 Pain in right shoulder; M25.561 Pain in right knee; G89.29 Other chronic pain; F32.9 Major depressive disorder, single episode, unspecified; I10 Essential (primary) hypertension; E11.9 Type 2 diabetes mellitus without complications; E03.9 Hypothyroidism, unspecified; K21.9 Gastro-esophageal reflux disease without esophagitis; K76.9 Liver disease, unspecified; Z88.6 Allergy status to analgesic agent; Z91.048 Other nonmedicinal substance allergy status; Z79.84 Long term (current) use of oral hypoglycemic drugs
CPT/HCPCS: 20610; 36415 ×2; 77002; 80053; 82948; 85025; 85610; 85730; J2001 ×2; J2250; J2704; Q9967

== ENCOUNTER → 2020-08-30 | Day surgery (SDC) | payer MEDICARE, OTHER ==
[~2020-08-30] MED LIST changes: +HYALURONIDASE 16 MG/2 ML SYR ONE; +IOPAMIDOL 300 MG/ML 15ML VIAL IT ONE; -LIDOCAINE HCL 2% LOCAL INJ 5 ML SDV VIAL INJ ONE; -MIDAZOLAM HCL 2 MG/2 ML VIAL ONE; -PROPOFOL IV EMULSION 10 MG/ML 20 ML VIAL ONE
[2020-08-30 07:45] VITALS: BP 109/58
== END | disposition home or self-care (01) ==
LOC: OR 05:48
PROVIDERS: ATTEND Physical Medicine & Rehabilitation Pain Medicine
DX: M17.11 Unilateral primary osteoarthritis, right knee (principal); M25.562 Pain in left knee; M25.511 Pain in right shoulder; I10 Essential (primary) hypertension; E11.9 Type 2 diabetes mellitus without complications; E03.9 Hypothyroidism, unspecified; K74.60 Unspecified cirrhosis of liver; Z88.6 Allergy status to analgesic agent; Z91.048 Other nonmedicinal substance allergy status; Z79.84 Long term (current) use of oral hypoglycemic drugs
CPT/HCPCS: 20610; 36415; 77002; 82948; J2001; J7325; Q9967

== ENCOUNTER → 2020-09-06 | Day surgery (SDC) | payer MEDICARE, OTHER ==
[~2020-09-06] MED LIST changes: -IOPAMIDOL 200 MG/ML 20 ML VIAL IT ONE; -IOPAMIDOL 300 MG/ML 15ML VIAL IT ONE; +IOPAMIDOL 300MG/ML 50ML INFUS..BTL IV ONE; +POVIDONE IODINE 0.05% 0.05 % ML PO ONE; +PROPOFOL IV EMULSION 10 MG/ML 20 ML VIAL ONE
[2020-09-06 06:50] VITALS: BP 116/63
== END | disposition home or self-care (01) ==
LOC: OR 05:31
PROVIDERS: ATTEND Physical Medicine & Rehabilitation Pain Medicine
DX: M17.12 Unilateral primary osteoarthritis, left knee (principal); M25.562 Pain in left knee; I10 Essential (primary) hypertension; E11.9 Type 2 diabetes mellitus without complications; E03.9 Hypothyroidism, unspecified; Z88.5 Allergy status to narcotic agent; Z91.048 Other nonmedicinal substance allergy status; Z79.84 Long term (current) use of oral hypoglycemic drugs
CPT/HCPCS: 20610; 36415; 77002; 82948; J2001; J2704; J7325; Q9967

== ENCOUNTER → 2020-09-13 | Day surgery (SDC) | payer MEDICARE, OTHER ==
[~2020-09-13] MED LIST changes: +FENTANYL CITRATE/PF 100MCG/2 ML INJ ONE; -HYALURONIDASE 16 MG/2 ML SYR ONE; +IOPAMIDOL 200 MG/ML 20 ML VIAL IT ONE; -IOPAMIDOL 300MG/ML 50ML INFUS..BTL IV ONE; +MIDAZOLAM HCL 2 MG/2 ML VIAL ONE
[2020-09-13 09:00] VITALS: BP 107/60
== END | disposition home or self-care (01) ==
LOC: OR 06:23
PROVIDERS: ATTEND Physical Medicine & Rehabilitation Pain Medicine
DX: M17.11 Unilateral primary osteoarthritis, right knee (principal); M25.511 Pain in right shoulder; M25.562 Pain in left knee; G89.29 Other chronic pain; I10 Essential (primary) hypertension; E03.9 Hypothyroidism, unspecified; E11.9 Type 2 diabetes mellitus without complications; K21.9 Gastro-esophageal reflux disease without esophagitis; K74.60 Unspecified cirrhosis of liver; Z88.6 Allergy status to analgesic agent; Z91.048 Other nonmedicinal substance allergy status; Z79.84 Long term (current) use of oral hypoglycemic drugs
CPT/HCPCS: 20610; 36415; 77002; 82948; J2001; J2250; J2704; J3010; Q9967

== ENCOUNTER → 2020-09-20 | Day surgery (SDC) | payer MEDICARE, OTHER ==
[~2020-09-20] MED LIST changes: -FENTANYL CITRATE/PF 100MCG/2 ML INJ ONE; +HYALURONIDASE 16 MG/2 ML SYR ONE; -MIDAZOLAM HCL 2 MG/2 ML VIAL ONE; -POVIDONE IODINE 0.05% 0.05 % ML PO ONE; -PROPOFOL IV EMULSION 10 MG/ML 20 ML VIAL ONE
[2020-09-20 07:10] VITALS: BP 106/58
== END | disposition home or self-care (01) ==
LOC: OR 05:20
PROVIDERS: ATTEND Physical Medicine & Rehabilitation Pain Medicine
DX: M17.12 Unilateral primary osteoarthritis, left knee (principal); M25.561 Pain in right knee; M25.511 Pain in right shoulder; M48.00 Spinal stenosis, site unspecified; I10 Essential (primary) hypertension; Z85.72 Personal history of non-Hodgkin lymphomas; E03.9 Hypothyroidism, unspecified; E11.9 Type 2 diabetes mellitus without complications; K21.9 Gastro-esophageal reflux disease without esophagitis; R32 Unspecified urinary incontinence; Z91.048 Other nonmedicinal substance allergy status; Z88.6 Allergy status to analgesic agent; Z79.84 Long term (current) use of oral hypoglycemic drugs
CPT/HCPCS: 20610; 36415; 77002; 82948; J2001; J7325; Q9967

== ENCOUNTER → 2020-09-27 | Day surgery (SDC) | payer MEDICARE, OTHER ==
[~2020-09-27] MED LIST changes: +POVIDONE IODINE 0.05% 0.05 % ML PO ONE; +PROPOFOL IV EMULSION 10 MG/ML 20 ML VIAL ONE
[2020-09-27 07:00] VITALS: BP 100/57
== END | disposition home or self-care (01) ==
LOC: OR 05:33
PROVIDERS: ATTEND Physical Medicine & Rehabilitation Pain Medicine
DX: M17.11 Unilateral primary osteoarthritis, right knee (principal); Z88.5 Allergy status to narcotic agent; Z91.048 Other nonmedicinal substance allergy status; I10 Essential (primary) hypertension; E11.9 Type 2 diabetes mellitus without complications; Z79.4 Long term (current) use of insulin; E03.9 Hypothyroidism, unspecified
CPT/HCPCS: 20610; 36415; 77002; 82948; J2001; J2704; J7325; Q9967

== ENCOUNTER 2020-12-15 11:15 | Emergency (ER) | payer MEDICARE, OTHER ==
[~2020-12-15] VITALS: Ht 160 cm; Wt 88.5 kg
[~2020-12-15 11:15] MED LIST changes: -HYALURONIDASE 16 MG/2 ML SYR ONE; -IOPAMIDOL 200 MG/ML 20 ML VIAL IT ONE; -LIDOCAINE HCL 1% 30ML-PF VIAL ONE; -POVIDONE IODINE 0.05% 0.05 % ML PO ONE; -PROPOFOL IV EMULSION 10 MG/ML 20 ML VIAL ONE
== END 2020-12-15 12:10 | disposition home or self-care (01) ==
LOC: FSED 11:28
DX: M79.672 Pain in left foot (principal); M19.072 Primary osteoarthritis, left ankle and foot; I10 Essential (primary) hypertension; E11.9 Type 2 diabetes mellitus without complications; K21.9 Gastro-esophageal reflux disease without esophagitis; F32.A Depression, unspecified
CPT/HCPCS: 99283

== ENCOUNTER 2021-02-07 14:30 | Emergency (ER) | payer MEDICARE, OTHER ==
[~2021-02-07] VITALS: Ht 165.1 cm; Wt 90.0 kg
== END 2021-02-07 16:23 | disposition home or self-care (01) ==
LOC: FSED 14:45
DX: S93.402A Sprain of unspecified ligament of left ankle, initial encounter (principal); S93.602A Unspecified sprain of left foot, initial encounter; S80.01XA Contusion of right knee, initial encounter; W01.0XXA Fall on same level from slipping, tripping and stumbling without subsequent striking against object, initial encounter; Y93.01 Activity, walking, marching and hiking; Y92.008 Other place in unspecified non-institutional (private) residence as the place of occurrence of the external cause; I10 Essential (primary) hypertension; E11.9 Type 2 diabetes mellitus without complications; K21.9 Gastro-esophageal reflux disease without esophagitis; F32.A Depression, unspecified
CPT/HCPCS: 99283